=== PATIENT | male | born 1940 | race Caucasian/White ===

== ENCOUNTER 2016-12-18 14:25 | Inpatient (IN) | payer MEDICARE ==
[~2016-12-18] VITALS: Ht 170.2 cm; Wt 63.5 kg
[~2016-12-18 14:25] MED LIST: ALBU17IN INH; ALEV220C2 PO; ASPI81TA7 PO; DOCU250C PO; FINA5TAB2 PO; METO25TA74 PO; PRED10TA PO; PROA1AER INH; RANI75TA9 PO; SYNT75TA PO
[2016-12-18] MEDS ORDERED: NS 1,000 ML IV SCH (14:39)
[2016-12-18] MEDS ORDERED: OMEP20CA3 PO (14:40)
[2016-12-18] MEDS ORDERED: NS 500 ML IV ONE (14:45)
[2016-12-18 15:10] LABS: VENOUS O2 SATURATION 75.7 % (60.0-80.0); VENOUS PARTIAL PRESSURE CO2 51.1 mmHg (38.0-50.0); VENOUS PARTIAL PRESSURE O2 41.9 mmHg (30.0-50.0); VENOUS STANDARD HCO3 27.5 MEQ/L; VENOUS TOTAL CO2 31.6 MEQ/L (24.0-28.0)
[2016-12-18 15:11] LABS: BASO % 0.5 % (0.0-1.0); EOS % 0.6 % (0.0-3.0); LARGE UNSTAINED CELL # 0.1 K/mm3 (0.0-0.4); LARGE UNSTAINED CELL % 1.2 % (0.0-4.0); LYMPH # 0.7 K/mm3 (1.5-4.5); LYMPH % 12.7 % (24.0-44.0); MEAN CORPUSCULAR HEMOGLOBIN 34.6 pg (27.0-33.0); MEAN CORPUSCULAR HGB CONC 33.8 g/dl (32.0-36.5); MEAN CORPUSCULAR VOLUME 102.5 fl (80.0-96.0); MONO # 0.4 K/mm3 (0.0-0.8); MONO % 7.8 % (0.0-5.0); NEUTROPHILS # 4.3 K/mm3 (1.8-7.7); NEUTROPHILS % 77.3 % (36.0-66.0); PLATELET COUNT, AUTOMATED 269 k/mm3 (150-450); WHITE BLOOD COUNT 5.6 K/mm3 (4.0-10.0)
--- NOTE | 2016-12-18 15:25 | REP ---
CT of the brain without IV contrast: Comparison 05/17 2011. There is no hemorrhage. There is no focal edema, mass effect or midline shift. The sulci and ventricles are enlarged. This has progressed and is compatible with diffuse volume loss. There is a mild heterogeneity in the periventricular white matter compatible with chronic microvascular ischemia. This is unchanged. The visualized paranasal sinuses and mastoid air cells are clear. Impression: There is no hemorrhage, acute infarct or mass. There is diffuse volume loss and evidence for chronic microvascular ischemia. Signed by Gaurang Noguera MD 12/18/2016 03:17 P
[2016-12-18 15:43] LABS: ALBUMIN 3.1 GM/DL (3.2-5.2); ALBUMIN/GLOBULIN RATIO 0.84 (1.00-1.93); ALKALINE PHOSPHATASE 80 U/L (45-117); ALT/SGPT 23 U/L (12-78); ANION GAP 5 MEQ/L (8-16); AST/SGOT 33 U/L (15-37); BILIRUBIN,DIRECT < 0.1 MG/DL (0.0-0.2); BILIRUBIN,TOTAL 0.5 MG/DL (0.2-1.0); BLOOD UREA NITROGEN 17 MG/DL (7-18); CALCIUM LEVEL 8.2 MG/DL (8.8-10.2); CARBON DIOXIDE LEVEL 31 MEQ/L (21-32); CHLORIDE LEVEL 101 MEQ/L (98-107); CREATININE FOR GFR 0.57 MG/DL (0.70-1.30); GLOMERULAR FILTRATION RATE > 60.0 (>42); GLUCOSE, FASTING 91 MG/DL (83-110); POTASSIUM SERUM 4.8 MEQ/L (3.5-5.1); SODIUM LEVEL 137 MEQ/L (136-145); TOTAL PROTEIN 6.8 GM/DL (6.4-8.2)
--- NOTE | 2016-12-18 16:06 | REP ---
The portable chest, single frontal view, patient sitting upright: Comparisons 06/02/2016. The lung glez are clear. The cardiac size is normal. The lolita, mediastinum, and bony thorax are unremarkable. Impression: Negative portable chest. Signed by Gaurang Noguera MD 12/18/2016 03:59 P
[2016-12-18 16:28] LABS: METHADONE URINE NEGATIVE (NEGATIVE)
--- NOTE | 2016-12-18 16:44 | REP ---
Per one cans the right foot four views: There is diffuse demineralization. There is a nondisplaced spiral fracture of the distal shaft of the fifth digit metatarsal. There is no dislocation. No other fracture is identified. Joint spaces are unremarkable. No unusual calcifications. Impression: Nondisplaced spiral fracture of the distal shaft of the fifth digit metatarsal. Signed by Gaurang Noguera MD 12/18/2016 04:35 P
[2016-12-18] MEDS ORDERED: DOCU100C PO (18:56)
[2016-12-18] MEDS ORDERED: DOCUSATE SODIUM 100 MG CAP PO PRN (19:15)
[2016-12-18 19:50] VITALS: BP_SYST 123; BP_SYST 140; BP_DIAS 73; BP_DIAS 80
--- NOTE | 2016-12-18 20:41 | HPE ---
DATE OF ADMISSION: 12/18/2016 CHIEF COMPLAINT: Confusion. HISTORY OF PRESENT ILLNESS: The patient is a 76-year-old man who was brought to the emergency room by his son for reportedly having falls over the last few days as well as increased confusion. He tells me that at times in the day the patient does not know where he is or what is going on. At the present time, the patient is smoking imaginary cigarettes. He is disoriented to place, time and situation. He is only oriented to person. He recognizes his son but nobody else. Otherwise, the patient denies chest pain, shortness of breath, fevers, chills, nausea, vomiting, or diarrhea. No changes in bowel or bladder habits. The patient's son otherwise has not noticed any changes in his attitude. PAST MEDICAL HISTORY: 1. Dementia. 2. Benign prostatic hypertrophy (BPH) . 3. Hypothyroidism. 4. Hypertension. 5. Gastroesophageal reflux disease (GERD). 6. Chronic obstructive pulmonary disease (COPD). 7. Anxiety. 8. Alcohol abuse. 9. Tobacco abuse. ALLERGIES: The patient has no drug allergies. SURGICAL HISTORY: Cataract removal. REVIEW OF SYSTEMS: Negative other than in the history of present illness. FAMILY HISTORY: Noncontributory. SOCIAL HISTORY: The patient drinks approximately two alcoholic beverages per day. He reportedly drank significantly more in the past. He is an active smoker. He lives with his son since his last discharge. HOME MEDICATIONS: - Aleve 220 mg by mouth as needed for pain - Ventolin HFA every four hours as needed for shortness of breath - aspirin 81 mg daily - docusate 100 mg by mouth daily as needed for constipation - finasteride 5 mg daily - levothyroxine 75 mcg in the morning - metoprolol succinate extended release 25 mg daily - omeprazole 20 mg daily PHYSICAL EXAMINATION: VITAL SIGNS: Temperature 97.5, pulse 84, respiratory rate 24, blood pressure 115/74, oxygen saturation 91% on room air. GENERAL: He is a disheveled, elderly, man lying in bed pretending to smoke cigarettes and watching television. He does not appear to be in any acute distress. He is disheveled. He has poor dentition. He is malodorous. He has dry mucous membranes. He appears much more deconditioned and unkempt from the last time I saw him. CARDIOVASCULAR EXAM: S1, S2. Regular rate and rhythm. RESPIRATORY EXAM: Clear. ABDOMINAL EXAM: Bowel sounds present. The abdomen is soft and nontender. EXTREMITIES: No clubbing, cyanosis or edema. His right lower extremity is in a hard shoe. LABORATORY DATA: WBC 5.6, hemoglobin 12.7, hematocrit 37.6, platelet count 269. Chemistry panel: Sodium 137, potassium 4.8, chloride 101, bicarbonate 31, BUN 17, creatinine 0.5. CK 335, TSH 4.0. Toxicology is negative. Serum ethanol negative. UA is essentially unremarkable. Urine culture is pending. Blood culture is pending. IMAGING: The patient did have a CT of the head, which revealed no hemorrhage, acute infarct. The patient also had a chest x-ray, which revealed a negative portable chest. Foot x-ray revealed nondisplaced spiral fracture of the distal shaft of 5th digit metatarsal. ASSESSMENT AND PLAN: This is a 76-year-old man with changes in mentation. 1. Changes in mentation. I strongly suspect that this patient is having progressive dementia. I did see him back in May and at that time he had a B12 level checked, TSH level checked and it was a similar presentation where he had dementia. He was seen by psychiatry at that time as well, who determined that it was highly suspicious for dementia and he was eventually discharged home to the care of his son, who was told to followup with his primary care provider. Once again, the son presents and now tells me that the mental status change is not a chronic change but acute. My suspicion is that this is a continuation of his dementia that has already been evaluated here previously. To complete a dementia workup, I will check an ammonia level and MRI of the brain and admit him to observation status. Should he not be having an acute CVA or any other etiology to explain his changes in mentation, I do not see any acute abnormalities in his laboratories to explain his mental status, I suspect that he will require placement. It is also likely that the fracture of his right foot may be worsening his acute on chronic dementia. 2. Right foot fracture. I did discuss the case with Dr. Geller of orthopedic surgery, who suggested that the patient be weight bearing as tolerated and stiff soled shoe. He is to followup with orthopedics in one week. The patient should work with physical therapy (PT). He normally walks with a walker. A patient and family services (PFS) consultation has been placed. 3. Benign prostatic hypertrophy (BPH) . Continue with finasteride. 4. Alcohol abuse. The patient has not been drinking lately as he has been more confused. His serum alcohol level is negative. During his last stay he did become worsening confusion and lethargy with benzodiazepine. If he does become agitated, consider Serax, as previously recommended by psychiatry. I will place him on folic acid, multivitamin, thiamine. He will be monitored for any signs of symptoms of alcohol withdrawal. 5. Hypertension. The patient is on metoprolol. 6. Gastroesophageal reflux disease (GERD). The patient is on omeprazole. 7. Hypothyroidism. The patient is on levothyroxine. 8. Chronic obstructive pulmonary disease (COPD). The patient is on albuterol. 9. Deep vein thrombosis (DVT) prophylaxis. The patient is on Lovenox. 10. Tobacco use. Cessation counseling offered. DISPOSITION: The patient is admitted to the medical/surgical floor to Dr. Virgen's service. CARMENZA
[2016-12-18] MEDS: MULTIVITAMINS/MINERALS THERAP 1 TAB PO SCH (21:00)
[2016-12-18] MEDS: ASPIRIN 81 MG ENTERIC TAB PO SCH (21:00)
[2016-12-18] MEDS: OMEPRAZOLE 20 MG CAP PO SCH (21:00)
[2016-12-18] MEDS: FOLIC ACID 1 MG TAB PO SCH (21:00)
[2016-12-18] MEDS: FINASTERIDE 5 MG TAB PO SCH (21:00)
[2016-12-18] MEDS: METOPROLOL SUCC *XL* 25MG TAB (TopROL *XL*) PO SCH (21:01)
[2016-12-18] MEDS: THIAMINE 100 MG TAB PO SCH (21:01)
[2016-12-18] MEDS: SENOKOT S TAB PO SCH (21:04)
[2016-12-18] MEDS: PERCOCET 5MG/325MG TAB PO PRN (21:05)
[2016-12-18 22:00] VITALS: BP 140/80
[2016-12-19 05:40] LABS: MEAN CORPUSCULAR HEMOGLOBIN 33.3 pg (27.0-33.0); MEAN CORPUSCULAR HGB CONC 33.4 g/dl (32.0-36.5); MEAN CORPUSCULAR VOLUME 99.7 fl (80.0-96.0); WHITE BLOOD COUNT 6.6 K/mm3 (4.0-10.0)
[2016-12-19 05:50] LABS: ANION GAP 5 MEQ/L (8-16); BLOOD UREA NITROGEN 19 MG/DL (7-18); CALCIUM LEVEL 8.1 MG/DL (8.8-10.2); CARBON DIOXIDE LEVEL 28 MEQ/L (21-32); CHLORIDE LEVEL 104 MEQ/L (98-107); CREATININE FOR GFR 0.55 MG/DL (0.70-1.30); GLOMERULAR FILTRATION RATE > 60.0 (>42); GLUCOSE, FASTING 86 MG/DL (83-110); POTASSIUM SERUM 3.7 MEQ/L (3.5-5.1); SODIUM LEVEL 137 MEQ/L (136-145)
[2016-12-19] MEDS: LEVOTHYROXINE 0.075 MG TAB (75 MCG) PO SCH (05:52)
[2016-12-19 06:00] VITALS: BP 146/73
[2016-12-19 06:18] LABS: T UPTAKE 37 % (33-40)
[2016-12-19 06:19] LABS: THYROXINE (T4) 7.7 UG/DL (4.5-12.0)
--- NOTE | 2016-12-19 07:20 | ECGEPIP ---
Stationary ECG Study [facility] - ED Test Date: 2016-12-18 Pat Name: RYAN BAUTISTA Department: Room: - Gender: M Web Project Manager: DAKOTA : 1940 Requested By: HELEN MCDONALD Order Number: [id number] Reading MD: Mady Lema Measurements Intervals [place] Rate: 79 P: 52 LA: 178 QRS: 37 QRSD: 82 T: 51 QT: 368 QTc: 422 Interpretive Statements SINUS RHYTHM SEPTAL MYOCARDIAL INFARCTION, PROBABLY OLD NSTTW ABNORMALITY SIMILAR 06/02/16 Electronically Signed On 12-19-2016 7:20:13 EDT by Mady Lema
[2016-12-19] MEDS: LACTULOSE 20 GM/30 ML SYRUP UD PO SCH ×3 (09:01→14:19)
[2016-12-19] MEDS: FOLIC ACID 1 MG TAB PO SCH (09:04)
[2016-12-19] MEDS: ASPIRIN 81 MG ENTERIC TAB PO SCH (09:04)
[2016-12-19] MEDS: MULTIVITAMINS/MINERALS THERAP 1 TAB PO SCH (09:04)
[2016-12-19] MEDS: FINASTERIDE 5 MG TAB PO SCH (09:04)
[2016-12-19] MEDS: THIAMINE 100 MG TAB PO SCH (09:04)
[2016-12-19] MEDS: SENOKOT S TAB PO SCH ×2 (09:04→20:06)
[2016-12-19] MEDS: OMEPRAZOLE 20 MG CAP PO SCH (09:04)
[2016-12-19] MEDS: METOPROLOL SUCC *XL* 25MG TAB (TopROL *XL*) PO SCH (09:05)
[2016-12-19] MEDS: ENOXAPARIN 40 MG/0.4 ML SYRINGE (J1650) SC SCH (09:08)
--- NOTE | 2016-12-19 09:11 | IPN ---
DATE: 12/19/2016 The patient is seen and examined at the bedside. The chart has been reviewed. Sitter at the bedside. Has noted increasing confusion. The patient is oriented to person only, states that he is in [place]. He does not complain of any chest pain, pressure, tightness, nausea, vomiting, diarrhea, dysuria, urgency, frequency. The patient's right foot is immobilized. He has a low grade temperature this morning. No other issues overnight. Maximum temperature (T max) 100.2, current temperature 99.6, pulse 81, respiratory rate 16, blood pressure 146/73, 95% on room air. Generally, the patient is confused, awake, alert, oriented to person only, disoriented to time and place. No cyanosis, icterus. No jugular venous distention. No thyromegaly. Lungs are clear to auscultation. No wheezing, rales or rhonchi. Heart: S1, S2, sinus rhythm. Abdomen is soft, nontender, nondistended. Extremities: No edema. Neurologically, the patient is a little disoriented, awake, alert, oriented to person only. He has purposeful movements. Unable to follow commands, not cooperative. The patient is repositioning himself in bed. White count 6.6, hemoglobin 11, hematocrit 33, platelet count 273. Sodium 137, potassium 3.7, chloride 104, bicarbonate 28, BUN 19, creatinine 0.55, glucose of 86, calcium of 8.1. Methicillin-resistant Staphylococcus aureus (MRSA) and respiratory panel: Negative for respiratory panel. MRSA is pending. Urine culture and blood cultures are pending. Chest x-ray is negative. Lab data, imaging studies have been reviewed. ASSESSMENT AND PLAN: This is a 76-year-old male brought in by his son due to recurrent fall for the past few days and confusion and smoking imaginary cigarettes, recognizes his son but was inappropriate. He has a prior history of ongoing dementia, BPH, hypothyroidism, hypertension, reflux, chronic obstructive pulmonary disease (COPD), anxiety, alcohol and tobacco abuse. He was found to have a fracture of the distal shaft of the 5th digit on the right foot. IMPRESSION: 1. Right foot nondisplaced spiral fracture of the distal shaft of the 5th digit metatarsal. Orthopedic surgery has been consulted. Recommended weightbearing as tolerated and a stiff soled shoe. The patient should work with physical therapy. Usually he walks with a walker. Patient and family services (PFS) has been consulted. Followup with orthopedics in 1 weeks time. 2. Altered mental status with progressive dementia. B12 checked, TSH. Similar presentation. Obtain a full thyroid panel. He has been seen by psychiatry previously. Ammonia level is elevated; therefore, may contribute to worsening dementia. Will continue to give lactulose and check ammonia levels until normalized. 3. Low grade fever. At this time, workup has been negative. No empiric antibiotics. Continue to monitor cultures and symptoms. 4. BPH. On finasteride. 5. Alcohol abuse. Has not been drinking lately as he has been more confused. Serum alcohol is negative. During previous hospital stay, he had worsening confusion and lethargy with benzodiazepine. As needed Serax as previously recommended by psychiatry. Continue on folic acid, multivitamin and thiamine. Monitor for signs of withdrawal. 6. Hypertension. On metoprolol. 7. Reflux. On omeprazole. 8. Hypothyroidism. On levothyroxine. Await thyroid function test. 9. Chronic obstructive pulmonary disease. On albuterol. 10. Deep vein thrombosis (DVT) prophylaxis. On Lovenox.
[2016-12-19 14:00] VITALS: BP 131/87
[2016-12-19] MEDS: NICOTINE 7 MG/24 HR TRANSDERMAL TD SCH (14:19)
--- NOTE | 2016-12-19 14:29 | REP ---
Right hip two views: Comparison is 02/10/2012. There is diffuse demineralization. There is no fracture or dislocation. There is no femoral head deformity. There is minimal joint space narrowing. There are no calcifications or foreign bodies. Impression: Demineralization, otherwise negative right hip. Signed by Gaurang Noguera MD 12/19/2016 02:21 P
[2016-12-19] MEDS: PERCOCET 5MG/325MG TAB PO PRN (17:38)
[2016-12-19 22:00] VITALS: BP 140/80
[2016-12-20] MEDS: PERCOCET 5MG/325MG TAB PO PRN ×4 (01:23→17:24)
[2016-12-20 05:37] LABS: MEAN CORPUSCULAR HEMOGLOBIN 32.8 pg (27.0-33.0); MEAN CORPUSCULAR HGB CONC 32.1 g/dl (32.0-36.5); MEAN CORPUSCULAR VOLUME 102.3 fl (80.0-96.0); RED CELL DISTRIBUTION WIDTH 12.3 % (11.5-14.5); WHITE BLOOD COUNT 6.4 K/mm3 (4.0-10.0)
[2016-12-20 05:55] LABS: ANION GAP 7 MEQ/L (8-16); BLOOD UREA NITROGEN 18 MG/DL (7-18); CALCIUM LEVEL 7.9 MG/DL (8.8-10.2); CARBON DIOXIDE LEVEL 28 MEQ/L (21-32); CHLORIDE LEVEL 104 MEQ/L (98-107); CREATININE FOR GFR 0.52 MG/DL (0.70-1.30); GLOMERULAR FILTRATION RATE > 60.0 (>42); GLUCOSE, FASTING 85 MG/DL (83-110); POTASSIUM SERUM 3.6 MEQ/L (3.5-5.1); SODIUM LEVEL 139 MEQ/L (136-145)
[2016-12-20 06:00] VITALS: BP 156/88
[2016-12-20] MEDS: LEVOTHYROXINE 0.075 MG TAB (75 MCG) PO SCH (06:10)
[2016-12-20] MEDS: LIDOCAINE 5% OINT 30 GM TOP SCH ×2 (09:00→20:30)
[2016-12-20] MEDS ORDERED: PREVNAR 13 VACCINE SYRINGE (CPT CODE:90670) IM SCH (09:00)
--- NOTE | 2016-12-20 10:30 | IPNPDOC ---
Subjective Date Seen The patient was seen on 12/20/16. Subjective Chief Complaint/HPI The patient is a 76-year-old male admitted with a reason for visit of Change In Behavior. General: Reports: ROS Unobtainable (pt is laying in bed, arousable to verbal stimuli and sternal rub, but falls asleep during questions ) Objective Physical Examination General Exam: Positive: No Acute Distress, Negative: Alert (laying in bed, will arouse to verbal and sternal rub stimuli but will not stay awake to answer questions) Eye Exam: Negative: PERRLA (b/l pupils +2 mimimally reactive ), Ptosis, Sclera icteric ENT Exam: Positive: Atraumatic, Mucous membr. moist/pink Neck Exam: Positive: Supple Chest Exam: Positive: Clear to auscultation, Normal air movement, Negative: Rales, Rhonchi, Wheezing Heart Exam: Positive: Normal S1, Normal S2, Rate Normal, Negative: Murmurs Abdomen Exam: Positive: Normal bowel sounds, Soft, Negative: BS Hyperactive, BS Hypoactive, Tenderness Extremity Exam: Negative: Cyanosis, Edema Assessment /Plan Problems (1) Foot fracture, right Status: Acute Response to Treatment: Stable Problem Text: ortho consulted c/w weight bearing as tolerated and stiff soled shoe c/w PT PFS cx f/u w/ ortho outpt in 1 week after d/c (2) Altered mental status, unspecified Status: Chronic Response to Treatment: Stable Problem Text: most likely progressive dementia b12 and TSH okay presented similar to this in prior admission thyroid panel normal continue to monitor pt abusable this AM to verbal and sternal rub stimuli , will not stay awake for questions, most of history taken from pts med. records received Percocet at 0630 AM last ammonia 24 can consider d/c lactulose pupils +2 mm b/l minimally reactive neuro check q4h continue to monitor (3) Low grade fever Status: Acute Response to Treatment: Stable Problem Text: 98.2 F workup has been negative no empiric abx needed at this time continue to monitor cultures and pt symptoms (4) HTN (hypertension) Status: Chronic Response to Treatment: Stable Problem Text: 156/68 continue to monitor c/w metoprolol (5) Alcohol abuse Status: Chronic Problem Text: has not been drinking alcohol lately serum alcohol neg worsening confusion and lethargy on last admission w/ benzo. therapy, will avoid and give serax as previously recommended by psych. c/w folic acid, multivitamin and thiamine will monitor for signs of withdrawal (6) GERD (gastroesophageal reflux disease) Status: Chronic Response to Treatment: Stable Problem Text: c/w omeprazole (7) COPD (chronic obstructive pulmonary disease) Status: Chronic Response to Treatment: Stable Problem Text: c/w albuterol therapy (8) Hypothyroidism Status: Chronic Response to Treatment: Stable Problem Text: c/w levothyroxine (9) DVT prophylaxis Status: Acute Response to Treatment: Stable Problem Text: SCD TEDS Plan/VTE VTE Prophylaxis Ordered?: Yes VS, I&O, 24H, Fishbone Vital Signs/I&O Vital Signs Date Time Temp Pulse Resp B/P Pulse Ox O2 Delivery O2 Flow Rate FiO2 12/20/16 07:15 17 Room Air 12/20/16 06:00 98.2 63 156/88 92 I&O- Last 24 Hours up to 6 AM 12/20/16 06:00 Intake Total 150 ml Output Total 150 ml Balance 0 ml Laboratory Data 24H LABS Laboratory Tests 2 12/19/16 18:32: Ammonia 29 12/20/16 00:01: Ammonia 32 12/20/16 05:17: Ammonia 24, Anion Gap 7L, Blood Urea Nitrogen 18, Creatinine 0.52L, Sodium Level 139, Potassium Level 3.6, Chloride Level 104, Carbon Dioxide Level 28, Calcium Level 7.9L, Glomerular Filtration Rate > 60.0 CBC/BMP Laboratory Tests 12/20/16 05:17 Calcium Level 7.9 L, Red Blood Count 3.57 L, Mean Corpuscular Volume 102.3 H, Mean Corpuscular Hemoglobin 32.8, Mean Corpuscular Hemoglobin Concent 32.1, Red Cell Distribution Width 12.3 Microbiology Microbiology 12/18/16 Blood Culture - Preliminary, Resulted No growth after 24 hours . All specim... 12/19/16 MRSA Screen - Final, Complete 12/19/16 Respiratory Virus Panel (PCR) (ALISSA) - Final, Complete 12/18/16 Urine Culture - Final, Complete GME ATTESTATION GME ATTESTATION My preceptor for this patient encounter was physically present in the building during the encounter and was fully available. As needed, all aspects of the patient interview, examination, medical decision making process, and medical care plan development were reviewed and approved by the preceptor. Preceptor is aware and concurs with the plan as stated in the body of this note and will attest to such by his/her cosignature. BECKY MARTIN DO Dec 20, 2016 10:30
[2016-12-20] MEDS: NICOTINE 7 MG/24 HR TRANSDERMAL TD SCH (10:41)
[2016-12-20] MEDS: ENOXAPARIN 40 MG/0.4 ML SYRINGE (J1650) SC SCH (10:42)
[2016-12-20] MEDS: ASPIRIN 81 MG ENTERIC TAB PO SCH (10:43)
[2016-12-20] MEDS: FINASTERIDE 5 MG TAB PO SCH (10:43)
[2016-12-20] MEDS: MULTIVITAMINS/MINERALS THERAP 1 TAB PO SCH (10:43)
[2016-12-20] MEDS: THIAMINE 100 MG TAB PO SCH (10:43)
[2016-12-20] MEDS: SENOKOT S TAB PO SCH ×2 (10:44→20:30)
[2016-12-20] MEDS: OMEPRAZOLE 20 MG CAP PO SCH (10:44)
[2016-12-20] MEDS: FOLIC ACID 1 MG TAB PO SCH (10:44)
[2016-12-20] MEDS: METOPROLOL SUCC *XL* 25MG TAB (TopROL *XL*) PO SCH (10:46)
[2016-12-20] MEDS: ACETAMINOPHEN TAB 650MG DOSE (2X325MG) PO PRN (13:54)
[2016-12-20 14:00] VITALS: BP 116/73
[2016-12-20] MEDS: KETOROLAC 30 MG/ML VIAL (J1885) IV PRN (14:08)
--- NOTE | 2016-12-20 15:36 | REP ---
MRI BRAIN WITHOUT CONTRAST: HISTORY: Altered mental status. COMPARISON: CT 12/18/2016 The examination is incomplete. The examination is limited secondary to motion. Areas of increased signal intensity on T2-weighted images are present in the periventricular and subcortical white matter. This represents small vessel ischemic disease. There is no definite infarct, mass or midline shift. The ventricular system and cortical sulci are dilated consistent with mild volume loss. There is no extracerebral collection. Mucosal thickening is present in the left mastoid air cells. IMPRESSION: Limited examination demonstrating small vessel ischemic disease and mild volume loss. Signed by Malcolm Long MD 12/20/2016 03:52 P
[2016-12-20 22:00] VITALS: BP 128/64
[2016-12-21] MEDS: PERCOCET 5MG/325MG TAB PO PRN ×4 (00:16→23:47)
[2016-12-21 06:00] VITALS: BP 138/80
[2016-12-21] MEDS: LEVOTHYROXINE 0.075 MG TAB (75 MCG) PO SCH (06:12)
[2016-12-21] MEDS: KETOROLAC 30 MG/ML VIAL (J1885) IV PRN (06:47)
[2016-12-21 07:01] LABS: MEAN CORPUSCULAR HEMOGLOBIN 31.5 pg (27.0-33.0); MEAN CORPUSCULAR HGB CONC 31.1 g/dl (32.0-36.5); MEAN CORPUSCULAR VOLUME 101.5 fl (80.0-96.0); WHITE BLOOD COUNT 7.3 K/mm3 (4.0-10.0)
[2016-12-21 07:05] LABS: ANION GAP 5 MEQ/L (8-16); BLOOD UREA NITROGEN 24 MG/DL (7-18); CARBON DIOXIDE LEVEL 31 MEQ/L (21-32); CHLORIDE LEVEL 103 MEQ/L (98-107); CREATININE FOR GFR 0.58 MG/DL (0.70-1.30); GLOMERULAR FILTRATION RATE > 60.0 (>42); GLUCOSE, FASTING 86 MG/DL (83-110); POTASSIUM SERUM 3.8 MEQ/L (3.5-5.1); SODIUM LEVEL 139 MEQ/L (136-145)
--- NOTE | 2016-12-21 07:56 | IPNPDOC ---
Subjective Date Seen The patient was seen on 12/21/16. Subjective Chief Complaint/HPI The patient is a 76-year-old male admitted with a reason for visit of Change In Behavior. General: Denies: Chills Constitutional: Denies: Chills Eyes: Denies: Pain, Vision change, Conjunctivae inflammation, Eyelid inflammation Pulmonary: Denies: Dyspnea, Cough Cardiovascular: Denies: Chest Pain, Palpitations Gastrointestinal: Denies: Nausea, Vomiting Psych: Reports: Other Psych (pt has baseline dementia) Objective Physical Examination General Exam: Positive: No Acute Distress, Negative: Alert (laying comfortably in bed) Eye Exam: Positive: PERRLA (b/l pupils +2 mimimally reactive, unchanged from one day prior), Negative: Sclera icteric, Ptosis ENT Exam: Positive: Atraumatic, Mucous membr. moist/pink Neck Exam: Positive: Supple Chest Exam: Positive: Clear to auscultation, Normal air movement, Negative: Rales, Rhonchi, Wheezing Heart Exam: Positive: Rate Normal, Normal S1, Normal S2, Negative: Murmurs Abdomen Exam: Positive: Normal bowel sounds, Soft, Negative: BS Hyperactive, BS Hypoactive, Tenderness Extremity Exam: Negative: Cyanosis, Edema Assessment /Plan Problems (1) Foot fracture, right Status: Acute Response to Treatment: Stable Problem Text: ortho consulted-appreciate their recommendations c/w weight bearing as tolerated and stiff soled shoe c/w PT PFS cx f/u w/ ortho outpt in 1 week after d/c (2) Altered mental status, unspecified Status: Chronic Response to Treatment: Stable Problem Text: most likely progressive dementia b12 and TSH okay presented similar to this in prior admission thyroid panel normal continue to monitor pt abusable this AM to verbal and sternal rub stimuli , will not stay awake for questions, most of history taken from pts med. records received Percocet at 0630 AM last ammonia 24 can consider d/c lactulose pupils +2 mm b/l minimally reactive will consider PFS consult for potential placement neuro check q4h continue to monitor (3) Low grade fever Status: Acute Response to Treatment: Stable Problem Text: 98.2 F workup has been negative no empiric abx needed at this time continue to monitor cultures and pt symptoms (4) Right hip pain Status: Acute Response to Treatment: Stable Problem Text: hip x-ray neg for fracture will obtain right knee x-ray to further evaluate for fracture causing pain continue to monitor pain medication Percocet, toradol and lidocaine gel (5) HTN (hypertension) Status: Chronic Response to Treatment: Stable Problem Text: 138/80 continue to monitor c/w metoprolol (6) Alcohol abuse Status: Chronic Problem Text: has not been drinking alcohol lately serum alcohol neg worsening confusion and lethargy on last admission w/ benzo. therapy, will avoid and give serax as previously recommended by psych. c/w folic acid, multivitamin and thiamine will monitor for signs of withdrawal (7) GERD (gastroesophageal reflux disease) Status: Chronic Response to Treatment: Stable Problem Text: c/w omeprazole (8) COPD (chronic obstructive pulmonary disease) Status: Chronic Response to Treatment: Stable Problem Text: c/w albuterol therapy (9) Hypothyroidism Status: Chronic Response to Treatment: Stable Problem Text: c/w levothyroxine (10) DVT prophylaxis Status: Acute Response to Treatment: Stable Problem Text: SCD TEDS Plan/VTE VTE Prophylaxis Ordered?: Yes VS, I&O, 24H, Fishbone Vital Signs/I&O Vital Signs Date Time Temp Pulse Resp B/P Pulse Ox O2 Delivery O2 Flow Rate FiO2 12/21/16 06:00 98.1 62 19 138/80 92 Room Air I&O- Last 24 Hours up to 6 AM 12/21/16 06:00 Intake Total 720 ml Output Total 550 ml Balance 170 ml Laboratory Data 24H LABS Laboratory Tests 2 12/21/16 06:27: Anion Gap 5L, Blood Urea Nitrogen 24H, Creatinine 0.58L, Sodium Level 139, Potassium Level 3.8, Chloride Level 103, Carbon Dioxide Level 31, Calcium Level 8.0L, Glomerular Filtration Rate > 60.0 CBC/BMP Laboratory Tests 12/21/16 06:27 Calcium Level 8.0 L, Red Blood Count 3.68 L, Mean Corpuscular Volume 101.5 H, Mean Corpuscular Hemoglobin 31.5, Mean Corpuscular Hemoglobin Concent 31.1 L, Red Cell Distribution Width 12.0 Microbiology Microbiology 12/18/16 Blood Culture - Preliminary, Resulted No Growth after 48 hours. All Specime... 12/19/16 MRSA Screen - Final, Complete 12/19/16 Respiratory Virus Panel (PCR) (ALISSA) - Final, Complete 12/18/16 Urine Culture - Final, Complete GME ATTESTATION GME ATTESTATION My preceptor for this patient encounter was physically present in the building during the encounter and was fully available. As needed, all aspects of the patient interview, examination, medical decision making process, and medical care plan development were reviewed and approved by the preceptor. Preceptor is aware and concurs with the plan as stated in the body of this note and will attest to such by his/her cosignature. ATTENDING NOTE I have both independently examined this patient as well as reviewed the note. I have discussed in detail with the resident the findings and plan of treatment as documented in the residents note. I will continue to follow the patient and offer further guidance to the patients care as necessary during this hospital stay. BECKY Muhammad MD, DO Dec 21, 2016 07:56 AZEEM NOGUERA MD Dec 22, 2016 06:38
[2016-12-21] MEDS: ENOXAPARIN 40 MG/0.4 ML SYRINGE (J1650) SC SCH (10:15)
[2016-12-21] MEDS: THIAMINE 100 MG TAB PO SCH (10:15)
[2016-12-21] MEDS: FINASTERIDE 5 MG TAB PO SCH (10:15)
[2016-12-21] MEDS: NICOTINE 7 MG/24 HR TRANSDERMAL TD SCH (10:15)
[2016-12-21] MEDS: OMEPRAZOLE 20 MG CAP PO SCH (10:16)
[2016-12-21] MEDS: MULTIVITAMINS/MINERALS THERAP 1 TAB PO SCH (10:16)
[2016-12-21] MEDS: ASPIRIN 81 MG ENTERIC TAB PO SCH (10:16)
[2016-12-21] MEDS: FOLIC ACID 1 MG TAB PO SCH (10:16)
[2016-12-21] MEDS: SENOKOT S TAB PO SCH ×2 (10:16→19:48)
[2016-12-21] MEDS: LIDOCAINE 5% OINT 30 GM TOP SCH ×2 (10:17→21:10)
[2016-12-21] MEDS: METOPROLOL SUCC *XL* 25MG TAB (TopROL *XL*) PO SCH (10:18)
--- NOTE | 2016-12-21 12:04 | REP ---
RIGHT KNEE, FIVE VIEWS: HISTORY: Knee pain. There is no acute fracture or dislocation. The joint spaces are normal in appearance. The bony structures are osteopenic. IMPRESSION: Degenerative change as described above. Signed by Malcolm Long MD 12/21/2016 12:21 P
[2016-12-21] MEDS: ACETAMINOPHEN TAB 650MG DOSE (2X325MG) PO PRN (19:48)
[2016-12-22] MEDS: KETOROLAC 30 MG/ML VIAL (J1885) IV PRN (05:53)
[2016-12-22] MEDS: LEVOTHYROXINE 0.075 MG TAB (75 MCG) PO SCH (05:53)
[2016-12-22 06:00] VITALS: BP 141/83
[2016-12-22 07:01] LABS: MEAN CORPUSCULAR HEMOGLOBIN 32.8 pg (27.0-33.0); MEAN CORPUSCULAR HGB CONC 32.6 g/dl (32.0-36.5); MEAN CORPUSCULAR VOLUME 100.6 fl (80.0-96.0); RED CELL DISTRIBUTION WIDTH 12.1 % (11.5-14.5); WHITE BLOOD COUNT 7.5 K/mm3 (4.0-10.0)
[2016-12-22 07:13] LABS: ANION GAP 6 MEQ/L (8-16); BLOOD UREA NITROGEN 15 MG/DL (7-18); CALCIUM LEVEL 7.8 MG/DL (8.8-10.2); CARBON DIOXIDE LEVEL 30 MEQ/L (21-32); CHLORIDE LEVEL 100 MEQ/L (98-107); GLOMERULAR FILTRATION RATE > 60.0 (>42); GLUCOSE, FASTING 92 MG/DL (83-110); POTASSIUM SERUM 3.8 MEQ/L (3.5-5.1); SODIUM LEVEL 136 MEQ/L (136-145)
[2016-12-22] MEDS: MULTIVITAMINS/MINERALS THERAP 1 TAB PO SCH (09:11)
[2016-12-22] MEDS: THIAMINE 100 MG TAB PO SCH (09:11)
[2016-12-22] MEDS: FINASTERIDE 5 MG TAB PO SCH (09:11)
[2016-12-22] MEDS: ASPIRIN 81 MG ENTERIC TAB PO SCH (09:11)
[2016-12-22] MEDS: OMEPRAZOLE 20 MG CAP PO SCH (09:11)
[2016-12-22] MEDS: SENOKOT S TAB PO SCH ×2 (09:12→20:35)
[2016-12-22] MEDS: METOPROLOL SUCC *XL* 25MG TAB (TopROL *XL*) PO SCH (09:12)
[2016-12-22] MEDS: ENOXAPARIN 40 MG/0.4 ML SYRINGE (J1650) SC SCH (09:13)
[2016-12-22] MEDS: PERCOCET 5MG/325MG TAB PO PRN ×2 (09:14→20:36)
[2016-12-22] MEDS: NICOTINE 7 MG/24 HR TRANSDERMAL TD SCH (09:15)
[2016-12-22] MEDS: LIDOCAINE 5% OINT 30 GM TOP SCH ×2 (09:15→20:36)
[2016-12-22] MEDS: FOLIC ACID 1 MG TAB PO SCH (09:17)
[2016-12-22 20:15] VITALS: BP 115/58
--- NOTE | 2016-12-22 22:23 | CR ---
DATE OF CONSULTATION: 12/22/2016 CHIEF COMPLAINT: The patient is confused. SUBJECTIVE: He is 76 years old. I have been asked to see him to make an assessment regarding his capacity to make decisions regarding finances. The hospitalist has asked me to see the patient and make the assessment. The chart is reviewed and attempt is made to interview the patient as well, but that was limited given his cognitive difficulties. He has several difficulties, has dementia, benign prostatic hypertrophy (BPH), hypothyroidism, hypertension, gastroesophageal reflux disease (GERD), chronic obstructive pulmonary disease (COPD) and also has a history of alcohol abuse. He came in a few days ago, was brought to the emergency room by his son, who currently lives with the patient as the patient had falls over the last few days with increasing confusion. He was disoriented and was thought to be smoking imaginary cigarettes when he was first seen, per Dr. Ferrell, hospitalist's note. The patient is noted to be oriented only to himself, but he recognizes son and nobody else. He has had periods of confusion, and apparently has had it in the past, including when he was seen by psychiatry, Dr. Washington, on consultation in May of last year, whose note is reviewed and the patient was quite confused at the time, had cognitive deficits. There was some concern that she was misusing alcohol, and this was contributing to the confusion as well. According to the notes, the patient this time around had recent periods of confusion, particularly per the son. He is not sure where he is, appears distracted, picking at things and seems to be, in some ways, stretching his arms and then pulling them towards him, as if he is pulling something and asks me to get it. Also appears to be hallucinating visually. He is not sure where he is. Does not think that this is a hospital. Indicated he knew this was [facility], as well as the [facility], but did not know the time or the season. Thought it was winter, that it was June and later thought it was October. Says had a friend that had looked after him in the past, someone called Kiya. He also suggests that he would rather she looks after his affairs. When matters related to his finances are discussed, whether he would wish to have his son look after them, he answers, "Yes and no," but does not elaborate much after that. Is unable to comment, appears distracted. Then suggests that he is concerned that his son may get into trouble but not details. Later says that the son has been in alf in the past and that [place] but [place] details. He also indicated his son does not like Kiya. Says has another son in [place], and has a couple of sisters locally. Says they contact him only when they need him. It should be noted, he is able to indicate this information on direct questioning and for brief moments only, and the bulk is characterized by his being tangential, confused, and making statements not in context with what is being discussed. PAST PSYCHIATRIC HISTORY: I am not aware of any formally. He has been seen by psychiatry in consultation here. SUBSTANCE ABUSE HISTORY: Apparently, has had a history of misusing alcohol, unclear if that is current, but does not appear to be so. MEDICAL HISTORY: He has several difficulties, as indicated above, including dementia, chronic obstructive pulmonary disease (COPD), gastroesophageal reflux disease (GERD). Has had recent falls. MEDICATIONS: These include: - Lovenox - Synthroid - Senokot - Proventil - omeprazole - oxycodone - aspirin - thiamine - folic acid INVESTIGATIONS: Brain imaging has shown a MRI a couple of days ago that showed small vessel ischemic disease, mild volume loss. LABORATORY VALUES: Toxicology is essentially negative. Metabolic profile done today shows electrolytes within normal limits. Ammonia a couple of days ago was also within normal limits. Complete blood count shows hemoglobin 11.5, hematocrit 35.1, white cell count is 7.5. VITAL SIGNS: Done earlier today showed a blood pressure 158/64, pulse 80, temperature 98.3. MENTAL STATUS EXAMINATION: He is lying in bed. He is somewhat unkempt. He is cooperative but appears distracted, not able to maintain attention or to shift it adequately, picking at the air and seeming to be pulling in things, stretches his arms out and then toward him alternately and asking me to get things, then eluded to animals in the place. He is not coherent except for very brief sentences. Speech is disorganized, tangential, makes statements not in context of what is being asked or discussed. No active evidence of any active thoughts of hurting himself or anyone else. Appears to be internally preoccupied, possibly visually hallucinating. Cannot maintain attention adequately, but seems to be alert for the most part. He is oriented to self, not to place nor time. I am unable to test further for cognition, but it seems compromised given his being distracted and disoriented. Judgment is poor, as is insight. ASSESSMENT: 1. Neurocognitive disorder (dementia), possibly vascular type. 2. Rule out delirium superimposed on dementia. The patient is confused, disoriented, has a difficult time maintaining attention or shifting it for any great length of time. He also appears to be hallucinating visually. When management of finances is attempted to be discussed, he is ambivalent as to whether he wants anyone else controlling them, but does say would rather have Kiya, a friend, do it. He is not able to hold that thought for long, however. Given the above, and the difficulties with perceptual disturbances and cognition, at present, he does not appear to have the capacity to make decisions regarding who he wishes to deal with his finances. If the current perceptual disturbances are secondary to delirium superimposed on dementia, cognition may possibly improve, in which case a further assessment may be needed. I would suggest exploring all available possibilities, optimizing medical care, and also including Adult Protective Services if the patient goes home. Thank you for the consultation. If you have any questions, please call. The assessment took 30 minutes.
[2016-12-23] MEDS: LEVOTHYROXINE 0.075 MG TAB (75 MCG) PO SCH (05:46)
[2016-12-23 06:00] VITALS: BP 114/64
[2016-12-23] MEDS: METOPROLOL SUCC *XL* 25MG TAB (TopROL *XL*) PO SCH ×2 (09:00→09:52)
[2016-12-23] MEDS: OMEPRAZOLE 20 MG CAP PO SCH ×2 (09:00→09:48)
[2016-12-23] MEDS: THIAMINE 100 MG TAB PO SCH ×2 (09:00→09:48)
[2016-12-23] MEDS: FOLIC ACID 1 MG TAB PO SCH ×2 (09:00→09:48)
[2016-12-23] MEDS: MULTIVITAMINS/MINERALS THERAP 1 TAB PO SCH ×2 (09:00→09:48)
[2016-12-23] MEDS: SENOKOT S TAB PO SCH ×3 (09:00→21:32)
[2016-12-23] MEDS: FINASTERIDE 5 MG TAB PO SCH ×2 (09:00→09:48)
[2016-12-23] MEDS: ENOXAPARIN 40 MG/0.4 ML SYRINGE (J1650) SC SCH ×2 (09:00→09:52)
[2016-12-23] MEDS: ASPIRIN 81 MG ENTERIC TAB PO SCH ×2 (09:00→09:48)
[2016-12-23] MEDS: NICOTINE 7 MG/24 HR TRANSDERMAL TD SCH (09:47)
[2016-12-23] MEDS: LIDOCAINE 5% OINT 30 GM TOP SCH ×2 (09:53→21:33)
[2016-12-23 12:48] LABS: BASO % 0.1 % (0.0-1.0); EOS # 0.1 K/mm3 (0.0-0.50); EOS % 0.9 % (0.0-3.0); LARGE UNSTAINED CELL # 0.2 K/mm3 (0.0-0.4); LARGE UNSTAINED CELL % 2.1 % (0.0-4.0); LYMPH # 0.7 K/mm3 (1.5-4.5); LYMPH % 9.9 % (24.0-44.0); MEAN CORPUSCULAR HEMOGLOBIN 34.1 pg (27.0-33.0); MEAN CORPUSCULAR HGB CONC 33.8 g/dl (32.0-36.5); MEAN CORPUSCULAR VOLUME 100.9 fl (80.0-96.0); MONO # 0.5 K/mm3 (0.0-0.8); NEUTROPHILS # 5.7 K/mm3 (1.8-7.7); PLATELET COUNT, AUTOMATED 250 k/mm3 (150-450); RED CELL DISTRIBUTION WIDTH 12.1 % (11.5-14.5); WHITE BLOOD COUNT 7.1 K/mm3 (4.0-10.0)
[2016-12-23 13:30] LABS: ANION GAP 8 MEQ/L (8-16); BLOOD UREA NITROGEN 15 MG/DL (7-18); CALCIUM LEVEL 7.9 MG/DL (8.8-10.2); CARBON DIOXIDE LEVEL 27 MEQ/L (21-32); CHLORIDE LEVEL 101 MEQ/L (98-107); CREATININE FOR GFR 0.52 MG/DL (0.70-1.30); GLOMERULAR FILTRATION RATE > 60.0 (>42); GLUCOSE, FASTING 90 MG/DL (83-110); SODIUM LEVEL 136 MEQ/L (136-145)
[2016-12-23] MEDS: diphenhydrAMINE CREAM 30GM TOP PRN ×2 (14:02→21:33)
[2016-12-23] MEDS: PERCOCET 5MG/325MG TAB PO PRN (14:54)
[2016-12-23 16:33] LABS: ALBUMIN 2.7 GM/DL (3.2-5.2); ALBUMIN/GLOBULIN RATIO 0.75 (1.00-1.93); BILIRUBIN,DIRECT 0.1 MG/DL (0.0-0.2); BILIRUBIN,TOTAL 0.4 MG/DL (0.2-1.0); TOTAL PROTEIN 6.3 GM/DL (6.4-8.2)
[2016-12-23] MEDS: LACTULOSE 20 GM/30 ML SYRUP UD PO SCH ×2 (17:18→21:33)
--- NOTE | 2016-12-23 19:13 | IPN ---
DATE: 12/23/2016 The patient was seen and examined. Nursing staff reported increased lethargy and confusion. Patient was delirious but arousable. Denies any significant pain but was mumbling, was mumbling speech. Otherwise able to move all four extremities. Unable to obtain further history. Also nursing staff reported bilateral lower extremity, knee, and foot petechial rash. VITAL SIGNS: Temperature 98.8, pulse 76, respirations 18, blood pressure 114/64, pulse oximetry 91% on room air. LABORATORY DATA: WBC 7.1, hemoglobin and hematocrit 12.2/36, platelets 250. Chemistry: Sodium 136, potassium 4, chloride 101, bicarbonate 27, BUN 15, creatinine 0.52, ammonia level 3.2. PHYSICAL EXAMINATION: GENERAL: The patient is comfortable, sleeping, arousable to sternal rubs. Not really following much command. HEENT: Dry mucous membrane. Normocephalic. CARDIAC: Regular rate and rhythm. Normal S1, S2. PULMONARY: Coarse rhonchi bilateral. ABDOMEN: Soft, nontender. EXTREMITIES: No edema bilateral lower extremities. Withdrawn to pain. ASSESSMENT AND PLAN: This is a 76-year-old male patient with underlying medical history BPH, dementia, hypothyroidism, hypertension, reflux, chronic obstructive pulmonary disease (COPD), anxiety, alcohol use and tobacco abuse. Was initially brought in here with confusion, smoking imaginary cigarettes and also fracture of right 5th distal metatarsal. PROBLEMS: 1. Right foot nondisplaced spiral fracture of distal shaft of the 5th metatarsal. Orthopedics have been consulted. Recommended weightbearing as tolerated and stiff sole shoes. Physical therapy as tolerated, walker. Patient Family Services (PFS) consulted. Followup orthopedics as outpatient. 2. Encephalopathy secondary to progression of dementia versus delirium. Patient does not appear infectious. Ammonia level initially elevated, given lactulose. Current ammonia level is negative. B12 appreciated. TSH appreciated. Psychiatry has been consulted. Patient currently does not have capacity to determine his medical care or appoint who manages his finances.. Lactulose as tolerated. Followup liver function. The patient is febrile or infectious, will consider further workup. MRI appreciated. CT head appreciated. Low grade fever. Currently workup has been negative. Negative cultures and has been afebrile. Will followup EEG. 3. BPH. Continue finasteride. 4. History of alcohol abuse. Patient had not been drinking lately, has been more confused. Serum alcohol is negative. No signs of withdrawal at this time. Patient has lethargy at this time. Was initially offered Serax as needed but has been having waxing and waning mental status. Continue folic acid, multivitamin and thiamine. Monitor for signs of withdrawal. 5. History of hypertension. Continue metoprolol, monitor blood pressure. Address as needed. 6. Petechial rash of bilateral lower extremities and also some on the upper extremities, likely reactive. Will continue to monitor. Followup C-reactive protein, cell counts, and also Benadryl cream. Will monitor. Avoid IV Benadryl or oral Benadryl at this time given patient is lethargic. Will consider steroids if does not improve. 7. Gastroesophageal reflux disease (GERD). Continue proton pump inhibitor (PPI). 8. History of chronic obstructive pulmonary disease (COPD). Nebulizer treatment as needed. Currently patient is not having any wheeze. 9. Hypothyroidism. Continue levothyroxine. 10. Altered mental status. Speech and swallow has put the patient on pureed diet. 11. Deep venous thrombosis (DVT) prophylaxis. Lovenox subcu. Sequential compression device. DISPOSITION: Pending clinical improvement. PFS. Further workup in terms of EEG. Poor overall prognosis. Patient is currently DO NOT RESUSCITATE (DNR)/DO NOT INTUBATE (DNI).
--- NOTE | 2016-12-23 20:15 | REP ---
Chest two views HISTORY: Pneumonia Comparison: 12/18/2016 The lungs are clear. The heart is normal in size. The pulmonary vasculature is normal in appearance. The bony structure is intact. IMPRESSION: No acute disease. Signed by Malcolm Long MD 12/23/2016 02:22 P
[2016-12-24 06:00] VITALS: BP 130/76
[2016-12-24] MEDS: LACTULOSE 20 GM/30 ML SYRUP UD PO SCH ×3 (06:37→20:39)
[2016-12-24] MEDS: LEVOTHYROXINE 0.075 MG TAB (75 MCG) PO SCH (06:37)
[2016-12-24 06:52] LABS: MEAN CORPUSCULAR HEMOGLOBIN 33.7 pg (27.0-33.0); MEAN CORPUSCULAR HGB CONC 33.2 g/dl (32.0-36.5); MEAN CORPUSCULAR VOLUME 101.6 fl (80.0-96.0); RED CELL DISTRIBUTION WIDTH 12.2 % (11.5-14.5); WHITE BLOOD COUNT 7.4 K/mm3 (4.0-10.0)
[2016-12-24 07:03] LABS: INR 0.99
[2016-12-24 07:15] LABS: ALBUMIN 2.4 GM/DL (3.2-5.2); ALBUMIN/GLOBULIN RATIO 0.65 (1.00-1.93); ALKALINE PHOSPHATASE 71 U/L (45-117); ALT/SGPT 50 U/L (12-78); ANION GAP 6 MEQ/L (8-16); AST/SGOT 52 U/L (15-37); BILIRUBIN,DIRECT 0.1 MG/DL (0.0-0.2); BILIRUBIN,TOTAL 0.4 MG/DL (0.2-1.0); BLOOD UREA NITROGEN 17 MG/DL (7-18); CARBON DIOXIDE LEVEL 27 MEQ/L (21-32); CHLORIDE LEVEL 103 MEQ/L (98-107); GLOMERULAR FILTRATION RATE > 60.0 (>42); GLUCOSE, FASTING 88 MG/DL (83-110); MAGNESIUM LEVEL 2.1 MG/DL (1.8-2.4); POTASSIUM SERUM 3.6 MEQ/L (3.5-5.1); SODIUM LEVEL 136 MEQ/L (136-145); TOTAL PROTEIN 6.1 GM/DL (6.4-8.2)
[2016-12-24] MEDS: LIDOCAINE 5% OINT 30 GM TOP SCH ×2 (09:00→20:41)
[2016-12-24] MEDS: ENOXAPARIN 40 MG/0.4 ML SYRINGE (J1650) SC SCH (10:23)
[2016-12-24] MEDS: FOLIC ACID 1 MG TAB PO SCH (10:24)
[2016-12-24] MEDS: NICOTINE 7 MG/24 HR TRANSDERMAL TD SCH (10:24)
[2016-12-24] MEDS: OMEPRAZOLE 20 MG CAP PO SCH (10:24)
[2016-12-24] MEDS: SENOKOT S TAB PO SCH ×2 (10:24→20:39)
[2016-12-24] MEDS: FINASTERIDE 5 MG TAB PO SCH (10:24)
[2016-12-24] MEDS: THIAMINE 100 MG TAB PO SCH (10:24)
[2016-12-24] MEDS: MULTIVITAMINS/MINERALS THERAP 1 TAB PO SCH (10:24)
[2016-12-24] MEDS: ASPIRIN 81 MG ENTERIC TAB PO SCH (10:24)
[2016-12-24] MEDS: METOPROLOL SUCC *XL* 25MG TAB (TopROL *XL*) PO SCH (10:25)
[2016-12-24] MEDS ORDERED: POTASSIUM CHLORIDE 10 MEQ SR TABLET PO ONE (12:15)
[2016-12-24] MEDS: KCL 20MEQ IN D5/0.45NS 1000ML 1,000 ML IV SCH (13:55)
[2016-12-24 16:50] VITALS: BP 94/57
[2016-12-24 16:54] VITALS: BP 110/58
[2016-12-24 20:00] VITALS: BP 132/66
[2016-12-24 20:02] VITALS: BP 106/59
[2016-12-24] MEDS: ALBUTEROL 90 MCG/ACT 8GM HFA INHALER INH PRN (20:39)
[2016-12-24] MEDS: PERCOCET 5MG/325MG TAB PO PRN (20:40)
[2016-12-24] MEDS: diphenhydrAMINE CREAM 30GM TOP PRN (20:41)
[2016-12-24 22:00] VITALS: BP 106/59
[2016-12-25] MEDS: KCL 20MEQ IN D5/0.45NS 1000ML 1,000 ML IV SCH ×2 (02:07→13:52)
[2016-12-25 06:00] VITALS: BP 110/60
[2016-12-25 06:12] LABS: MEAN CORPUSCULAR HEMOGLOBIN 33.1 pg (27.0-33.0); MEAN CORPUSCULAR HGB CONC 32.4 g/dl (32.0-36.5); MEAN CORPUSCULAR VOLUME 102.1 fl (80.0-96.0); RED CELL DISTRIBUTION WIDTH 12.2 % (11.5-14.5); WHITE BLOOD COUNT 8.1 K/mm3 (4.0-10.0)
[2016-12-25] MEDS: PERCOCET 5MG/325MG TAB PO PRN ×3 (06:24→21:32)
[2016-12-25] MEDS: LEVOTHYROXINE 0.075 MG TAB (75 MCG) PO SCH (06:24)
[2016-12-25 06:30] LABS: ANION GAP 3 MEQ/L (8-16); BLOOD UREA NITROGEN 21 MG/DL (7-18); CALCIUM LEVEL 8.2 MG/DL (8.8-10.2); CARBON DIOXIDE LEVEL 29 MEQ/L (21-32); CHLORIDE LEVEL 104 MEQ/L (98-107); CREATININE FOR GFR 0.49 MG/DL (0.70-1.30); GLOMERULAR FILTRATION RATE > 60.0 (>42); GLUCOSE, FASTING 108 MG/DL (83-110); MAGNESIUM LEVEL 2.1 MG/DL (1.8-2.4); POTASSIUM SERUM 4.4 MEQ/L (3.5-5.1); SODIUM LEVEL 136 MEQ/L (136-145)
[2016-12-25] MEDS: LACTULOSE 20 GM/30 ML SYRUP UD PO SCH ×3 (06:31→21:31)
[2016-12-25] MEDS: NICOTINE 7 MG/24 HR TRANSDERMAL TD SCH (10:11)
[2016-12-25] MEDS: ENOXAPARIN 40 MG/0.4 ML SYRINGE (J1650) SC SCH (10:11)
[2016-12-25] MEDS: METOPROLOL SUCC *XL* 25MG TAB (TopROL *XL*) PO SCH (10:12)
[2016-12-25] MEDS: ASPIRIN 81 MG ENTERIC TAB PO SCH (10:12)
[2016-12-25] MEDS: SENOKOT S TAB PO SCH ×2 (10:12→21:31)
[2016-12-25] MEDS: MULTIVITAMINS/MINERALS THERAP 1 TAB PO SCH (10:12)
[2016-12-25] MEDS: THIAMINE 100 MG TAB PO SCH (10:12)
[2016-12-25] MEDS: OMEPRAZOLE 20 MG CAP PO SCH (10:12)
[2016-12-25] MEDS: FOLIC ACID 1 MG TAB PO SCH (10:12)
[2016-12-25] MEDS: FINASTERIDE 5 MG TAB PO SCH (10:12)
[2016-12-25] MEDS: LIDOCAINE 5% OINT 30 GM TOP SCH ×2 (10:13→21:30)
[2016-12-25 14:00] VITALS: BP 118/66
--- NOTE | 2016-12-25 15:05 | IPN ---
DATE: 12/24/2016 SUBJECTIVE: Patient seen and examined. No acute events overnight. Seems to be more awake but still has very poor oral intake as per nursing staff. Denies any chest pain, pressure, discomfort. Denies any fevers or chills. VITAL SIGNS: Temperature 99, pulse 65, respirations 20, blood pressure 110/58, pulse oximetry 93% on room air. LABORATORY DATA: WBC 7.4, hemoglobin and hematocrit 11.6 over 34.9, platelets 252. Chemistry: Sodium 136, potassium 3.6, chloride 103, bicarbonate 27, BUN 17, creatinine 0.5. Ammonia 23. PHYSICAL EXAMINATION: GENERAL: The patient comfortable, alert, follows simple commands but with waxing and waning comprehension. HEENT: Dry mucous membranes. Normocephalic, atraumatic. CARDIAC: Regular rate and rhythm. Normal S1, S2. PULMONARY: Coarse breath sounds bilaterally. ABDOMEN: Soft and nontender. EXTREMITIES: No edema bilateral lower extremities. Withdraws to pain. Patient has petechial rash bilateral lower extremities, seems to be fading away. ASSESSMENT AND PLAN: This is a 76-year-old male patient with underlying medical history of benign prostatic hypertrophy (BPH), dementia, hypothyroidism, hypertension, gastroesophageal reflux disease (GERD), chronic obstructive pulmonary disease (COPD), anxiety, alcohol use and smoking, who was initially brought here with confusion, smoking imaginative cigarette, also with fracture of the right fifth digit metatarsal. 1. Right foot nondisplaced spiral fracture of the metatarsal shaft fifth digit. Orthopedics has been consulted. Recommend weightbearing as tolerated with stiff-sole shoe, physical therapy as tolerated. Walker. Patient and family services (PFS) was consulted. Followup orthopedics as outpatient. Pain regimen as prescribed. 2. Encephalopathy secondary to progression of dementia versus delirium. The patient does not appear infectious. Ammonia level initially elevated. Given lactulose. Currently ammonia level is normal. B12 appreciated. Thyroid stimulating hormone (TSH) appreciated. Psychiatry has been consulted. Patient currently does not have capacity to make decisions regarding medical care or appoint agents to manage his finances. The patient with very waxing and waning mental status. Lactulose as tolerated. Followup liver function appreciated. The patient is afebrile. If patient is febrile, will consider infectious etiology. MRI is appreciated. CT of the head appreciated. We will get electroencephalogram (EEG) for the patient. If patient febrile, will order panculture. 3. Benign prostatic hypertrophy. Continue current medication finasteride. 4. History of alcohol abuse. The patient has not been drinking lately and has been more confused. Serum alcohol is negative. No signs of withdrawal at this time. Patient was not agitated. Comfortable. Serax as needed. Followup for withdrawal. Folic acid, multivitamin, thiamine. 5. History of hypertension. Continue metoprolol. Monitor blood pressure. Adjust medication as needed. 6. Petechial rash bilateral lower extremities. Also some on the upper extremity, likely reactive. Currently improved. Benadryl cream. C-reactive protein appreciated. 7. Gastroesophageal reflux disease. Continue proton pump inhibitor (PPI). 8. History of chronic obstructive pulmonary disease. Nebulizer treatment as needed. Currently the patient is not having any wheeze. 9. Hypothyroidism. Continue levothyroxine. 10. Altered mental status, encephalopathy. Aspiration risk. X-rays appreciated. Patient on puree diet. Speech and swallow evaluation. 11. Failure to thrive. Patient with poor oral intake. Will get calorie count. 12. Deep venous thrombosis (DVT) prophylaxis. Lovenox subcutaneous. Sequential compression devices. DISPOSITION: Pending clinical improvement. PFS consulted. EEG. Patient DO NOT RESUSCITATE/DO NOT INTUBATE (DNR/DNI). Poor overall prognosis given severe deconditioning.
[2016-12-25 21:02] VITALS: BP 114/57
[2016-12-25] MEDS: ALBUTEROL 90 MCG/ACT 8GM HFA INHALER INH PRN (21:30)
[2016-12-25] MEDS: diphenhydrAMINE CREAM 30GM TOP PRN (21:31)
[2016-12-25 22:00] VITALS: BP 114/57
[2016-12-26] MEDS: KCL 20MEQ IN D5/0.45NS 1000ML 1,000 ML IV SCH (03:18)
[2016-12-26] MEDS: PERCOCET 5MG/325MG TAB PO PRN ×2 (04:13→20:47)
[2016-12-26] MEDS: LACTULOSE 20 GM/30 ML SYRUP UD PO SCH ×3 (05:28→20:46)
[2016-12-26] MEDS: LEVOTHYROXINE 0.075 MG TAB (75 MCG) PO SCH (05:29)
[2016-12-26 06:00] VITALS: BP 111/62
[2016-12-26 06:05] LABS: MEAN CORPUSCULAR HEMOGLOBIN 32.9 pg (27.0-33.0); MEAN CORPUSCULAR HGB CONC 31.9 g/dl (32.0-36.5); MEAN CORPUSCULAR VOLUME 102.9 fl (80.0-96.0); RED CELL DISTRIBUTION WIDTH 12.4 % (11.5-14.5); WHITE BLOOD COUNT 6.4 K/mm3 (4.0-10.0)
[2016-12-26 06:23] LABS: ANION GAP 4 MEQ/L (8-16); BLOOD UREA NITROGEN 10 MG/DL (7-18); CALCIUM LEVEL 7.9 MG/DL (8.8-10.2); CARBON DIOXIDE LEVEL 30 MEQ/L (21-32); CHLORIDE LEVEL 101 MEQ/L (98-107); CREATININE FOR GFR 0.58 MG/DL (0.70-1.30); GLOMERULAR FILTRATION RATE > 60.0 (>42); GLUCOSE, FASTING 115 MG/DL (83-110); MAGNESIUM LEVEL 2.2 MG/DL (1.8-2.4); POTASSIUM SERUM 4.5 MEQ/L (3.5-5.1); SODIUM LEVEL 135 MEQ/L (136-145)
[2016-12-26] MEDS: MULTIVITAMINS/MINERALS THERAP 1 TAB PO SCH (08:54)
[2016-12-26] MEDS: ASPIRIN 81 MG ENTERIC TAB PO SCH (08:54)
[2016-12-26] MEDS: THIAMINE 100 MG TAB PO SCH (08:54)
[2016-12-26] MEDS: SENOKOT S TAB PO SCH ×2 (08:54→20:46)
[2016-12-26] MEDS: NICOTINE 7 MG/24 HR TRANSDERMAL TD SCH (08:54)
[2016-12-26] MEDS: ENOXAPARIN 40 MG/0.4 ML SYRINGE (J1650) SC SCH (08:54)
[2016-12-26] MEDS: METOPROLOL SUCC *XL* 25MG TAB (TopROL *XL*) PO SCH (08:54)
[2016-12-26] MEDS: OMEPRAZOLE 20 MG CAP PO SCH (08:54)
[2016-12-26] MEDS: FINASTERIDE 5 MG TAB PO SCH (08:54)
[2016-12-26] MEDS: FOLIC ACID 1 MG TAB PO SCH (08:55)
[2016-12-26] MEDS: LIDOCAINE 5% OINT 30 GM TOP SCH ×2 (08:55→20:46)
--- NOTE | 2016-12-26 12:37 | REP ---
Chest two views HISTORY: Pneumonia Comparison: 12/23/2016 Linear density is present in the left lower lobe consistent with atelectasis or infiltrate. The right lung is clear. The heart is normal in size. The pulmonary vasculature is normal in appearance. The bony structure is intact. IMPRESSION: Left lower lobe atelectasis or infiltrate. Signed by Malcolm Long MD 12/26/2016 12:28 P
[2016-12-26 14:00] VITALS: BP 106/67
[2016-12-26] MEDS: AZITHROMYCIN INJ 500 MG, VIAL MATE ADAPTER 1 EACH in D5W 250 ML IV SCH (14:06)
[2016-12-26] MEDS: CEFEPIME HCL 2 GM in D5W MINI-BAG PLUS 50 ML IV SCH (16:21)
[2016-12-26 20:00] VITALS: BP 119/66
[2016-12-26] MEDS: diphenhydrAMINE CREAM 30GM TOP PRN (20:45)
[2016-12-26] MEDS: ALBUTEROL 90 MCG/ACT 8GM HFA INHALER INH PRN (20:45)
--- NOTE | 2016-12-26 21:26 | IPN ---
DATE: 12/25/2016 Patient arousable. Follows simple commands. Still mildly confused with poor attention spans. Denies any significant pain. VITAL SIGNS: Temperature 99.3, pulse 65, respirations 20, blood pressure 118/66, pulse oximetry 96% on room air. LABORATORY DATA: WBC 8.1, hemoglobin and hematocrit 11.2/34.6, platelets 245. Chemistry: Sodium 136, potassium 4.4, chloride 104, bicarbonate 29, BUN 21, creatinine 0.49. PHYSICAL EXAMINATION: GENERAL: Patient comfortable, alert, follows simple commands with waxing and waning in comprehension. HEENT: Dry mucous membranes. Normocephalic, atraumatic. CARDIAC: Regular rate and rhythm, normal S1, S2. PULMONARY: Coarse breath sounds bilateral, but much improved. ABDOMEN: Soft, nontender. EXTREMITIES: No edema bilateral lower extremities. Withdraws to pain. Petechiae rash bilateral lower extremities has been fading away. ASSESSMENT AND PLAN: This is a 76-year-old male patient with underlying medical history of BPH, dementia, hypothyroidism, hypertension, gastroesophageal reflux disease (GERD), chronic obstructive pulmonary disease (COPD), anxiety, alcohol use and smoking, who was initially brought here with confusion, smoking imaginative cigarette, and also has a fracture of right 5th digit metatarsal. 1. Right foot nondisplaced spiral fracture of 5th metatarsal. Orthopedics has been consulted, recommend weightbearing as tolerated with stiff-soled shoe. Physical therapy as tolerated. Walker. Patient and family services (PFS) consulted. Followup with orthopedics as outpatient. Pain regimen as prescribed. 2. Encephalopathy secondary to progression of dementia versus delirium. The patient does not appear to be infectious. Ammonia level initially elevated, given lactulose, currently ammonia level has been normal. B12 appreciated. Thyroid stimulating hormone (TSH) appreciated. Psychiatry has been consulted. Patient currently does not have capacity to make decisions regarding medical care as well as management of his finances. Patient with very waxing and waning mental status. Lactulose as tolerated. Followup liver function tests appreciated. Patient is afebrile. CT head and MRI is appreciated. Followup EEG. If patient is febrile, will consider infectious workup. 3. BPH. Continue current medication, finasteride. 4. History of alcohol abuse. Patient has not been drinking lately and has been more confused. Serum alcohol negative. No sign of withdrawal. Patient was not agitated. Initially placed on Serax as needed. Currently comfortable. Folic acid, multivitamin, and thiamine. 5. History of hypertension. Continue metoprolol. Monitor blood pressure. Adjust medication as needed. 6. Petechiae rash bilateral lower extremities. Currently improving. Benadryl cream. C-reactive protein appreciated. 7. Altered mental status, encephalopathy. Aspiration risk. Pureed diet. Speech and swallow. 8. Gastroesophageal reflux disease (GERD). Continue proton pump inhibitor (PPI). 9. History of chronic obstructive pulmonary disease (COPD). Nebulizer treatment as needed. Currently patient not having much wheeze. 10. Hypothyroidism. Continue levothyroxine. 11. Failure to thrive per poor oral intake. Will get calorie count. 12. Deep venous thrombosis (DVT) prophylaxis. Lovenox subcutaneous, sequential compression device. DISPOSITION: Pending clinical improvement, patient and family services (PFS), EEG. DO NOT RESUSCITATE/DO NOT INTUBATE. Poor overall prognosis.
--- NOTE | 2016-12-26 21:43 | IPN ---
DATE: 12/26/2016 Patient was febrile overnight with maximum temperature (T-max) of 100.5. Currently this morning is afebrile. Patient's mental status has improved and is tolerating oral, completed 65% of the tray for breakfast. Denies any chest pain, pressure or discomfort. Denies any fever or chills. Reported feeling comfortable. As per nursing staff, the patient did report some shoulder discomfort. VITAL SIGNS: T-max 100.5, current temperature (T-current) 97.6, pulse 63, respirations 19, blood pressure 111/62, pulse oximetry 95% on room air. LABORATORY DATA: WBC 6.4, hemoglobin and hematocrit 10.8/33.7, platelets 242. Chemistry: Sodium 135, potassium 4.5, chloride 101, bicarbonate 30, BUN 10, creatinine 0.58. EEG pending. PHYSICAL EXAMINATION: GENERAL: Patient comfortable, alert, follows simple commands with waxing and waning mental status. HEENT: Dry mucous membranes. Normocephalic, atraumatic. CARDIAC: Regular rate and rhythm, normal S1, S2. PULMONARY: Bilaterally clear to auscultation. Diminished breath sounds bilateral base. ABDOMEN: Soft, nontender. EXTREMITIES: No edema bilateral lower extremities. Able to move all four extremities. ASSESSMENT AND PLAN: This is a 76-year-old male patient with underlying medical history of BPH, dementia, hypothyroidism, hypertension, gastroesophageal reflux disease (GERD), chronic obstructive pulmonary disease (COPD), anxiety, alcohol use and smoking, who was initially brought in here for confusion, smoking imaginative cigarette, also with fracture of right 5th digit metatarsal. 1. Right foot nondisplaced spiral fracture of the 5th metatarsal. Orthopedics have been consulted. Recommend weightbearing as tolerated with a stiff-soled shoe. Physical therapy as tolerated. Patient and family services (PFS) consulted for additional service and possible placement. Orthopedic followup as outpatient. Pain regimen as prescribed. 2. Encephalopathy secondary to progression of dementia versus delirium. The patient does not appear to be infectious, although the patient did spike an episode of fever last night. Followup blood culture, urinalysis, urine culture, chest xrays. Ammonia level initially elevated, given lactulose, currently with normal ammonia level. B12 appreciated. Thyroid stimulating hormone (TSH) is appreciated. Psychiatry consulted. Patient currently does not have capacity to make decisions regarding his finances and his medical care. Patient has very waxing and waning status. Lactulose as tolerated. Liver functions appreciated. CT scan of the head has been appreciated, as well as MRI. Will followup EEG. 3. Fevers, of unknown origin. Followup urinalysis, urine culture, blood culture, chest xray. Unknown source of infection. Patient is currently afebrile without any antibiotics or medical intervention and with no leukocytosis. Will continue to follow. 4. BPH. Continue current medication, finasteride. 5. History of alcohol abuse. Patient has been drinking lately and has been more confused. Serum alcohol is negative. No signs of withdrawal. Continue folic acid, multivitamin, and thiamine. Monitor for withdrawal. 6. History of hypertension. Continue metoprolol. Monitor blood pressure. 7. Petechiae rash bilateral lower extremities, improving. Benadryl cream. 8. Gastroesophageal reflux disease (GERD). Continue proton pump inhibitor (PPI). 9. History of chronic obstructive pulmonary disease (COPD). Nebulizer treatment as needed. Currently not having any wheeze. Xrays appreciated. 10. Hypothyroidism. Continue levothyroxine. 11. Altered mental status, encephalopathy. Aspiration precaution. Pureed diet. Speech and swallow appreciated. 12. Failure to thrive with poor oral intake. 24-hour calorie counts. Encourage completion of 75% of the tray for two meals. 13. Deep venous thrombosis (DVT) prophylaxis. Lovenox subcutaneous, sequential compression device. DISPOSITION: Pending clinical improvement, patient and family services (PFS), EEG, and cultures. Patient is DO NOT RESUSCITATE/DO NOT INTUBATE.
[2016-12-26 22:00] VITALS: BP 112/66
[2016-12-27] MEDS: CEFEPIME HCL 2 GM in D5W MINI-BAG PLUS 50 ML IV SCH ×2 (02:10→15:42)
[2016-12-27] MEDS: LACTULOSE 20 GM/30 ML SYRUP UD PO SCH ×3 (05:06→20:37)
[2016-12-27] MEDS: LEVOTHYROXINE 0.075 MG TAB (75 MCG) PO SCH (05:06)
[2016-12-27 06:00] VITALS: BP 128/68
[2016-12-27 08:19] LABS: ALBUMIN 2.4 GM/DL (3.2-5.2)
[2016-12-27] MEDS: METOPROLOL SUCC *XL* 25MG TAB (TopROL *XL*) PO SCH (08:35)
[2016-12-27] MEDS: SENOKOT S TAB PO SCH ×2 (08:36→20:37)
[2016-12-27] MEDS: FOLIC ACID 1 MG TAB PO SCH (08:36)
[2016-12-27] MEDS: MULTIVITAMINS/MINERALS THERAP 1 TAB PO SCH (08:36)
[2016-12-27] MEDS: FINASTERIDE 5 MG TAB PO SCH (08:36)
[2016-12-27] MEDS: THIAMINE 100 MG TAB PO SCH (08:36)
[2016-12-27] MEDS: OMEPRAZOLE 20 MG CAP PO SCH (08:36)
[2016-12-27] MEDS: ASPIRIN 81 MG ENTERIC TAB PO SCH (08:36)
[2016-12-27] MEDS: LIDOCAINE 5% OINT 30 GM TOP SCH ×2 (08:37→20:37)
[2016-12-27] MEDS: ENOXAPARIN 40 MG/0.4 ML SYRINGE (J1650) SC SCH (08:37)
[2016-12-27] MEDS: NICOTINE 7 MG/24 HR TRANSDERMAL TD SCH (09:12)
[2016-12-27 14:00] VITALS: BP 118/62
[2016-12-27] MEDS: AZITHROMYCIN INJ 500 MG, VIAL MATE ADAPTER 1 EACH in D5W 250 ML IV SCH (14:11)
--- NOTE | 2016-12-27 19:41 | IPN ---
DATE OF SERVICE: 12/27/2016 Patient seen and examined. No acute events overnight but has been still continuing to have visual hallucinations and delirious. Denies any chest pain, pressure, or discomfort; otherwise, history is not reliable. As per nursing staff, patient requires assistance with feeding but has been eating breakfast. VITAL SIGNS: Temperature 99.8, pulse 77, respirations 20, blood pressure 118/62, pulse oximetry 95% on room air. LABORATORY: WBC 6.4, hemoglobin and hematocrit 10.8/33.7, platelets 242. Chemistries: Sodium 135, potassium 4.5, chloride 101, bicarbonate 30, BUN 10, creatinine 0.58. PHYSICAL EXAM: GENERAL: Patient comfortable, alert. Follows simple commands with waxing and waning mental status. HEENT: Dry mucous membranes. Normocephalic, atraumatic. CARDIAC: Regular rate and rhythm. Normal S1, S2. PULMONARY: Bilaterally clear to auscultation. Diminished breath sounds in bilateral base. ABDOMEN: Soft, nontender. EXTREMITIES: No edema bilateral lower extremities. Able to move all four extremities. ASSESSMENT AND PLAN: This is a 76-year-old male patient with underlying medical history of benign prostate hypertrophy (BPH), dementia, hypothyroidism, hypertension, gastroesophageal reflux disease (GERD), chronic obstructive pulmonary disease (COPD), anxiety, alcohol use, and smoking. Patient was initially brought in to the hospital for confusion, smoking imaginative cigarette, and found also to have a right 5th digit metatarsal fracture. PROBLEMS: 1. Right foot nondisplaced spiral fracture of the 5th metatarsal. Orthopedics initially have been consulted. Recommended weightbearing as tolerated with stiff-soled shoes. Physical therapy as tolerated. Patient and family services (PFS) has been consulted. Orthopedic followup as outpatient. Pain regimen as prescribed. 2. Encephalopathy secondary to progression of dementia versus delirium. Patient does not appear to be infectious, although the patient had a spike of fever a couple of nights ago. Blood culture, urinalysis (UA), urine culture have been sent. Chest x-ray is negative. Ammonia level initially elevated given lactulose. Currently with no more ammonia level. B12 appreciated. Thyroid/ thyroid-stimulating hormone (TSH) appreciated. Psychiatry consulted. Patient does not have capacity to make decisions regarding his finances or his medical care at this time. Patient with waxing and waning mental status. Liver function tests appreciated. CT of the head appreciated. MRI appreciated. Followup EEG report. 3. Fever of unknown origin. Patient has not had any subsequent fevers. Followup cultures, x-rays. No known infectious source, but the patient does seem a bit crackly on physical exam during the night the patient is having fevers. Will complete a course of cefepime and azithromycin for possible health care associated pneumonia. 4. BPH. Continue current medication, finasteride. 5. History of alcohol abuse. Patient has not been drinking lately, as per family. Serum alcohol has been negative. No signs of withdrawal. Folic acid, multivitamin, and thiamine. Monitor for withdrawal. 6. History of hypertension. Continue metoprolol. Monitor blood pressure. 7. Petechial rash of bilateral lower extremities, improving. 8. GERD. Continue proton pump inhibitor (PPI). 9. History of COPD. Nebulizer treatment. Currently does not have any wheeze. 10. Hypothyroidism. Continue levothyroxine. 11. Altered mental status, encephalopathy. Aspiration precaution. Pureed diet. Speech and swallow appreciated. 12. Failure to thrive with protein-calorie malnutrition. 24-hour calorie count. Encourage patient to complete 75% of the tray on at least two meals of the day. 13. Deep venous thrombosis (DVT) prophylaxis. Lovenox subcutaneously. Sequential compression device. DISPOSITION PLANNING: Pending EEG final report. Patient possibly will need placement at snf facility. Followup cultures. ADDENDUM: Discussed with patient's son. As of right now, patient is not yet hospice appropriate, but patient's family believes that patient does not want anything aggressive, does not want tube feedings, and would like to be informed if providers believe that patient is appropriate for comfort measures or hospice. Discussed the prospect of further diagnostic procedure, such as lumbar puncture. Patient's family would like to avoid invasive procedure if at all possible. Patient is severely deconditioned with dementia and delirium. Poor overall prognosis. DO NOT RESUSCITATE/DO NOT INTUBATE. Addendum Dictated: ISAÍAS 12/27/2016 [id number] Addendum Transcribed: livan 12/27/2016 [id number]
[2016-12-27 22:00] VITALS: BP 130/89
[2016-12-28] MEDS: CEFEPIME HCL 2 GM in D5W MINI-BAG PLUS 50 ML IV SCH ×2 (03:17→15:32)
[2016-12-28] MEDS: LACTULOSE 20 GM/30 ML SYRUP UD PO SCH ×3 (05:37→21:20)
[2016-12-28] MEDS: LEVOTHYROXINE 0.075 MG TAB (75 MCG) PO SCH (05:37)
[2016-12-28 06:00] VITALS: BP 138/66
[2016-12-28 07:04] LABS: MEAN CORPUSCULAR HEMOGLOBIN 33.3 pg (27.0-33.0); MEAN CORPUSCULAR HGB CONC 32.4 g/dl (32.0-36.5); MEAN CORPUSCULAR VOLUME 102.9 fl (80.0-96.0); RED CELL DISTRIBUTION WIDTH 12.4 % (11.5-14.5); WHITE BLOOD COUNT 8.4 K/mm3 (4.0-10.0)
[2016-12-28 07:21] LABS: ANION GAP 6 MEQ/L (8-16); BLOOD UREA NITROGEN 17 MG/DL (7-18); CALCIUM LEVEL 8.6 MG/DL (8.8-10.2); CARBON DIOXIDE LEVEL 31 MEQ/L (21-32); CHLORIDE LEVEL 98 MEQ/L (98-107); CREATININE FOR GFR 0.63 MG/DL (0.70-1.30); GLOMERULAR FILTRATION RATE > 60.0 (>42); GLUCOSE, FASTING 102 MG/DL (83-110); MAGNESIUM LEVEL 2.3 MG/DL (1.8-2.4); POTASSIUM SERUM 4.3 MEQ/L (3.5-5.1); SODIUM LEVEL 135 MEQ/L (136-145)
--- NOTE | 2016-12-28 08:08 | EEG ---
DATE OF PROCEDURE: 12/28/2016 REFERRING PHYSICIAN: Dr. Herminia Virgen DIAGNOSES: Encephalopathy and altered mental status. EEG NUMBER: [id number] HISTORY: Patient is a 76-year-old man who was admitted at [facility] due to increased confusion and has a history of dementia. This EEG was done to assess degree of encephalopathy and rule out epileptic potential. He is currently on Prilosec, aspirin, thiamine, Percocet. TECHNICAL DESCRIPTION: This digital EEG was recorded by 21 scalp, ear and two EKG electrodes and was reviewed in bipolar and referential montages following reformatting in 10-20 [employer] Electrode Placement System. INTERPRETATION: The patient was noted to be in awake and drowsy states during this EEG. Resting awake background consisted of 6 - 7 Hz theta activity measuring 15 - 40 microvolts in amplitude. Stage II sleep was reviewed and was symmetric bilaterally. Hyperventilation could not be performed. Photic stimulation remained unremarkable. EKG revealed normal sinus rhythm. No focal, lateralizing or epileptiform abnormalities were seen. No clinical or electrographic seizures were recorded. CONCLUSION: This EEG in awake, drowsy states, stage II sleep is abnormal due to presence of mild generalized slowing consistent with nonspecific diffuse cerebral dysfunction such as seen in encephalopathy due to multiple potential causes, including toxic, metabolic, autoimmune, infectious or multifocal structural abnormalities. Clinical correlation is recommended.
[2016-12-28] MEDS: SENOKOT S TAB PO SCH ×2 (08:45→21:20)
[2016-12-28] MEDS: NICOTINE 7 MG/24 HR TRANSDERMAL TD SCH (08:45)
[2016-12-28] MEDS: OMEPRAZOLE 20 MG CAP PO SCH (08:46)
[2016-12-28] MEDS: FINASTERIDE 5 MG TAB PO SCH (08:46)
[2016-12-28] MEDS: MULTIVITAMINS/MINERALS THERAP 1 TAB PO SCH (08:46)
[2016-12-28] MEDS: ASPIRIN 81 MG ENTERIC TAB PO SCH (08:46)
[2016-12-28] MEDS: METOPROLOL SUCC *XL* 25MG TAB (TopROL *XL*) PO SCH (08:47)
[2016-12-28] MEDS: THIAMINE 100 MG TAB PO SCH (08:47)
[2016-12-28] MEDS: FOLIC ACID 1 MG TAB PO SCH (08:47)
[2016-12-28] MEDS: LIDOCAINE 5% OINT 30 GM TOP SCH ×2 (08:48→21:20)
[2016-12-28] MEDS: ENOXAPARIN 40 MG/0.4 ML SYRINGE (J1650) SC SCH (08:48)
--- NOTE | 2016-12-28 11:44 | IPNPDOC ---
Subjective Date Seen The patient was seen on 12/28/16. Subjective Chief Complaint/HPI The patient is a 76-year-old male admitted with a reason for visit of Change In Behavior. Events since last encounter none per nursing staff. EEG was unrevealing Objective Physical Examination General Exam: Positive: No Acute Distress, Negative: Alert (laying comfortably in bed) Eye Exam: Positive: PERRLA (b/l pupils +2 mimimally reactive, unchanged from one day prior), Negative: Sclera icteric, Ptosis ENT Exam: Positive: Atraumatic, Mucous membr. moist/pink Neck Exam: Positive: Supple Chest Exam: Positive: Clear to auscultation, Normal air movement, Negative: Rales, Rhonchi, Wheezing Heart Exam: Positive: Rate Normal, Normal S1, Normal S2, Negative: Murmurs Abdomen Exam: Positive: Normal bowel sounds, Soft, Negative: BS Hyperactive, BS Hypoactive, Tenderness Extremity Exam: Negative: Cyanosis, Edema Assessment /Plan Problems (1) Foot fracture, right Status: Acute Response to Treatment: Stable Problem Text: ortho consulted-appreciate their recommendations c/w weight bearing as tolerated and stiff soled shoe c/w PT PFS cx f/u w/ ortho outpt in 1 week after d/c (2) Altered mental status, unspecified Status: Chronic Response to Treatment: Stable Problem Text: most likely progressive dementia w/u as noted yesterday will need placement (3) Low grade fever Status: Acute Response to Treatment: Stable Problem Text: workup has been negative (4) Right hip pain Status: Acute Response to Treatment: Stable Problem Text: xrays neg for fx (5) HTN (hypertension) Status: Chronic Response to Treatment: Stable Problem Text: stable/controlled (6) Alcohol abuse Status: Chronic Problem Text: resolved as an active problem (7) GERD (gastroesophageal reflux disease) Status: Chronic Response to Treatment: Stable Problem Text: c/w omeprazole (8) COPD (chronic obstructive pulmonary disease) Status: Chronic Response to Treatment: Stable Problem Text: c/w albuterol therapy (9) Hypothyroidism Status: Chronic Response to Treatment: Stable Problem Text: c/w levothyroxine (10) DVT prophylaxis Status: Acute Response to Treatment: Stable Problem Text: SCD TEDS Plan/VTE VTE Prophylaxis Ordered?: Yes VS, I&O, 24H, Fishbone Vital Signs/I&O Vital Signs Date Time Temp Pulse Resp B/P (MAP) Pulse Ox O2 Delivery O2 Flow Rate FiO2 12/28/16 09:00 Room Air 12/28/16 08:47 73 110/76 12/28/16 06:00 99.7 20 93 12/27/16 14:00 0.0 I&O- Last 24 Hours up to 6 AM 12/28/16 06:00 Intake Total 1145 ml Output Total 0 ml Balance 1145 ml Laboratory Data 24H LABS Laboratory Tests 2 12/28/16 06:50: Anion Gap 6L, Glomerular Filtration Rate > 60.0, Blood Urea Nitrogen 17#, Creatinine 0.63L, Sodium Level 135L, Potassium Level 4.3, Chloride Level 98, Carbon Dioxide Level 31, Calcium Level 8.6L, Magnesium Level 2.3 CBC/BMP Laboratory Tests 12/28/16 06:50 Red Blood Count 3.49 L, Mean Corpuscular Volume 102.9 H, Mean Corpuscular Hemoglobin 33.3 H, Mean Corpuscular Hemoglobin Concent 32.4, Red Cell Distribution Width 12.4, Calcium Level 8.6 L Microbiology Microbiology 12/26/16 Blood Culture - Preliminary, Resulted No Growth after 48 hours. All Specime... 12/26/16 Blood Culture - Preliminary, Resulted 12/18/16 Blood Culture - Final, Complete NO GROWTH AFTER 5 DAYS 12/26/16 MRSA Screen - Final, Complete 12/19/16 MRSA Screen - Final, Complete 12/19/16 Respiratory Virus Panel (PCR) (ALISSA) - Final, Complete 12/26/16 Urine Culture - Final, Complete 12/18/16 Urine Culture - Final, Complete Roger Conte MD December 28, 2016 11:44
[2016-12-28] MEDS: AZITHROMYCIN INJ 500 MG, VIAL MATE ADAPTER 1 EACH in D5W 250 ML IV SCH (13:53)
[2016-12-28 14:00] VITALS: BP 127/65
[2016-12-28] MEDS ORDERED: FLEET ENEMA PR PRN (14:45)
[2016-12-28 22:00] VITALS: BP 123/76
[2016-12-29] MEDS: CEFEPIME HCL 2 GM in D5W MINI-BAG PLUS 50 ML IV SCH (03:30)
[2016-12-29 06:00] VITALS: BP 116/61
[2016-12-29] MEDS: LEVOTHYROXINE 0.075 MG TAB (75 MCG) PO SCH (06:14)
[2016-12-29] MEDS: LACTULOSE 20 GM/30 ML SYRUP UD PO SCH ×3 (06:14→21:02)
[2016-12-29] MEDS: FOLIC ACID 1 MG TAB PO SCH (09:29)
[2016-12-29] MEDS: NICOTINE 7 MG/24 HR TRANSDERMAL TD SCH (09:29)
[2016-12-29] MEDS: ASPIRIN 81 MG ENTERIC TAB PO SCH (09:29)
[2016-12-29] MEDS: MULTIVITAMINS/MINERALS THERAP 1 TAB PO SCH (09:29)
[2016-12-29] MEDS: METOPROLOL SUCC *XL* 25MG TAB (TopROL *XL*) PO SCH (09:30)
[2016-12-29] MEDS: OMEPRAZOLE 20 MG CAP PO SCH (09:30)
[2016-12-29] MEDS: ENOXAPARIN 40 MG/0.4 ML SYRINGE (J1650) SC SCH (09:30)
[2016-12-29] MEDS: THIAMINE 100 MG TAB PO SCH (09:30)
[2016-12-29] MEDS: FINASTERIDE 5 MG TAB PO SCH (09:30)
[2016-12-29] MEDS: SENOKOT S TAB PO SCH ×2 (09:30→21:03)
[2016-12-29] MEDS: LIDOCAINE 5% OINT 30 GM TOP SCH ×2 (09:31→21:03)
[2016-12-29 14:00] VITALS: BP 110/58
[2016-12-29] MEDS: AZITHROMYCIN INJ 500 MG, VIAL MATE ADAPTER 1 EACH in D5W 250 ML IV SCH (14:14)
[2016-12-29] MEDS: CEFUROXIME 500 MG TAB PO SCH (21:03)
[2016-12-29] MEDS: ANALGESIC BALM CRM 120 GM TOP PRN (21:04)
[2016-12-29 22:00] VITALS: BP 116/79
[2016-12-30] MEDS: LACTULOSE 20 GM/30 ML SYRUP UD PO SCH ×3 (05:40→22:00)
[2016-12-30] MEDS: LEVOTHYROXINE 0.075 MG TAB (75 MCG) PO SCH (05:40)
[2016-12-30 06:00] VITALS: BP 109/58
[2016-12-30 07:04] LABS: MEAN CORPUSCULAR HEMOGLOBIN 33.2 pg (27.0-33.0); MEAN CORPUSCULAR HGB CONC 33.1 g/dl (32.0-36.5); MEAN CORPUSCULAR VOLUME 100.3 fl (80.0-96.0); RED CELL DISTRIBUTION WIDTH 12.6 % (11.5-14.5)
[2016-12-30 07:25] LABS: ANION GAP 7 MEQ/L (8-16); BLOOD UREA NITROGEN 12 MG/DL (7-18); CALCIUM LEVEL 8.1 MG/DL (8.8-10.2); CARBON DIOXIDE LEVEL 30 MEQ/L (21-32); CHLORIDE LEVEL 98 MEQ/L (98-107); CREATININE FOR GFR 0.49 MG/DL (0.70-1.30); GLOMERULAR FILTRATION RATE > 60.0 (>42); GLUCOSE, FASTING 94 MG/DL (83-110); MAGNESIUM LEVEL 2.3 MG/DL (1.8-2.4); POTASSIUM SERUM 3.9 MEQ/L (3.5-5.1); SODIUM LEVEL 135 MEQ/L (136-145)
[2016-12-30 09:00] VITALS: BP 109/58
[2016-12-30] MEDS: METOPROLOL SUCC *XL* 25MG TAB (TopROL *XL*) PO SCH (09:00)
[2016-12-30] MEDS: SENOKOT S TAB PO SCH ×2 (09:00→20:39)
[2016-12-30] MEDS: MULTIVITAMINS/MINERALS THERAP 1 TAB PO SCH (10:15)
[2016-12-30] MEDS: OMEPRAZOLE 20 MG CAP PO SCH (10:15)
[2016-12-30] MEDS: ASPIRIN 81 MG ENTERIC TAB PO SCH (10:15)
[2016-12-30] MEDS: CEFUROXIME 500 MG TAB PO SCH ×2 (10:15→20:39)
[2016-12-30] MEDS: FINASTERIDE 5 MG TAB PO SCH (10:15)
[2016-12-30] MEDS: THIAMINE 100 MG TAB PO SCH (10:15)
[2016-12-30] MEDS: ENOXAPARIN 40 MG/0.4 ML SYRINGE (J1650) SC SCH (10:16)
[2016-12-30] MEDS: LIDOCAINE 5% OINT 30 GM TOP SCH ×2 (10:16→20:40)
[2016-12-30] MEDS: NICOTINE 7 MG/24 HR TRANSDERMAL TD SCH (10:16)
[2016-12-30] MEDS: FOLIC ACID 1 MG TAB PO SCH (10:17)
[2016-12-30 14:00] VITALS: BP 112/63
[2016-12-30 20:30] VITALS: BP 139/63
[2016-12-30] MEDS: ANALGESIC BALM CRM 120 GM TOP PRN (20:39)
[2016-12-31 05:40] VITALS: BP 140/83
[2016-12-31] MEDS: LEVOTHYROXINE 0.075 MG TAB (75 MCG) PO SCH (05:54)
[2016-12-31] MEDS: LACTULOSE 20 GM/30 ML SYRUP UD PO SCH (05:54)
[2016-12-31] MEDS: METOPROLOL SUCC *XL* 25MG TAB (TopROL *XL*) PO SCH (09:05)
[2016-12-31] MEDS: MULTIVITAMINS/MINERALS THERAP 1 TAB PO SCH (09:05)
[2016-12-31] MEDS: CEFUROXIME 500 MG TAB PO SCH (09:05)
[2016-12-31] MEDS: FINASTERIDE 5 MG TAB PO SCH (09:05)
[2016-12-31] MEDS: ASPIRIN 81 MG ENTERIC TAB PO SCH (09:05)
[2016-12-31] MEDS: OMEPRAZOLE 20 MG CAP PO SCH (09:05)
[2016-12-31] MEDS: THIAMINE 100 MG TAB PO SCH (09:05)
[2016-12-31] MEDS: SENOKOT S TAB PO SCH (09:06)
[2016-12-31] MEDS: ENOXAPARIN 40 MG/0.4 ML SYRINGE (J1650) SC SCH (09:06)
[2016-12-31] MEDS: FOLIC ACID 1 MG TAB PO SCH (09:06)
[2016-12-31] MEDS: LIDOCAINE 5% OINT 30 GM TOP SCH (09:07)
[2016-12-31] MEDS: NICOTINE 7 MG/24 HR TRANSDERMAL TD SCH (09:07)
[2016-12-31] MEDS ORDERED: ACET65TA PO (11:42)
[2016-12-31] MEDS ORDERED: DIPHCR TOP (11:42)
[2016-12-31] MEDS ORDERED: CEFT500T3 PO (11:42)
[2016-12-31] MEDS ORDERED: MUSCCRE9 TOP (11:43)
[2016-12-31] MEDS ORDERED: SENN1TAB2 PO (11:43)
[2016-12-31] MEDS ORDERED: VITMTA PO (11:43)
[2016-12-31] MEDS ORDERED: FOLI1TAB2 PO (11:43)
[2016-12-31] MEDS ORDERED: LACT20EL PO (11:43)
[2016-12-31] MEDS ORDERED: THIA100TA PO (11:43)
[2016-12-31] MEDS ORDERED: NICO7PA TD (11:43)
[2016-12-31] MEDS ORDERED: OMEP20CA3 PO (11:43)
[2016-12-31] MEDS ORDERED: LIDO5OI TOP (11:43)
--- NOTE | 2017-01-07 21:53 | DSES ---
DATE OF ADMISSION: 12/20/2016 DATE OF DISCHARGE: 12/31/2016 ATTENDING PHYSICIAN: Dr. Rain Espino. PRINCIPAL DIAGNOSIS: Altered mental status/metabolic encephalopathy probably due to progressive dementia. SECONDARY DIAGNOSES: 1. Right foot fracture. 2. Hypertension. 3. History of alcohol abuse. 4. Gastroesophageal reflux disease (GERD). 5. Chronic obstructive pulmonary disease (COPD). 6. Hypothyroidism. 7. Right hip pain-negative x-rays. HISTORY: Saleem Jones was admitted to the hospitalist service on 12/18. He had been falling and confused. For details, see history and physical from admission. HOSPITAL COURSE: I picked up the patient while covering for the hospitalist, and only saw the patient one time 12/28, was assessed on that level. After that, details of my encounter are in the 12/28 note. SIGNIFICANT LABORATORIES: Discharge, the most recent white count was 7.1, hemoglobin 10.8, platelets 318. Sodium 135, potassium 3.9, BUN 12, creatinine 0.5, glucose 94. Albumin was low at 2.4. Toxicology was all negative. Blood cultures were just growing contaminant. IMAGING: X-rays showed nondisplaced spiral fracture fifth metatarsal. Other imaging studies were unremarkable. An MRI of the brain done was limited, and shows small vessel disease. Had an EEG done that showed no sign of epilepsy, just background changes. Nonspecific finding. DISPOSITION: Looks like he was discharged on 12/31 to [place]. His medicines on discharge were: - acetaminophen - Ceftin 500 mg twice a day for five more days - folic acid 1 mg daily - lactulose 30 mL every eight hours - lidocaine 5% ointment twice daily - some type of muscle rub he was using four times a day - nicotine patch 7 mg per day daily - omeprazole 20 mg daily - Senna Plus twice a day - thiamine 100 mg daily - folic acid 1 mg daily - albuterol two puffs four times a day as needed - aspirin 81 mg daily - Proscar 5 mg daily - levothyroxine 75 mcg daily - Toprol XL 25 mg daily - Colace 100 mg daily He received his Pneumo-23 on 12/20/2016. His diet is [id number]. Activity as tolerated.
== END 2016-12-31 13:30 | disposition home health service (06) | DRG 72 ==
LOC: M ED 15:14 → M ED INP 19:15 → M MSPAV 19:44 → OBSVTOIN 12-20 11:21 → M MSPAV 12-22 10:30
PROVIDERS: ADMIT Internal Medicine; ATTEND Family Medicine
DX: G93.41 Metabolic encephalopathy (principal); F03.90 Unspecified dementia, unspecified severity, without behavioral disturbance, psychotic disturbance, mood disturbance, and anxiety; K21.9 Gastro-esophageal reflux disease without esophagitis; E03.9 Hypothyroidism, unspecified; J44.9 Chronic obstructive pulmonary disease, unspecified; S92.354A Nondisplaced fracture of fifth metatarsal bone, right foot, initial encounter for closed fracture; F10.20 Alcohol dependence, uncomplicated; F17.200 Nicotine dependence, unspecified, uncomplicated; Z66 Do not resuscitate; N40.0 Benign prostatic hyperplasia without lower urinary tract symptoms; I10 Essential (primary) hypertension; F41.9 Anxiety disorder, unspecified; Z79.899 Other long term (current) drug therapy; R23.3 Spontaneous ecchymoses; R62.7 Adult failure to thrive

== ENCOUNTER → 2017-01-04 | Outpatient (REF) ==
[~2017-01-04] MED LIST changes: +ACET65TA PO; +CEFT500T3 PO; +DIPHCR TOP; +DOCU100C PO; +FOLI1TAB2 PO; +LACT20EL PO; +LIDO5OI TOP; +MUSCCRE9 TOP; +NICO7PA TD; +OMEP20CA3 PO; +SENN1TAB2 PO; +THIA100TA PO; +VITMTA PO
[2017-01-04 12:35] LABS: MEAN CORPUSCULAR HEMOGLOBIN 32.8 pg (27.0-33.0); MEAN CORPUSCULAR HGB CONC 32.4 g/dl (32.0-36.5); MEAN CORPUSCULAR VOLUME 101.5 fl (80.0-96.0); RED CELL DISTRIBUTION WIDTH 12.5 % (11.5-14.5); WHITE BLOOD COUNT 7.9 K/mm3 (4.0-10.0)
[2017-01-04 12:45] LABS: ANION GAP 6 MEQ/L (8-16); BLOOD UREA NITROGEN 10 MG/DL (7-18); CALCIUM LEVEL 8.4 MG/DL (8.8-10.2); CARBON DIOXIDE LEVEL 32 MEQ/L (21-32); CHLORIDE LEVEL 97 MEQ/L (98-107); CREATININE FOR GFR 0.59 MG/DL (0.70-1.30); GLOMERULAR FILTRATION RATE > 60.0 (>42); GLUCOSE, FASTING 81 MG/DL (83-110); SODIUM LEVEL 135 MEQ/L (136-145)
[2017-01-04 12:51] LABS: FOLATE 23.7 NG/ML (>5.4); VITAMIN B12 LEVEL 528 PG/ML (247-911)
== END ==
PROVIDERS: ATTEND Internal Medicine
DX: I10 Essential (primary) hypertension (principal); Z79.899 Other long term (current) drug therapy

== ENCOUNTER → 2017-01-11 | Outpatient (REF) ==
[2017-01-11 11:10] LABS: MEAN CORPUSCULAR HEMOGLOBIN 32.9 pg (27.0-33.0); MEAN CORPUSCULAR HGB CONC 31.9 g/dl (32.0-36.5); MEAN CORPUSCULAR VOLUME 102.9 fl (80.0-96.0); RED CELL DISTRIBUTION WIDTH 12.6 % (11.5-14.5); WHITE BLOOD COUNT 7.3 K/mm3 (4.0-10.0)
[2017-01-11 11:15] LABS: ANION GAP 7 MEQ/L (8-16); BLOOD UREA NITROGEN 13 MG/DL (7-18); CALCIUM LEVEL 8.5 MG/DL (8.8-10.2); CARBON DIOXIDE LEVEL 29 MEQ/L (21-32); CHLORIDE LEVEL 101 MEQ/L (98-107); GLOMERULAR FILTRATION RATE > 60.0 (>42); GLUCOSE, FASTING 122 MG/DL (83-110); POTASSIUM SERUM 4.2 MEQ/L (3.5-5.1); SODIUM LEVEL 137 MEQ/L (136-145)
== END ==
PROVIDERS: ATTEND Internal Medicine
DX: E03.9 Hypothyroidism, unspecified (principal)

== ENCOUNTER → 2017-01-12 | Outpatient (REF) | payer MEDICARE ==
[2017-01-12 14:01] LABS: MEAN CORPUSCULAR HEMOGLOBIN 33.4 pg (27.0-33.0); MEAN CORPUSCULAR HGB CONC 32.7 g/dl (32.0-36.5); MEAN CORPUSCULAR VOLUME 102.3 fl (80.0-96.0); RED CELL DISTRIBUTION WIDTH 12.8 % (11.5-14.5); WHITE BLOOD COUNT 7.9 K/mm3 (4.0-10.0)
[2017-01-12 14:13] LABS: URIC ACID 3.5 MG/DL (3.5-7.2)
--- NOTE | 2017-01-12 16:38 | REP ---
Clinical: Pain and swelling. Technique: AP and oblique views of the right wrist. Findings: Age-related changes including increase sclerosis to the radial surface and associated joint space narrowing noted. No obvious acute fracture dislocation. Impression: Limited incomplete examination demonstrating age-related degenerative change. No obvious acute fracture dislocation. If the patient remains symptomatic consider repeat complete evaluation. Signed by Riccardo Mckeon MD 01/12/2017 04:29 P
== END ==
PROVIDERS: ATTEND Internal Medicine
DX: M25.50 Pain in unspecified joint (principal)

== ENCOUNTER → 2017-01-21 | Outpatient (REF) | PROVIDERS: ATTEND Internal Medicine | DX: E03.9 Hypothyroidism, unspecified (principal) ==

== ENCOUNTER → 2017-01-26 | Outpatient (REF) | PROVIDERS: ATTEND Internal Medicine | DX: J98.11 Atelectasis (principal) ==

== ENCOUNTER → 2017-01-28 | Outpatient (REF) | PROVIDERS: ATTEND Internal Medicine | DX: E03.9 Hypothyroidism, unspecified (principal) ==

== ENCOUNTER → 2017-02-02 | Outpatient (REF) | payer MEDICARE | PROVIDERS: ATTEND Internal Medicine | DX: D75.89 Other specified diseases of blood and blood-forming organs (principal) ==

== ENCOUNTER → 2017-02-02 | Outpatient (REF) | payer MEDICARE ==
[2017-02-02 11:04] LABS: FOLATE 23.1 NG/ML (>5.4)
== END ==
PROVIDERS: ATTEND Internal Medicine
DX: D75.89 Other specified diseases of blood and blood-forming organs (principal)

== ENCOUNTER → 2017-02-08 | Outpatient (REF) | payer MEDICARE ==
[2017-02-08 14:08] LABS: MEAN CORPUSCULAR HEMOGLOBIN 32.7 pg (27.0-33.0); MEAN CORPUSCULAR HGB CONC 32.3 g/dl (32.0-36.5); MEAN CORPUSCULAR VOLUME 101.1 fl (80.0-96.0); RED CELL DISTRIBUTION WIDTH 12.9 % (11.5-14.5); WHITE BLOOD COUNT 4.8 K/mm3 (4.0-10.0)
[2017-02-08 14:21] LABS: ANION GAP 7 MEQ/L (8-16); BLOOD UREA NITROGEN 13 MG/DL (7-18); CALCIUM LEVEL 8.2 MG/DL (8.8-10.2); CARBON DIOXIDE LEVEL 28 MEQ/L (21-32); CHLORIDE LEVEL 95 MEQ/L (98-107); CREATININE FOR GFR 0.53 MG/DL (0.70-1.30); GLOMERULAR FILTRATION RATE > 60.0 (>42); GLUCOSE, FASTING 124 MG/DL (83-110); POTASSIUM SERUM 3.9 MEQ/L (3.5-5.1); SODIUM LEVEL 130 MEQ/L (136-145)
--- NOTE | 2017-02-08 17:41 | REP ---
PORTABLE CHEST, ONE VIEW: HISTORY: Cough. COMPARISON: 01/14/2017. A linear density is present in the left lower lobe consistent with scar. The right lung is clear. The heart is normal in size. The pulmonary vasculature is normal in appearance. IMPRESSION: Left lower lobe scar. Signed by Malcolm Long MD 02/09/2017 08:14 A
== END ==
PROVIDERS: ATTEND Internal Medicine
DX: R05 Cough (principal); R06.2 Wheezing

== ENCOUNTER → 2017-02-09 | Outpatient (REF) | payer MEDICARE ==
[2017-02-09 15:23] LABS: MEAN CORPUSCULAR HGB CONC 31.5 g/dl (32.0-36.5); MEAN CORPUSCULAR VOLUME 101.4 fl (80.0-96.0); WHITE BLOOD COUNT 5.4 K/mm3 (4.0-10.0)
[2017-02-09 16:08] LABS: ANION GAP 7 MEQ/L (8-16); BLOOD UREA NITROGEN 14 MG/DL (7-18); CALCIUM LEVEL 8.3 MG/DL (8.8-10.2); CARBON DIOXIDE LEVEL 29 MEQ/L (21-32); CHLORIDE LEVEL 98 MEQ/L (98-107); CREATININE FOR GFR 0.57 MG/DL (0.70-1.30); GLOMERULAR FILTRATION RATE > 60.0 (>42); GLUCOSE, FASTING 130 MG/DL (83-110); POTASSIUM SERUM 3.9 MEQ/L (3.5-5.1); SODIUM LEVEL 134 MEQ/L (136-145)
== END ==
PROVIDERS: ATTEND Internal Medicine
DX: E87.1 Hypo-osmolality and hyponatremia (principal)

== ENCOUNTER → 2017-02-15 | Outpatient (REF) | payer MEDICARE ==
[2017-02-15 11:07] LABS: MEAN CORPUSCULAR HEMOGLOBIN 32.1 pg (27.0-33.0); MEAN CORPUSCULAR HGB CONC 31.6 g/dl (32.0-36.5); MEAN CORPUSCULAR VOLUME 101.3 fl (80.0-96.0); RED CELL DISTRIBUTION WIDTH 13.3 % (11.5-14.5); WHITE BLOOD COUNT 5.6 K/mm3 (4.0-10.0)
[2017-02-15 11:36] LABS: ANION GAP 7 MEQ/L (8-16); BLOOD UREA NITROGEN 14 MG/DL (7-18); CALCIUM LEVEL 8.2 MG/DL (8.8-10.2); CARBON DIOXIDE LEVEL 27 MEQ/L (21-32); CHLORIDE LEVEL 103 MEQ/L (98-107); CREATININE FOR GFR 0.57 MG/DL (0.70-1.30); GLOMERULAR FILTRATION RATE > 60.0 (>42); GLUCOSE, FASTING 160 MG/DL (83-110); POTASSIUM SERUM 4.2 MEQ/L (3.5-5.1); SODIUM LEVEL 137 MEQ/L (136-145)
== END ==
PROVIDERS: ATTEND Internal Medicine
DX: E03.9 Hypothyroidism, unspecified (principal); D64.9 Anemia, unspecified

== ENCOUNTER 2017-07-28 09:58 | Day surgery (SDC) | payer MEDICARE ==
[~2017-07-28] VITALS: Ht 172.7 cm; Wt 68.4 kg
[~2017-07-28 09:58] MED LIST changes: -ACET65TA PO; +ASPI1TAB15 PO; -ASPI81TA7 PO; -DOCU100C PO; +DOCU100C16 PO; -DOCU250C PO; +DOCU250C7 PO; +DULC10SU2 PR; -FOLI1TAB2 PO; +FOLI1TAB4 PO; +LACT10SO3 PO; -LACT20EL PO; +LEVO88TA3 PO; -LIDO5OI TOP; +LIDO5OIN28 TOP; +MAPA325T3 PO; +METO1TAB32 PO; -METO25TA74 PO; +MILKSUS PO; +MUSC1CRE TOP; -MUSCCRE9 TOP; +OFLOXACIN 0.3 % (OCUFLOX) OPTH SOL 5ML OS ONE; +PHENYLEPHRINE 2.5% OPHTH SOL 2ML OS ONE; -PROA1AER INH; +PROAAER10 INH; +PROPARACAINE 0.5% OPHTH SOL 15ML OS ONE; +TROPICAMIDE 1% OPHTH SOLN 2ML OS ONE
[2017-07-28] MEDS ORDERED: MIDAZOLAM INJ 2 MG/2 ML VIAL (J2250) As Ordered ONE (12:49)
[2017-07-28] MEDS ORDERED: fentaNYL 100 MCG/2 ML INJECTION (J3010) As Ordered ONE (12:50)
[2017-07-28] MEDS ORDERED: LIDOCAINE 0.75%/EPINEPHRINE 0.025% IN BSS 1ML SYR INTRACAMERAL (OR ONLY) As Ordered ONE (13:20)
[2017-07-28] MEDS ORDERED: ACETYLCHOLINE OPHTH SOLN 1% 2ML (MIOCHOL-E) As Ordered ONE (13:20)
[2017-07-28] MEDS ORDERED: DUOVISC (0.50ML VISCOAT/0.55ML PROVISC) OPHTH KIT As Ordered ONE ×2 (13:20→13:27)
[2017-07-28] MEDS ORDERED: POVIDONE-IODINE 5% OPHTH PREP SOL 30ML As Ordered ONE (13:20)
[2017-07-28] MEDS ORDERED: BALANCED SALT IRRIGATION SOLUTION 500ML BAG (FOR OR EYE MACHINE) As Ordered ONE (13:20)
[2017-07-28] MEDS ORDERED: CEFUROXIME 1MG/0.1ML INTRACAMERAL INJ As Ordered ONE (13:20)
[2017-07-28 14:30] VITALS: BP 135/66
--- NOTE | 2017-07-29 13:10 | RO ---
DATE OF PROCEDURE: 07/28/2017 PREOPERATIVE DIAGNOSIS: Visually significant nuclear sclerotic cataract left eye. POSTOPERATIVE DIAGNOSIS: Visually significant nuclear sclerotic cataract left eye. PROCEDURE: Cataract extraction with use of phacoemulsification and placement of intraocular lens, AU00T0, 20.5, left eye. SURGEON: Peterson Cuevas DO STEAMER OPERATOR: ANESTHESIA: Local with monitored anesthesia care (MAC). COMPLICATIONS: None. POSTOPERATIVE CONDITION: Stable. INDICATION FOR SURGERY: Blurred vision left eye affecting patient's activities of daily living. DESCRIPTION OF PROCEDURE: The patient was seen in the preoperative area and properly identified. The correct operative eye was identified and marked. Attention was turned to that eye. The patient received topical antibiotics in the preoperative area. The patient then received topical dilating drops consisting of tropicamide and phenylephrine. The patient was then transferred to the operating room. The correct side was re-identified. The patient received topical anesthetics and antibiotics on the surface of the eye. The eye was prepped and draped in a sterile fashion. The upper and lower eyelids were isolated with Tegaderm tape, and the lids were held open with an adjustable speculum. Using a sideport blade, a paracentesis incision was made. Intraocular preservative-free lidocaine was then injected into the anterior chamber. Viscoelastic was then injected into the anterior chamber through the paracentesis. Using a 2.65 mm sharp-tipped keratome, the anterior chamber was entered via a temporal clear corneal incision. A continuous curvilinear capsulorrhexis was created with the aid of a 26-gauge cystotome and Utrata forceps. Hydrodissection was performed with balanced salt solution (BSS) on a blunt cannula until the nucleus was freely mobile. The crystalline lens was phacoemulsified and aspirated. Additional cohesive viscoelastic was placed into the capsular bag to deepen it. A AU00T0, 20.5 lens was placed into the capsular bag and confirmed by visualizing the continuous curvilinear capsulorrhexis. Additional irrigation and aspiration was used to remove cortical material and remaining viscoelastic. The clear corneal incision was hydrated with BSS on a blunt cannula. The lens was well positioned. The incisions were then tested for leaks and found to be negative. The eye was then palpated for appropriate pressure and adjusted accordingly with BSS. The eyelid speculum was carefully removed. TobraDex ointment was placed in the eye. An eye patch and shield were then secured over the eye. The patient tolerated the procedure well and was discharged to the recovery unit in a stable condition.
== END 2017-07-28 14:39 | disposition home or self-care (01) ==
LOC: M SDC 09:58
PROVIDERS: ATTEND Ophthalmology
DX: H25.12 Age-related nuclear cataract, left eye (principal); I10 Essential (primary) hypertension; E03.9 Hypothyroidism, unspecified; K21.9 Gastro-esophageal reflux disease without esophagitis; F41.9 Anxiety disorder, unspecified; F03.90 Unspecified dementia, unspecified severity, without behavioral disturbance, psychotic disturbance, mood disturbance, and anxiety; J44.9 Chronic obstructive pulmonary disease, unspecified; Z79.82 Long term (current) use of aspirin; Z79.899 Other long term (current) drug therapy; Z79.51 Long term (current) use of inhaled steroids
CPT/HCPCS: 66984; J2250; J3010; V2632

== ENCOUNTER → 2017-08-01 | Outpatient (REF) | payer MEDICARE ==
[~2017-08-01] MED LIST changes: -OFLOXACIN 0.3 % (OCUFLOX) OPTH SOL 5ML OS ONE; -PHENYLEPHRINE 2.5% OPHTH SOL 2ML OS ONE; -PROPARACAINE 0.5% OPHTH SOL 15ML OS ONE; -TROPICAMIDE 1% OPHTH SOLN 2ML OS ONE
[2017-08-01 18:08] LABS: MEAN CORPUSCULAR HEMOGLOBIN 32.7 pg (27.0-33.0); MEAN CORPUSCULAR HGB CONC 32.1 g/dl (32.0-36.5); PLATELET COUNT, AUTOMATED 231 10^3/uL (150-450); RED CELL DISTRIBUTION WIDTH 15.4 % (11.5-14.5); WHITE BLOOD COUNT 5.6 10^3/uL (4.0-10.0)
[2017-08-01 18:48] LABS: ANION GAP 5 MEQ/L (8-16); BLOOD UREA NITROGEN 18 MG/DL (7-18); CALCIUM LEVEL 8.7 MG/DL (8.8-10.2); CARBON DIOXIDE LEVEL 34 MEQ/L (21-32); CHLORIDE LEVEL 102 MEQ/L (98-107); CREATININE FOR GFR 0.67 MG/DL (0.70-1.30); GLOMERULAR FILTRATION RATE > 60.0 (>42); GLUCOSE, FASTING 112 MG/DL (83-110); POTASSIUM SERUM 4.1 MEQ/L (3.5-5.1); SODIUM LEVEL 141 MEQ/L (136-145); URIC ACID 4.8 MG/DL (3.5-7.2)
== END ==
PROVIDERS: ATTEND Internal Medicine
DX: E87.5 Hyperkalemia (principal); D64.9 Anemia, unspecified

== ENCOUNTER → 2017-08-12 | Outpatient (REF) ==
[2017-08-12 14:11] LABS: MEAN CORPUSCULAR HEMOGLOBIN 32.9 pg (27.0-33.0); MEAN CORPUSCULAR HGB CONC 32.3 g/dl (32.0-36.5); MEAN CORPUSCULAR VOLUME 101.7 fl (80.0-96.0); PLATELET COUNT, AUTOMATED 215 10^3/uL (150-450); RED CELL DISTRIBUTION WIDTH 15.2 % (11.5-14.5)
[2017-08-12 14:26] LABS: ANION GAP 9 MEQ/L (8-16); BLOOD UREA NITROGEN 15 MG/DL (7-18); CALCIUM LEVEL 8.4 MG/DL (8.8-10.2); CARBON DIOXIDE LEVEL 27 MEQ/L (21-32); CHLORIDE LEVEL 102 MEQ/L (98-107); CREATININE FOR GFR 0.63 MG/DL (0.70-1.30); GLOMERULAR FILTRATION RATE > 60.0 (>42); GLUCOSE, FASTING 113 MG/DL (83-110); POTASSIUM SERUM 3.8 MEQ/L (3.5-5.1); SODIUM LEVEL 138 MEQ/L (136-145)
--- NOTE | 2017-08-12 15:26 | REP ---
CHEST: AP view of the chest is performed. COMPARISON: 02/08/2017 Bibasilar fibrotic change appears stable. No new infiltrates are seen. Heart is normal in size. There is calcification and tortuosity of the thoracic aorta. Mediastinal silhouette is unchanged. IMPRESSION: Stable chronic findings without evidence of acute infiltrate. Signed by Gaurang Dudley MD 08/12/2017 05:01 P
== END ==
PROVIDERS: ATTEND Internal Medicine
DX: R05 Cough (principal); R06.2 Wheezing

== ENCOUNTER → 2017-08-16 | Outpatient (REF) ==
[2017-08-16 10:31] LABS: MEAN CORPUSCULAR HEMOGLOBIN 33.1 pg (27.0-33.0); MEAN CORPUSCULAR HGB CONC 32.9 g/dl (32.0-36.5); MEAN CORPUSCULAR VOLUME 100.8 fl (80.0-96.0); PLATELET COUNT, AUTOMATED 248 10^3/uL (150-450); RED CELL DISTRIBUTION WIDTH 15.2 % (11.5-14.5); WHITE BLOOD COUNT 7.9 10^3/uL (4.0-10.0)
[2017-08-16 11:03] LABS: ANION GAP 8 MEQ/L (8-16); BLOOD UREA NITROGEN 16 MG/DL (7-18); CALCIUM LEVEL 8.4 MG/DL (8.8-10.2); CARBON DIOXIDE LEVEL 30 MEQ/L (21-32); CHLORIDE LEVEL 103 MEQ/L (98-107); CREATININE FOR GFR 0.61 MG/DL (0.70-1.30); GLOMERULAR FILTRATION RATE > 60.0 (>42); GLUCOSE, FASTING 78 MG/DL (83-110); POTASSIUM SERUM 3.9 MEQ/L (3.5-5.1); SODIUM LEVEL 141 MEQ/L (136-145)
== END ==
PROVIDERS: ATTEND Internal Medicine
DX: E87.0 Hyperosmolality and hypernatremia (principal)

== ENCOUNTER → 2017-09-13 | Outpatient (REF) | DX: E03.9 Hypothyroidism, unspecified (principal) ==

== ENCOUNTER → 2018-02-14 | Outpatient (REF) ==
[2018-02-14 11:32] LABS: HEMOGLOBIN 13.4 g/dl (13.5-17.5); MEAN CORPUSCULAR HEMOGLOBIN 34.3 pg (27.0-33.0); MEAN CORPUSCULAR HGB CONC 32.7 g/dl (32.0-36.5); MEAN CORPUSCULAR VOLUME 104.9 fl (80.0-96.0); PLATELET COUNT, AUTOMATED 235 10^3/uL (150-450); RED BLOOD COUNT 3.91 10^6/uL (4.30-6.10); RED CELL DISTRIBUTION WIDTH 13.8 % (11.5-14.5); WHITE BLOOD COUNT 6.4 10^3/uL (4.0-10.0)
[2018-02-14 17:22] LABS: ANION GAP 8 MEQ/L (8-16); BLOOD UREA NITROGEN 17 MG/DL (7-18); CALCIUM LEVEL 8.3 MG/DL (8.8-10.2); CARBON DIOXIDE LEVEL 31 MEQ/L (21-32); CHLORIDE LEVEL 103 MEQ/L (98-107); CREATININE FOR GFR 0.65 MG/DL (0.70-1.30); GLOMERULAR FILTRATION RATE > 60.0 (>42); GLUCOSE, FASTING 89 MG/DL (70-100); SODIUM LEVEL 142 MEQ/L (136-145)
== END ==
DX: E03.9 Hypothyroidism, unspecified (principal)

== ENCOUNTER → 2018-03-14 | Outpatient (REF) | DX: R06.02 Shortness of breath (principal); R05 Cough ==

== ENCOUNTER → 2018-03-15 | Outpatient (REF) ==
[2018-03-15 10:36] LABS: HEMATOCRIT 37.5 % (42.0-52.0); HEMOGLOBIN 12.4 g/dl (13.5-17.5); MEAN CORPUSCULAR HEMOGLOBIN 35.1 pg (27.0-33.0); MEAN CORPUSCULAR HGB CONC 33.1 g/dl (32.0-36.5); MEAN CORPUSCULAR VOLUME 106.2 fl (80.0-96.0); PLATELET COUNT, AUTOMATED 180 10^3/uL (150-450); RED BLOOD COUNT 3.53 10^6/uL (4.30-6.10); RED CELL DISTRIBUTION WIDTH 14.1 % (11.5-14.5); WHITE BLOOD COUNT 9.5 10^3/uL (4.0-10.0)
[2018-03-15 10:54] LABS: ANION GAP 4 MEQ/L (8-16); BLOOD UREA NITROGEN 18 MG/DL (7-18); CALCIUM LEVEL 8.4 MG/DL (8.8-10.2); CARBON DIOXIDE LEVEL 31 MEQ/L (21-32); CHLORIDE LEVEL 105 MEQ/L (98-107); CREATININE FOR GFR 0.62 MG/DL (0.70-1.30); GLOMERULAR FILTRATION RATE > 60.0 (>42); GLUCOSE, FASTING 135 MG/DL (70-100); POTASSIUM SERUM 3.7 MEQ/L (3.5-5.1); SODIUM LEVEL 140 MEQ/L (136-145)
== END ==
DX: R05 Cough (principal)

== ENCOUNTER → 2018-03-17 | Outpatient (REF) ==
[2018-03-17 10:05] LABS: ANION GAP 11 MEQ/L (8-16); BLOOD UREA NITROGEN 22 MG/DL (7-18); CALCIUM LEVEL 8.6 MG/DL (8.8-10.2); CARBON DIOXIDE LEVEL 28 MEQ/L (21-32); CHLORIDE LEVEL 106 MEQ/L (98-107); CREATININE FOR GFR 0.76 MG/DL (0.70-1.30); GLOMERULAR FILTRATION RATE > 60.0 (>42); GLUCOSE, FASTING 137 MG/DL (70-100); POTASSIUM SERUM 3.6 MEQ/L (3.5-5.1); SODIUM LEVEL 145 MEQ/L (136-145)
== END ==
DX: J18.9 Pneumonia, unspecified organism (principal)

== ENCOUNTER → 2018-04-25 | Outpatient (REF) ==
[2018-04-25 20:12] LABS: HEMATOCRIT 38.1 % (42.0-52.0); HEMOGLOBIN 12.3 g/dl (13.5-17.5); MEAN CORPUSCULAR HEMOGLOBIN 34.5 pg (27.0-33.0); MEAN CORPUSCULAR HGB CONC 32.3 g/dl (32.0-36.5); MEAN CORPUSCULAR VOLUME 106.7 fl (80.0-96.0); PLATELET COUNT, AUTOMATED 196 10^3/uL (150-450); RED BLOOD COUNT 3.57 10^6/uL (4.30-6.10); RED CELL DISTRIBUTION WIDTH 14.8 % (11.5-14.5)
[2018-04-25 20:32] LABS: ANION GAP 11 MEQ/L (8-16); BLOOD UREA NITROGEN 19 MG/DL (7-18); CALCIUM LEVEL 8.4 MG/DL (8.8-10.2); CARBON DIOXIDE LEVEL 28 MEQ/L (21-32); CHLORIDE LEVEL 102 MEQ/L (98-107); CREATININE FOR GFR 0.75 MG/DL (0.70-1.30); GLOMERULAR FILTRATION RATE > 60.0 (>42); GLUCOSE, FASTING 118 MG/DL (70-100); POTASSIUM SERUM 4.3 MEQ/L (3.5-5.1); SODIUM LEVEL 141 MEQ/L (136-145)
== END ==
DX: J18.9 Pneumonia, unspecified organism (principal); R05 Cough

== ENCOUNTER → 2018-05-02 | Outpatient (REF) ==
[2018-05-02 11:09] LABS: HEMATOCRIT 38.7 % (42.0-52.0); HEMOGLOBIN 12.6 g/dl (13.5-17.5); MEAN CORPUSCULAR HEMOGLOBIN 34.6 pg (27.0-33.0); MEAN CORPUSCULAR HGB CONC 32.6 g/dl (32.0-36.5); MEAN CORPUSCULAR VOLUME 106.3 fl (80.0-96.0); PLATELET COUNT, AUTOMATED 263 10^3/uL (150-450); RED BLOOD COUNT 3.64 10^6/uL (4.30-6.10); RED CELL DISTRIBUTION WIDTH 14.3 % (11.5-14.5); WHITE BLOOD COUNT 5.7 10^3/uL (4.0-10.0)
[2018-05-02 12:12] LABS: ANION GAP 7 MEQ/L (8-16); BLOOD UREA NITROGEN 11 MG/DL (7-18); CALCIUM LEVEL 8.7 MG/DL (8.8-10.2); CARBON DIOXIDE LEVEL 30 MEQ/L (21-32); CHLORIDE LEVEL 104 MEQ/L (98-107); CREATININE FOR GFR 0.73 MG/DL (0.70-1.30); GLOMERULAR FILTRATION RATE > 60.0 (>42); GLUCOSE, FASTING 150 MG/DL (70-100); POTASSIUM SERUM 4.1 MEQ/L (3.5-5.1); SODIUM LEVEL 141 MEQ/L (136-145)
== END ==
DX: R53.1 Weakness (principal)

== ENCOUNTER → 2018-07-24 | Outpatient (REF) | DX: R05 Cough (principal) ==

== ENCOUNTER 2018-07-25 11:56 | Inpatient (IN) | payer MEDICARE ==
[2018-07-25 13:08] LABS: BASO % 0.3 % (0.0-1.0); EOS # 0.2 10^3/uL (0.0-0.50); EOS % 2.7 % (0.0-3.0); HEMATOCRIT 42.7 % (42.0-52.0); HEMOGLOBIN 13.9 g/dl (13.5-17.5); IMMATURE GRANULOCYTE % 0.2 % (0-3.0); LYMPH # 0.9 10^3/uL (1.5-4.5); LYMPH % 14.2 % (24.0-44.0); MEAN CORPUSCULAR HEMOGLOBIN 34.1 pg (27.0-33.0); MEAN CORPUSCULAR HGB CONC 32.6 g/dl (32.0-36.5); MEAN CORPUSCULAR VOLUME 104.7 fl (80.0-96.0); MONO # 0.5 10^3/uL (0.0-0.8); MONO % 7.8 % (0.0-5.0); NEUTROPHILS # 4.7 10^3/uL (1.8-7.7); NEUTROPHILS % 74.8 % (36.0-66.0); PLATELET COUNT, AUTOMATED 193 10^3/uL (150-450); RED BLOOD COUNT 4.08 10^6/uL (4.30-6.10); RED CELL DISTRIBUTION WIDTH 13.1 % (11.5-14.5); WHITE BLOOD COUNT 6.3 10^3/uL (4.0-10.0)
[2018-07-25 13:19] LABS: INR 0.96; PROTHROMBIN TIME 12.9 SECONDS (12.1-14.4)
[2018-07-25 13:20] LABS: PARTIAL THROMBOPLASTIN TIME 31.9 SECONDS (25.4-37.6)
[2018-07-25 13:48] LABS: ALBUMIN 3.4 GM/DL (3.2-5.2); ALBUMIN/GLOBULIN RATIO 0.89 (1.00-1.93); ALKALINE PHOSPHATASE 70 U/L (45-117); ALT/SGPT 33 U/L (12-78); ANION GAP 4 MEQ/L (8-16); AST/SGOT 17 U/L (7-37); BILIRUBIN,DIRECT 0.2 MG/DL (0.0-0.2); BILIRUBIN,TOTAL 0.5 MG/DL (0.2-1.0); BLOOD UREA NITROGEN 23 MG/DL (7-18); CALCIUM LEVEL 8.5 MG/DL (8.8-10.2); CARBON DIOXIDE LEVEL 32 MEQ/L (21-32); CHLORIDE LEVEL 108 MEQ/L (98-107); CPK CREATINE PHOSPHOKINASE 85 U/L (39-308); CREATININE FOR GFR 0.66 MG/DL (0.70-1.30); GLOMERULAR FILTRATION RATE > 60.0 (>42); GLUCOSE, FASTING 90 MG/DL (70-100); LIPASE 73 U/L (73-393); MB/CK RELATIVE INDEX 2.82 (< OR =4); POTASSIUM SERUM 3.8 MEQ/L (3.5-5.1); SODIUM LEVEL 144 MEQ/L (136-145); THYROID STIMULATING HORMONE 0.535 uIU/ML (0.358-3.740); TOTAL PROTEIN 7.2 GM/DL (6.4-8.2); TROPONIN I < 0.02 NG/ML (< 0.10)
[2018-07-25] MEDS: OLANZapine ORAL DISINTEGRATING TAB 5MG PO (15:18)
[2018-07-25] MEDS: NS 1,000 ML IV (16:44)
[2018-07-25] MEDS ORDERED: E-Z-HD 98% w/w 340GM SUSP BTL As Ordered (17:09)
[2018-07-25] MEDS ORDERED: E-Z-PAQUE 96% w/w SUSP 176GM BTL As Ordered (17:09)
[2018-07-25] MEDS: ALBUTEROL SULFATE 2.5 MG/0.5 ML INH NEB SOLN INH ×2 (21:00→21:19)
[2018-07-25] MEDS: HEPARIN SOD (PORCINE) 5000 UNITS/ML VIAL SC (22:00)
[2018-07-26] MEDS: NS 1,000 ML IV ×3 (02:29→20:46)
[2018-07-26] MEDS: HEPARIN SOD (PORCINE) 5000 UNITS/ML VIAL SC ×3 (05:30→20:46)
[2018-07-26] MEDS: ALBUTEROL SULFATE 2.5 MG/0.5 ML INH NEB SOLN INH ×5 (06:54→21:02)
[2018-07-26] MEDS ORDERED: E-Z-PAQUE 96% w/w SUSP 176GM BTL As Ordered (09:26)
[2018-07-26 10:39] LABS: HEMATOCRIT 41.3 % (42.0-52.0); HEMOGLOBIN 13.4 g/dl (13.5-17.5); MEAN CORPUSCULAR HEMOGLOBIN 34.1 pg (27.0-33.0); MEAN CORPUSCULAR HGB CONC 32.4 g/dl (32.0-36.5); MEAN CORPUSCULAR VOLUME 105.1 fl (80.0-96.0); PLATELET COUNT, AUTOMATED 180 10^3/uL (150-450); RED BLOOD COUNT 3.93 10^6/uL (4.30-6.10)
[2018-07-26] MEDS: LEVOTHYROXINE 100 MCG (0.1MG) VIAL IV (11:02)
[2018-07-26 11:08] LABS: ANION GAP 7 MEQ/L (8-16); BLOOD UREA NITROGEN 28 MG/DL (7-18); CALCIUM LEVEL 8.8 MG/DL (8.8-10.2); CARBON DIOXIDE LEVEL 29 MEQ/L (21-32); CHLORIDE LEVEL 108 MEQ/L (98-107); CREATININE FOR GFR 0.64 MG/DL (0.70-1.30); GLOMERULAR FILTRATION RATE > 60.0 (>42); GLUCOSE, FASTING 82 MG/DL (70-100); POTASSIUM SERUM 3.8 MEQ/L (3.5-5.1); SODIUM LEVEL 144 MEQ/L (136-145)
[2018-07-26] MEDS: LORazepam 2 MG/ML VIAL (J2060) IV (13:12)
[2018-07-26] MEDS ORDERED: HALOPERIDOL 1 MG TAB PO (13:15)
[2018-07-26] MEDS: HALOPERIDOL 5 MG/ML VIAL (J1630) IV (13:15)
[2018-07-26] MEDS: diphenhydrAMINE INJ 50MG/ML VIAL (J1200) IV (13:28)
[2018-07-26 18:24] LABS: ANION GAP 8 MEQ/L (8-16); BLOOD UREA NITROGEN 28 MG/DL (7-18); CALCIUM LEVEL 8.5 MG/DL (8.8-10.2); CARBON DIOXIDE LEVEL 22 MEQ/L (21-32); CHLORIDE LEVEL 111 MEQ/L (98-107); CREATININE FOR GFR 0.57 MG/DL (0.70-1.30); GLOMERULAR FILTRATION RATE > 60.0 (>42); GLUCOSE, FASTING 79 MG/DL (70-100); POTASSIUM SERUM 3.7 MEQ/L (3.5-5.1); SODIUM LEVEL 141 MEQ/L (136-145)
[2018-07-27] MEDS: HEPARIN SOD (PORCINE) 5000 UNITS/ML VIAL SC ×3 (05:24→20:29)
[2018-07-27] MEDS: NS 1,000 ML IV ×3 (06:41→23:54)
[2018-07-27 06:52] LABS: HEMATOCRIT 37.7 % (42.0-52.0); HEMOGLOBIN 12.3 g/dl (13.5-17.5); MEAN CORPUSCULAR HEMOGLOBIN 33.6 pg (27.0-33.0); MEAN CORPUSCULAR HGB CONC 32.6 g/dl (32.0-36.5); PLATELET COUNT, AUTOMATED 171 10^3/uL (150-450); RED BLOOD COUNT 3.66 10^6/uL (4.30-6.10); RED CELL DISTRIBUTION WIDTH 12.9 % (11.5-14.5); WHITE BLOOD COUNT 4.7 10^3/uL (4.0-10.0)
[2018-07-27] MEDS: ALBUTEROL SULFATE 2.5 MG/0.5 ML INH NEB SOLN INH ×4 (07:33→21:00)
[2018-07-27 07:36] LABS: ANION GAP 8 MEQ/L (8-16); BLOOD UREA NITROGEN 24 MG/DL (7-18); CALCIUM LEVEL 8.2 MG/DL (8.8-10.2); CARBON DIOXIDE LEVEL 25 MEQ/L (21-32); CHLORIDE LEVEL 111 MEQ/L (98-107); CREATININE FOR GFR 0.54 MG/DL (0.70-1.30); GLOMERULAR FILTRATION RATE > 60.0 (>42); GLUCOSE, FASTING 76 MG/DL (70-100); POTASSIUM SERUM 3.6 MEQ/L (3.5-5.1); SODIUM LEVEL 144 MEQ/L (136-145)
[2018-07-27] MEDS: LEVOTHYROXINE 100 MCG (0.1MG) VIAL IV (09:45)
[2018-07-27] MEDS: LORazepam 2 MG/ML VIAL (J2060) IV (20:30)
[2018-07-28] MEDS: LORazepam 2 MG/ML VIAL (J2060) IV ×2 (02:46→07:42)
[2018-07-28] MEDS: HEPARIN SOD (PORCINE) 5000 UNITS/ML VIAL SC ×3 (05:09→21:12)
[2018-07-28 06:29] LABS: HEMATOCRIT 37.9 % (42.0-52.0); MEAN CORPUSCULAR HEMOGLOBIN 33.4 pg (27.0-33.0); MEAN CORPUSCULAR HGB CONC 31.7 g/dl (32.0-36.5); MEAN CORPUSCULAR VOLUME 105.6 fl (80.0-96.0); PLATELET COUNT, AUTOMATED 156 10^3/uL (150-450); RED BLOOD COUNT 3.59 10^6/uL (4.30-6.10); RED CELL DISTRIBUTION WIDTH 12.9 % (11.5-14.5); WHITE BLOOD COUNT 4.6 10^3/uL (4.0-10.0)
[2018-07-28] MEDS: ALBUTEROL SULFATE 2.5 MG/0.5 ML INH NEB SOLN INH ×4 (07:43→21:00)
[2018-07-28] MEDS: LEVALBUTEROL 1.25 MG/0.5 ML CONCENTRATE NEB NEB ×2 (08:00→08:05)
[2018-07-28] MEDS ORDERED: FUROSEMIDE 100 MG/10 ML VIAL (J1940) As Ordered (08:09)
[2018-07-28] MEDS ORDERED: methylPREDNISolone INJ 125 MG/2 ML VIAL (J2930) As Ordered (08:11)
[2018-07-28] MEDS: FUROSEMIDE 100 MG/10 ML VIAL (J1940) IV (08:15)
[2018-07-28] MEDS: methylPREDNISolone INJ 125 MG/2 ML VIAL (J2930) IV ×3 (08:15→17:38)
[2018-07-28 08:40] LABS: ABG BASE EXCESS -6.3 (-2.0-2.0); ABG HCO3 18.6 MEQ/L (22.0-26.0); ABG O2 SATURATION 99.7 % (95.0-99.0); ABG PARTIAL PRESSURE CO2 34.9 mmHg (35.0-45.0); ABG PARTIAL PRESSURE O2 250.4 mmHg (75.0-100.0); ABG STANDARD HCO3 19.4 MEQ/L (22.0-26.0); ABG TOTAL CO2 19.6 MEQ/L (23.0-31.0); ABG pH (ARTERIAL) 7.344 UNITS (7.350-7.450)
[2018-07-28 09:25] LABS: CPK CREATINE PHOSPHOKINASE 259 U/L (39-308); MB/CK RELATIVE INDEX 3.09 (< OR =4); TROPONIN I 0.02 NG/ML (< 0.10)
[2018-07-28] MEDS: LEVOTHYROXINE 100 MCG (0.1MG) VIAL IV (10:12)
[2018-07-28] MEDS ORDERED: SLF 3 ML SYR IV (12:45)
[2018-07-28] MEDS: SLF 3 ML SYR IV ×2 (14:30→21:12)
[2018-07-28] MEDS: HALOPERIDOL 5 MG/ML VIAL (J1630) IV ×2 (14:50→21:11)
[2018-07-28 17:34] LABS: BEDSIDE GLUCOSE 143 MG/DL (83-110)
[2018-07-28] MEDS: HumaLOG INSULIN (NovoLOG) PER UNIT SC (17:37)
[2018-07-28] MEDS: FAT EMULSION IV 20% 500 ML IV (17:38)
[2018-07-28] MEDS: AMINO AC/ELECTROLYTE/DEX/CALC 1,000 ML IV (17:38)
[2018-07-29 00:32] LABS: BEDSIDE GLUCOSE 151 MG/DL (83-110)
[2018-07-29] MEDS: HumaLOG INSULIN (NovoLOG) PER UNIT SC ×4 (00:43→18:58)
[2018-07-29] MEDS: methylPREDNISolone INJ 125 MG/2 ML VIAL (J2930) IV ×5 (00:43→23:17)
[2018-07-29 04:39] LABS: HEMATOCRIT 36.7 % (42.0-52.0); HEMOGLOBIN 12.2 g/dl (13.5-17.5); MEAN CORPUSCULAR HEMOGLOBIN 34.5 pg (27.0-33.0); MEAN CORPUSCULAR HGB CONC 33.2 g/dl (32.0-36.5); MEAN CORPUSCULAR VOLUME 103.7 fl (80.0-96.0); PLATELET COUNT, AUTOMATED 153 10^3/uL (150-450); RED BLOOD COUNT 3.54 10^6/uL (4.30-6.10); WHITE BLOOD COUNT 12.1 10^3/uL (4.0-10.0)
[2018-07-29] MEDS: SLF 3 ML SYR IV ×3 (05:06→23:18)
[2018-07-29] MEDS: HALOPERIDOL 5 MG/ML VIAL (J1630) IV ×3 (05:06→14:58)
[2018-07-29] MEDS: HEPARIN SOD (PORCINE) 5000 UNITS/ML VIAL SC ×3 (05:07→23:17)
[2018-07-29 05:08] LABS: BEDSIDE GLUCOSE 135 MG/DL (83-110)
[2018-07-29] MEDS: ALBUTEROL SULFATE 2.5 MG/0.5 ML INH NEB SOLN INH ×3 (08:17→15:50)
[2018-07-29] MEDS: LEVOTHYROXINE 100 MCG (0.1MG) VIAL IV (09:12)
[2018-07-29 12:06] LABS: BEDSIDE GLUCOSE 161 MG/DL (83-110)
[2018-07-29] MEDS: FAT EMULSION IV 20% 500 ML IV (18:21)
[2018-07-29] MEDS: AMINO AC/ELECTROLYTE/DEX/CALC 1,000 ML IV (18:22)
[2018-07-29 18:37] LABS: BEDSIDE GLUCOSE 144 MG/DL (83-110)
[2018-07-30 00:22] LABS: BEDSIDE GLUCOSE 157 MG/DL (83-110)
[2018-07-30] MEDS: HumaLOG INSULIN (NovoLOG) PER UNIT SC ×4 (00:36→18:52)
[2018-07-30] MEDS: ALBUTEROL SULFATE 2.5 MG/0.5 ML INH NEB SOLN INH ×5 (00:48→21:46)
[2018-07-30 05:41] LABS: HEMATOCRIT 39.4 % (42.0-52.0); HEMOGLOBIN 12.8 g/dl (13.5-17.5); MEAN CORPUSCULAR HEMOGLOBIN 33.6 pg (27.0-33.0); MEAN CORPUSCULAR HGB CONC 32.5 g/dl (32.0-36.5); MEAN CORPUSCULAR VOLUME 103.4 fl (80.0-96.0); PLATELET COUNT, AUTOMATED 171 10^3/uL (150-450); RED BLOOD COUNT 3.81 10^6/uL (4.30-6.10); RED CELL DISTRIBUTION WIDTH 13.3 % (11.5-14.5); WHITE BLOOD COUNT 17.2 10^3/uL (4.0-10.0)
[2018-07-30 05:56] LABS: ANION GAP 7 MEQ/L (8-16); BLOOD UREA NITROGEN 36 MG/DL (7-18); CALCIUM LEVEL 8.8 MG/DL (8.8-10.2); CARBON DIOXIDE LEVEL 28 MEQ/L (21-32); CHLORIDE LEVEL 110 MEQ/L (98-107); CREATININE FOR GFR 0.72 MG/DL (0.70-1.30); GLOMERULAR FILTRATION RATE > 60.0 (>42); GLUCOSE, FASTING 161 MG/DL (70-100); POTASSIUM SERUM 3.2 MEQ/L (3.5-5.1); SODIUM LEVEL 145 MEQ/L (136-145)
[2018-07-30] MEDS: HEPARIN SOD (PORCINE) 5000 UNITS/ML VIAL SC ×3 (06:08→21:40)
[2018-07-30] MEDS: methylPREDNISolone INJ 125 MG/2 ML VIAL (J2930) IV ×3 (06:08→18:52)
[2018-07-30] MEDS: SLF 3 ML SYR IV ×3 (06:09→21:40)
[2018-07-30] MEDS: LEVOTHYROXINE 100 MCG (0.1MG) VIAL IV (09:17)
[2018-07-30] MEDS: HALOPERIDOL 5 MG/ML VIAL (J1630) IV ×2 (09:18→22:41)
[2018-07-30 11:32] LABS: BEDSIDE GLUCOSE 134 MG/DL (83-110)
[2018-07-30 16:32] LABS: BEDSIDE GLUCOSE 140 MG/DL (83-110)
[2018-07-30] MEDS: CALC IV (18:52)
[2018-07-30] MEDS: ELECTROLYTE IV (18:52)
[2018-07-30] MEDS: FAT EMULSION IV 20% 500 ML IV (18:52)
[2018-07-30] MEDS: POTASSIUM CHLORIDE IV (18:52)
[2018-07-30] MEDS: AMINO AC IV (18:52)
[2018-07-30] MEDS: DEX IV (18:52)
[2018-07-31] MEDS: methylPREDNISolone INJ 125 MG/2 ML VIAL (J2930) IV ×2 (00:01→06:25)
[2018-07-31] MEDS: HumaLOG INSULIN (NovoLOG) PER UNIT SC ×3 (00:01→11:45)
[2018-07-31] MEDS: NYSTATIN 100,000 UNITS/GM TOPICAL PWD 15 GM TOP (00:01)
[2018-07-31 00:10] LABS: BEDSIDE GLUCOSE 139 MG/DL (83-110)
[2018-07-31 06:00] LABS: HEMATOCRIT 36.1 % (42.0-52.0); MEAN CORPUSCULAR HEMOGLOBIN 33.7 pg (27.0-33.0); MEAN CORPUSCULAR HGB CONC 33.2 g/dl (32.0-36.5); MEAN CORPUSCULAR VOLUME 101.4 fl (80.0-96.0); PLATELET COUNT, AUTOMATED 162 10^3/uL (150-450); RED BLOOD COUNT 3.56 10^6/uL (4.30-6.10); RED CELL DISTRIBUTION WIDTH 13.8 % (11.5-14.5); WHITE BLOOD COUNT 12.2 10^3/uL (4.0-10.0)
[2018-07-31 06:17] LABS: ANION GAP 6 MEQ/L (8-16); BLOOD UREA NITROGEN 39 MG/DL (7-18); CALCIUM LEVEL 8.2 MG/DL (8.8-10.2); CARBON DIOXIDE LEVEL 29 MEQ/L (21-32); CHLORIDE LEVEL 112 MEQ/L (98-107); CREATININE FOR GFR 0.64 MG/DL (0.70-1.30); GLOMERULAR FILTRATION RATE > 60.0 (>42); GLUCOSE, FASTING 151 MG/DL (70-100); POTASSIUM SERUM 3.8 MEQ/L (3.5-5.1); SODIUM LEVEL 147 MEQ/L (136-145)
[2018-07-31 06:20] LABS: BEDSIDE GLUCOSE 140 MG/DL (83-110)
[2018-07-31] MEDS: HEPARIN SOD (PORCINE) 5000 UNITS/ML VIAL SC ×3 (06:25→22:02)
[2018-07-31] MEDS: SLF 3 ML SYR IV ×3 (06:26→22:02)
[2018-07-31] MEDS: ALBUTEROL SULFATE 2.5 MG/0.5 ML INH NEB SOLN INH ×4 (08:53→20:44)
[2018-07-31] MEDS: LEVOTHYROXINE 100 MCG (0.1MG) VIAL IV (09:14)
[2018-07-31] MEDS: D5W/0.2% SODIUM CHLORIDE 1,000 ML IV (09:19)
[2018-07-31 11:23] LABS: BEDSIDE GLUCOSE 132 MG/DL (83-110)
[2018-07-31] MEDS: methylPREDNISolone INJ 40 MG/1 ML VIAL (J2920) IV (17:38)
[2018-07-31 18:33] LABS: ANION GAP 4 MEQ/L (8-16); BLOOD UREA NITROGEN 41 MG/DL (7-18); CALCIUM LEVEL 8.4 MG/DL (8.8-10.2); CARBON DIOXIDE LEVEL 30 MEQ/L (21-32); CHLORIDE LEVEL 112 MEQ/L (98-107); CREATININE FOR GFR 0.68 MG/DL (0.70-1.30); GLOMERULAR FILTRATION RATE > 60.0 (>42); GLUCOSE, FASTING 138 MG/DL (70-100); POTASSIUM SERUM 3.9 MEQ/L (3.5-5.1); SODIUM LEVEL 146 MEQ/L (136-145)
[2018-07-31] MEDS: HALOPERIDOL 5 MG/ML VIAL (J1630) IV (19:50)
[2018-07-31 23:58] LABS: BEDSIDE GLUCOSE 136 MG/DL (83-110)
[2018-08-01 00:38] LABS: ANION GAP 4 MEQ/L (8-16); BLOOD UREA NITROGEN 37 MG/DL (7-18); CALCIUM LEVEL 8.4 MG/DL (8.8-10.2); CARBON DIOXIDE LEVEL 31 MEQ/L (21-32); CHLORIDE LEVEL 111 MEQ/L (98-107); GLOMERULAR FILTRATION RATE > 60.0 (>42); GLUCOSE, FASTING 142 MG/DL (70-100); POTASSIUM SERUM 3.9 MEQ/L (3.5-5.1); SODIUM LEVEL 146 MEQ/L (136-145)
[2018-08-01] MEDS: HALOPERIDOL 5 MG/ML VIAL (J1630) IV (02:40)
[2018-08-01] MEDS: D5W/0.2% SODIUM CHLORIDE 1,000 ML IV (03:34)
[2018-08-01] MEDS: methylPREDNISolone INJ 40 MG/1 ML VIAL (J2920) IV ×2 (05:23→18:34)
[2018-08-01] MEDS: HEPARIN SOD (PORCINE) 5000 UNITS/ML VIAL SC ×3 (05:24→20:53)
[2018-08-01] MEDS: SLF 3 ML SYR IV ×3 (05:24→20:54)
[2018-08-01 06:32] LABS: HEMATOCRIT 38.9 % (42.0-52.0); HEMOGLOBIN 12.6 g/dl (13.5-17.5); MEAN CORPUSCULAR HEMOGLOBIN 33.2 pg (27.0-33.0); MEAN CORPUSCULAR HGB CONC 32.4 g/dl (32.0-36.5); MEAN CORPUSCULAR VOLUME 102.4 fl (80.0-96.0); PLATELET COUNT, AUTOMATED 152 10^3/uL (150-450); RED CELL DISTRIBUTION WIDTH 13.9 % (11.5-14.5); WHITE BLOOD COUNT 11.2 10^3/uL (4.0-10.0)
[2018-08-01 06:58] LABS: ANION GAP 5 MEQ/L (8-16); BLOOD UREA NITROGEN 36 MG/DL (7-18); CALCIUM LEVEL 8.4 MG/DL (8.8-10.2); CARBON DIOXIDE LEVEL 30 MEQ/L (21-32); CHLORIDE LEVEL 111 MEQ/L (98-107); GLOMERULAR FILTRATION RATE > 60.0 (>42); GLUCOSE, FASTING 109 MG/DL (70-100); POTASSIUM SERUM 3.7 MEQ/L (3.5-5.1); SODIUM LEVEL 146 MEQ/L (136-145)
[2018-08-01] MEDS: ALBUTEROL SULFATE 2.5 MG/0.5 ML INH NEB SOLN INH ×4 (08:10→22:46)
[2018-08-01] MEDS: LEVOTHYROXINE 100 MCG (0.1MG) VIAL IV (08:46)
[2018-08-01] MEDS ORDERED: LIDOCAINE 2% INJ 100 MG/5 ML SDV (FOR ANES.) As Ordered (09:38)
[2018-08-01] MEDS ORDERED: PROPOFOL 200 MG/20 ML VIAL As Ordered (09:38)
[2018-08-01 11:33] LABS: BEDSIDE GLUCOSE 129 MG/DL (83-110)
[2018-08-01 18:00] LABS: BEDSIDE GLUCOSE 111 MG/DL (83-110)
[2018-08-01 23:51] LABS: BEDSIDE GLUCOSE 130 MG/DL (83-110)
[2018-08-02] MEDS: HEPARIN SOD (PORCINE) 5000 UNITS/ML VIAL SC ×3 (05:46→22:48)
[2018-08-02] MEDS: methylPREDNISolone INJ 40 MG/1 ML VIAL (J2920) IV ×2 (05:47→17:22)
[2018-08-02] MEDS: SLF 3 ML SYR IV ×3 (05:47→22:48)
[2018-08-02 06:30] LABS: BEDSIDE GLUCOSE 108 MG/DL (83-110)
[2018-08-02] MEDS: ALBUTEROL SULFATE 2.5 MG/0.5 ML INH NEB SOLN INH ×4 (08:32→21:37)
[2018-08-02] MEDS: LEVOTHYROXINE 100 MCG (0.1MG) VIAL IV (09:00)
[2018-08-02 11:51] LABS: BEDSIDE GLUCOSE 108 MG/DL (83-110)
[2018-08-03] MEDS: HALOPERIDOL 5 MG/ML VIAL (J1630) IV (02:34)
[2018-08-03] MEDS: SLF 3 ML SYR IV ×3 (06:28→21:07)
[2018-08-03] MEDS: HEPARIN SOD (PORCINE) 5000 UNITS/ML VIAL SC ×3 (06:29→21:07)
[2018-08-03] MEDS: methylPREDNISolone INJ 40 MG/1 ML VIAL (J2920) IV ×2 (06:29→17:11)
[2018-08-03] MEDS: ALBUTEROL SULFATE 2.5 MG/0.5 ML INH NEB SOLN INH ×4 (07:20→21:00)
[2018-08-03 07:25] LABS: BASO % 0.2 % (0.0-1.0); EOS % 0.1 % (0.0-3.0); HEMATOCRIT 43.7 % (42.0-52.0); HEMOGLOBIN 14.2 g/dl (13.5-17.5); IMMATURE GRANULOCYTE % 1.7 % (0-3.0); LYMPH % 7.5 % (24.0-44.0); MEAN CORPUSCULAR HEMOGLOBIN 33.8 pg (27.0-33.0); MEAN CORPUSCULAR HGB CONC 32.5 g/dl (32.0-36.5); MONO # 0.9 10^3/uL (0.0-0.8); MONO % 6.5 % (0.0-5.0); NEUTROPHILS # 11.5 10^3/uL (1.8-7.7); PLATELET COUNT, AUTOMATED 155 10^3/uL (150-450); RED CELL DISTRIBUTION WIDTH 13.9 % (11.5-14.5); WHITE BLOOD COUNT 13.7 10^3/uL (4.0-10.0)
[2018-08-03 07:44] LABS: ANION GAP 6 MEQ/L (8-16); BLOOD UREA NITROGEN 32 MG/DL (7-18); CALCIUM LEVEL 8.5 MG/DL (8.8-10.2); CARBON DIOXIDE LEVEL 29 MEQ/L (21-32); CHLORIDE LEVEL 110 MEQ/L (98-107); CREATININE FOR GFR 0.58 MG/DL (0.70-1.30); GLOMERULAR FILTRATION RATE > 60.0 (>42); GLUCOSE, FASTING 94 MG/DL (70-100); POTASSIUM SERUM 3.7 MEQ/L (3.5-5.1); SODIUM LEVEL 145 MEQ/L (136-145)
[2018-08-03] MEDS: LEVOTHYROXINE 100 MCG (0.1MG) VIAL IV (08:40)
[2018-08-03] MEDS: diphenhydrAMINE INJ 50MG/ML VIAL (J1200) IV (19:07)
[2018-08-03] MEDS: ALBUTEROL SULFATE 2.5 MG/0.5 ML INH NEB SOLN NEB (21:28)
[2018-08-03] MEDS: MOXIFLOXACIN HCL 400 MG in APPROPRIATE DILUENT 1 EA IV (21:56)
[2018-08-04] MEDS: methylPREDNISolone INJ 40 MG/1 ML VIAL (J2920) IV ×2 (05:11→17:12)
[2018-08-04] MEDS: HEPARIN SOD (PORCINE) 5000 UNITS/ML VIAL SC ×3 (05:11→21:23)
[2018-08-04] MEDS: SLF 3 ML SYR IV ×3 (05:11→21:23)
[2018-08-04 06:26] LABS: BASO % 0.3 % (0.0-1.0); HEMATOCRIT 39.7 % (42.0-52.0); IMMATURE GRANULOCYTE % 1.6 % (0-3.0); LYMPH % 6.3 % (24.0-44.0); MEAN CORPUSCULAR HGB CONC 32.7 g/dl (32.0-36.5); MEAN CORPUSCULAR VOLUME 103.9 fl (80.0-96.0); MONO # 1.3 10^3/uL (0.0-0.8); MONO % 8.4 % (0.0-5.0); NEUTROPHILS # 12.7 10^3/uL (1.8-7.7); NEUTROPHILS % 83.4 % (36.0-66.0); PLATELET COUNT, AUTOMATED 156 10^3/uL (150-450); RED BLOOD COUNT 3.82 10^6/uL (4.30-6.10); RED CELL DISTRIBUTION WIDTH 14.3 % (11.5-14.5); WHITE BLOOD COUNT 15.2 10^3/uL (4.0-10.0)
[2018-08-04 06:49] LABS: ANION GAP 6 MEQ/L (8-16); BLOOD UREA NITROGEN 28 MG/DL (7-18); CALCIUM LEVEL 8.1 MG/DL (8.8-10.2); CARBON DIOXIDE LEVEL 30 MEQ/L (21-32); CHLORIDE LEVEL 108 MEQ/L (98-107); CREATININE FOR GFR 0.67 MG/DL (0.70-1.30); GLOMERULAR FILTRATION RATE > 60.0 (>42); GLUCOSE, FASTING 105 MG/DL (70-100); POTASSIUM SERUM 3.7 MEQ/L (3.5-5.1); SODIUM LEVEL 144 MEQ/L (136-145)
[2018-08-04] MEDS: ALBUTEROL SULFATE 2.5 MG/0.5 ML INH NEB SOLN INH ×4 (07:22→21:26)
[2018-08-04] MEDS: LEVOTHYROXINE 100 MCG (0.1MG) VIAL IV (08:10)
[2018-08-04] MEDS: HALOPERIDOL 5 MG/ML VIAL (J1630) IV (18:49)
[2018-08-04] MEDS: MOXIFLOXACIN HCL 400 MG in APPROPRIATE DILUENT 1 EA IV (21:23)
[2018-08-05 05:45] LABS: BASO % 0.2 % (0.0-1.0); HEMATOCRIT 34.3 % (42.0-52.0); HEMOGLOBIN 11.2 g/dl (13.5-17.5); IMMATURE GRANULOCYTE % 2.5 % (0-3.0); LYMPH # 0.7 10^3/uL (1.5-4.5); MEAN CORPUSCULAR HEMOGLOBIN 33.3 pg (27.0-33.0); MEAN CORPUSCULAR HGB CONC 32.7 g/dl (32.0-36.5); MEAN CORPUSCULAR VOLUME 102.1 fl (80.0-96.0); MONO # 0.8 10^3/uL (0.0-0.8); MONO % 7.8 % (0.0-5.0); NEUTROPHILS # 8.7 10^3/uL (1.8-7.7); NEUTROPHILS % 82.5 % (36.0-66.0); PLATELET COUNT, AUTOMATED 156 10^3/uL (150-450); RED BLOOD COUNT 3.36 10^6/uL (4.30-6.10); RED CELL DISTRIBUTION WIDTH 14.3 % (11.5-14.5); WHITE BLOOD COUNT 10.5 10^3/uL (4.0-10.0)
[2018-08-05] MEDS: methylPREDNISolone INJ 40 MG/1 ML VIAL (J2920) IV (05:51)
[2018-08-05] MEDS: SLF 3 ML SYR IV ×3 (05:51→22:06)
[2018-08-05] MEDS: HEPARIN SOD (PORCINE) 5000 UNITS/ML VIAL SC ×3 (05:51→22:06)
[2018-08-05 06:04] LABS: ANION GAP 6 MEQ/L (8-16); BLOOD UREA NITROGEN 34 MG/DL (7-18); C REACTIVE PROTEIN QUANTITATIV 9.77 MG/DL (0.00-0.30); CALCIUM LEVEL 8.4 MG/DL (8.8-10.2); CARBON DIOXIDE LEVEL 30 MEQ/L (21-32); CHLORIDE LEVEL 111 MEQ/L (98-107); CREATININE FOR GFR 0.58 MG/DL (0.70-1.30); GLOMERULAR FILTRATION RATE > 60.0 (>42); GLUCOSE, FASTING 109 MG/DL (70-100); POTASSIUM SERUM 3.8 MEQ/L (3.5-5.1); SODIUM LEVEL 147 MEQ/L (136-145)
[2018-08-05] MEDS: ALBUTEROL SULFATE 2.5 MG/0.5 ML INH NEB SOLN INH ×5 (09:15→20:28)
[2018-08-05] MEDS: LEVOTHYROXINE 100MCG TABLET (0.1MG) PO (10:34)
[2018-08-05] MEDS: MOXIFLOXACIN HCL 400 MG in APPROPRIATE DILUENT 1 EA IV (22:05)
[2018-08-05] MEDS: HALOPERIDOL 5 MG/ML VIAL (J1630) IV (22:05)
[2018-08-06 05:34] LABS: BASO % 0.5 % (0.0-1.0); EOS % 0.2 % (0.0-3.0); HEMATOCRIT 35.7 % (42.0-52.0); HEMOGLOBIN 11.6 g/dl (13.5-17.5); IMMATURE GRANULOCYTE % 2.4 % (0-3.0); LYMPH # 1.1 10^3/uL (1.5-4.5); LYMPH % 12.7 % (24.0-44.0); MEAN CORPUSCULAR HEMOGLOBIN 33.8 pg (27.0-33.0); MEAN CORPUSCULAR HGB CONC 32.5 g/dl (32.0-36.5); MEAN CORPUSCULAR VOLUME 104.1 fl (80.0-96.0); MONO # 0.7 10^3/uL (0.0-0.8); MONO % 7.8 % (0.0-5.0); NEUTROPHILS # 6.8 10^3/uL (1.8-7.7); NEUTROPHILS % 76.4 % (36.0-66.0); PLATELET COUNT, AUTOMATED 163 10^3/uL (150-450); RED BLOOD COUNT 3.43 10^6/uL (4.30-6.10); RED CELL DISTRIBUTION WIDTH 14.2 % (11.5-14.5); WHITE BLOOD COUNT 8.9 10^3/uL (4.0-10.0)
[2018-08-06] MEDS: HEPARIN SOD (PORCINE) 5000 UNITS/ML VIAL SC ×3 (05:43→21:38)
[2018-08-06] MEDS: LEVOTHYROXINE 100MCG TABLET (0.1MG) PO (05:43)
[2018-08-06] MEDS: SLF 3 ML SYR IV ×3 (05:43→21:39)
[2018-08-06 05:51] LABS: ANION GAP 5 MEQ/L (8-16); BLOOD UREA NITROGEN 29 MG/DL (7-18); C REACTIVE PROTEIN QUANTITATIV 4.81 MG/DL (0.00-0.30); CARBON DIOXIDE LEVEL 29 MEQ/L (21-32); CHLORIDE LEVEL 109 MEQ/L (98-107); CREATININE FOR GFR 0.53 MG/DL (0.70-1.30); GLOMERULAR FILTRATION RATE > 60.0 (>42); GLUCOSE, FASTING 94 MG/DL (70-100); POTASSIUM SERUM 3.4 MEQ/L (3.5-5.1); SODIUM LEVEL 143 MEQ/L (136-145)
[2018-08-06] MEDS: ALBUTEROL SULFATE 2.5 MG/0.5 ML INH NEB SOLN INH ×3 (07:40→19:33)
[2018-08-06] MEDS: methylPREDNISolone INJ 40 MG/1 ML VIAL (J2920) IV (10:34)
[2018-08-06] MEDS: MOXIFLOXACIN HCL 400 MG in APPROPRIATE DILUENT 1 EA IV (21:39)
[2018-08-06] MEDS: HALOPERIDOL 5 MG/ML VIAL (J1630) IV (21:45)
[2018-08-07] MEDS: HEPARIN SOD (PORCINE) 5000 UNITS/ML VIAL SC (05:45)
[2018-08-07] MEDS: LEVOTHYROXINE 100MCG TABLET (0.1MG) PO (05:45)
[2018-08-07] MEDS: SLF 3 ML SYR IV (05:46)
[2018-08-07 05:56] LABS: BASO % 0.1 % (0.0-1.0); EOS % 0.3 % (0.0-3.0); HEMOGLOBIN 11.5 g/dl (13.5-17.5); LYMPH # 1.3 10^3/uL (1.5-4.5); LYMPH % 14.2 % (24.0-44.0); MEAN CORPUSCULAR HEMOGLOBIN 33.7 pg (27.0-33.0); MEAN CORPUSCULAR HGB CONC 33.8 g/dl (32.0-36.5); MEAN CORPUSCULAR VOLUME 99.7 fl (80.0-96.0); MONO # 0.7 10^3/uL (0.0-0.8); MONO % 7.6 % (0.0-5.0); NEUTROPHILS # 6.7 10^3/uL (1.8-7.7); NEUTROPHILS % 74.8 % (36.0-66.0); PLATELET COUNT, AUTOMATED 166 10^3/uL (150-450); RED BLOOD COUNT 3.41 10^6/uL (4.30-6.10); RED CELL DISTRIBUTION WIDTH 14.2 % (11.5-14.5)
[2018-08-07 06:28] LABS: ANION GAP 7 MEQ/L (8-16); BLOOD UREA NITROGEN 19 MG/DL (7-18); C REACTIVE PROTEIN QUANTITATIV 2.71 MG/DL (0.00-0.30); CALCIUM LEVEL 7.5 MG/DL (8.8-10.2); CARBON DIOXIDE LEVEL 27 MEQ/L (21-32); CHLORIDE LEVEL 108 MEQ/L (98-107); CREATININE FOR GFR 0.53 MG/DL (0.70-1.30); GLOMERULAR FILTRATION RATE > 60.0 (>42); GLUCOSE, FASTING 88 MG/DL (70-100); POTASSIUM SERUM 3.2 MEQ/L (3.5-5.1); SODIUM LEVEL 142 MEQ/L (136-145)
[2018-08-07] MEDS: predniSONE 20 MG TAB PO (08:49)
[2018-08-07] MEDS: POTASSIUM CHLORIDE 10 MEQ SR TABLET PO (08:49)
[2018-08-07] MEDS: FLUCONAZOLE 50MG TABLET PO (08:49)
[2018-08-07] MEDS: ALBUTEROL SULFATE 2.5 MG/0.5 ML INH NEB SOLN INH ×2 (09:00→11:27)
[2018-08-07] MEDS ORDERED: MOXIFLOXACIN 400 MG TAB PO (21:00)
== END 2018-08-07 13:13 | DRG 391 ==
LOC: M MSPAV 07-29 10:38 → M ICU 07-28 08:39 → M MSPAV 07-30 15:05 → M ED 11:56 → M ED INP 16:44
PROC: 0D738DZ Dilation of Lower Esophagus with Intraluminal Device, Via Natural or Artificial Opening Endoscopic (ICD-10-PCS; principal; 2018-08-01 13:22)
PROC: 0DB78ZX Excision of Stomach, Pylorus, Via Natural or Artificial Opening Endoscopic, Diagnostic (ICD-10-PCS; 2018-08-01 13:22)
PROC: 0DB48ZX Excision of Esophagogastric Junction, Via Natural or Artificial Opening Endoscopic, Diagnostic (ICD-10-PCS; 2018-08-01 13:22)
DX: K22.2 Esophageal obstruction (principal); J96.01 Acute respiratory failure with hypoxia; J69.0 Pneumonitis due to inhalation of food and vomit; E87.0 Hyperosmolality and hypernatremia; F03.91 Unspecified dementia, unspecified severity, with behavioral disturbance; J44.1 Chronic obstructive pulmonary disease with (acute) exacerbation; N40.0 Benign prostatic hyperplasia without lower urinary tract symptoms; E03.9 Hypothyroidism, unspecified; I10 Essential (primary) hypertension; J84.10 Pulmonary fibrosis, unspecified; K21.9 Gastro-esophageal reflux disease without esophagitis; K59.00 Constipation, unspecified; K29.50 Unspecified chronic gastritis without bleeding; R13.10 Dysphagia, unspecified; K44.9 Diaphragmatic hernia without obstruction or gangrene; R41.0 Disorientation, unspecified; Z79.82 Long term (current) use of aspirin; Z79.899 Other long term (current) drug therapy; Z66 Do not resuscitate; R21 Rash and other nonspecific skin eruption; T42.4X5A Adverse effect of benzodiazepines, initial encounter; Z87.891 Personal history of nicotine dependence; E87.70 Fluid overload, unspecified

== ENCOUNTER → 2018-08-09 | Outpatient (REF) ==
[2018-08-09 09:54] LABS: HEMATOCRIT 42.5 % (42.0-52.0); MEAN CORPUSCULAR HEMOGLOBIN 34.1 pg (27.0-33.0); MEAN CORPUSCULAR HGB CONC 32.9 g/dl (32.0-36.5); MEAN CORPUSCULAR VOLUME 103.7 fl (80.0-96.0); PLATELET COUNT, AUTOMATED 218 10^3/uL (150-450); WHITE BLOOD COUNT 11.4 10^3/uL (4.0-10.0)
[2018-08-09 09:58] LABS: ANION GAP 6 MEQ/L (8-16); BLOOD UREA NITROGEN 24 MG/DL (7-18); CALCIUM LEVEL 8.5 MG/DL (8.8-10.2); CARBON DIOXIDE LEVEL 31 MEQ/L (21-32); CHLORIDE LEVEL 104 MEQ/L (98-107); CREATININE FOR GFR 0.83 MG/DL (0.70-1.30); GLOMERULAR FILTRATION RATE > 60.0 (>42); GLUCOSE, FASTING 137 MG/DL (70-100); POTASSIUM SERUM 3.6 MEQ/L (3.5-5.1); SODIUM LEVEL 141 MEQ/L (136-145)
== END ==
DX: E03.9 Hypothyroidism, unspecified (principal)

== ENCOUNTER → 2018-08-15 | Outpatient (REF) ==
[~2018-08-15] MED LIST changes: +ACET1TAB55 PO; +ALB2.5NEB INH; +ALBU17IN2 INH; +ASPI81CH8 PO; +AVEL1TAB3 PO; +BENA2CRE2 TOP; +ENEMENE16 PR; +FLUC150T PO; -FOLI1TAB4 PO; +FOLI1TAB5 PO; +MILK12002 PO; -MILKSUS PO; +NYAM10003 TOP; +PRED10TA2 PO; +RANI75TA10 PO; -RANI75TA9 PO; +ROBISYP7 PO; +UNIT1TAB5 PO
[2018-08-15 10:23] LABS: HEMATOCRIT 39.8 % (42.0-52.0); HEMOGLOBIN 12.6 g/dl (13.5-17.5); MEAN CORPUSCULAR HEMOGLOBIN 33.1 pg (27.0-33.0); MEAN CORPUSCULAR HGB CONC 31.7 g/dl (32.0-36.5); MEAN CORPUSCULAR VOLUME 104.5 fl (80.0-96.0); PLATELET COUNT, AUTOMATED 216 10^3/uL (150-450); RED BLOOD COUNT 3.81 10^6/uL (4.30-6.10); WHITE BLOOD COUNT 6.7 10^3/uL (4.0-10.0)
[2018-08-15 10:46] LABS: BLOOD UREA NITROGEN 23 MG/DL (7-18); CALCIUM LEVEL 7.8 MG/DL (8.8-10.2); CARBON DIOXIDE LEVEL 33 MEQ/L (21-32); CHLORIDE LEVEL 105 MEQ/L (98-107); CREATININE FOR GFR 0.62 MG/DL (0.70-1.30); GLOMERULAR FILTRATION RATE > 60.0 (>42); GLUCOSE, FASTING 140 MG/DL (70-100); POTASSIUM SERUM 4.3 MEQ/L (3.5-5.1); SODIUM LEVEL 143 MEQ/L (136-145)
== END ==
PROVIDERS: ATTEND Internal Medicine
DX: E03.9 Hypothyroidism, unspecified (principal)

== ENCOUNTER → 2018-09-12 | Outpatient (REF) | payer MEDICARE ==
[~2018-09-12] MED LIST changes: -ENEMENE16 PR; +ENEMENE4 PR; +FOLI1TAB11 PO; -FOLI1TAB5 PO; +MILK120011 PO; -MILK12002 PO; -RANI75TA10 PO; +RANI75TA15 PO
[2018-09-12 10:06] LABS: HEMATOCRIT 41.8 % (42.0-52.0); HEMOGLOBIN 13.1 g/dl (13.5-17.5); MEAN CORPUSCULAR HEMOGLOBIN 33.6 pg (27.0-33.0); MEAN CORPUSCULAR HGB CONC 31.3 g/dl (32.0-36.5); MEAN CORPUSCULAR VOLUME 107.2 fl (80.0-96.0); PLATELET COUNT, AUTOMATED 226 10^3/uL (150-450); WHITE BLOOD COUNT 6.6 10^3/uL (4.0-10.0)
[2018-09-12 10:26] LABS: BLOOD UREA NITROGEN 20 MG/DL (7-18); CALCIUM LEVEL 8.8 MG/DL (8.8-10.2); CARBON DIOXIDE LEVEL 31 MEQ/L (21-32); CHLORIDE LEVEL 103 MEQ/L (98-107); CREATININE FOR GFR 0.71 MG/DL (0.70-1.30); GLOMERULAR FILTRATION RATE > 60.0 (>42); GLUCOSE, FASTING 102 MG/DL (70-100); POTASSIUM SERUM 4.1 MEQ/L (3.5-5.1); SODIUM LEVEL 143 MEQ/L (136-145)
== END ==
PROVIDERS: ATTEND Internal Medicine
DX: E03.9 Hypothyroidism, unspecified (principal)

== ENCOUNTER → 2018-09-19 | Outpatient (REF) | payer MEDICARE ==
[2018-09-19 09:09] LABS: HEMATOCRIT 38.7 % (42.0-52.0); HEMOGLOBIN 12.4 g/dl (13.5-17.5); PLATELET COUNT, AUTOMATED 206 10^3/uL (150-450); RED BLOOD COUNT 3.65 10^6/uL (4.30-6.10); WHITE BLOOD COUNT 5.2 10^3/uL (4.0-10.0)
[2018-09-19 09:31] LABS: BLOOD UREA NITROGEN 22 MG/DL (7-18); CALCIUM LEVEL 8.7 MG/DL (8.8-10.2); CARBON DIOXIDE LEVEL 32 MEQ/L (21-32); CHLORIDE LEVEL 105 MEQ/L (98-107); GLOMERULAR FILTRATION RATE > 60.0 (>42); GLUCOSE, FASTING 81 MG/DL (70-100); POTASSIUM SERUM 3.9 MEQ/L (3.5-5.1); SODIUM LEVEL 142 MEQ/L (136-145)
== END ==
PROVIDERS: ATTEND Internal Medicine
DX: G93.40 Encephalopathy, unspecified (principal)

== ENCOUNTER → 2018-10-18 | Outpatient (REF) | payer MEDICARE ==
[2018-10-18 09:21] LABS: HEMATOCRIT 41.4 % (42.0-52.0); HEMOGLOBIN 12.9 g/dl (13.5-17.5); MEAN CORPUSCULAR HEMOGLOBIN 33.2 pg (27.0-33.0); MEAN CORPUSCULAR HGB CONC 31.2 g/dl (32.0-36.5); MEAN CORPUSCULAR VOLUME 106.7 fl (80.0-96.0); PLATELET COUNT, AUTOMATED 229 10^3/uL (150-450); RED BLOOD COUNT 3.88 10^6/uL (4.30-6.10); WHITE BLOOD COUNT 5.2 10^3/uL (4.0-10.0)
[2018-10-18 10:49] LABS: BLOOD UREA NITROGEN 19 MG/DL (7-18); CALCIUM LEVEL 8.8 MG/DL (8.8-10.2); CARBON DIOXIDE LEVEL 29 MEQ/L (21-32); CHLORIDE LEVEL 104 MEQ/L (98-107); CREATININE FOR GFR 0.68 MG/DL (0.70-1.30); GLOMERULAR FILTRATION RATE > 60.0 (>42); GLUCOSE, FASTING 80 MG/DL (70-100); POTASSIUM SERUM 3.9 MEQ/L (3.5-5.1); SODIUM LEVEL 142 MEQ/L (136-145)
== END ==
PROVIDERS: ATTEND Internal Medicine
DX: G93.40 Encephalopathy, unspecified (principal)

== ENCOUNTER → 2018-11-14 | Outpatient (REF) | payer MEDICARE ==
[2018-11-14 10:04] LABS: HEMATOCRIT 41.6 % (42.0-52.0); HEMOGLOBIN 13.3 g/dl (13.5-17.5); MEAN CORPUSCULAR HEMOGLOBIN 33.8 pg (27.0-33.0); MEAN CORPUSCULAR VOLUME 105.9 fl (80.0-96.0); PLATELET COUNT, AUTOMATED 209 10^3/uL (150-450); RED BLOOD COUNT 3.93 10^6/uL (4.30-6.10)
[2018-11-14 10:34] LABS: BLOOD UREA NITROGEN 21 MG/DL (7-18); CALCIUM LEVEL 8.6 MG/DL (8.8-10.2); CARBON DIOXIDE LEVEL 32 MEQ/L (21-32); CHLORIDE LEVEL 105 MEQ/L (98-107); CREATININE FOR GFR 0.57 MG/DL (0.70-1.30); GLOMERULAR FILTRATION RATE > 60.0 (>42); GLUCOSE, FASTING 78 MG/DL (70-100); POTASSIUM SERUM 4.1 MEQ/L (3.5-5.1); SODIUM LEVEL 141 MEQ/L (136-145)
== END ==
PROVIDERS: ATTEND Physician Assistant
DX: G93.40 Encephalopathy, unspecified (principal); Z79.899 Other long term (current) drug therapy

== ENCOUNTER → 2018-11-24 | Outpatient (REF) | payer MEDICARE ==
[~2018-11-24] MED LIST changes: +ACET-683 PO; +ACET650S3 PR; +ENSULIQ64 PO; +IPRA0.00 INH; +NEXI40CA PO; +OSEL75CA PO; +SENN8.6T7 PO; +SYMB16INH INH; +XARE10TA PO
--- NOTE | 2018-11-24 13:46 | REP ---
Clinical: Trauma/fall. Technique: Single portable view of the pelvis. Findings: There is a comminuted left femoral neck fracture. Diffuse osteopenia and degenerative changes limit further evaluation for subtle injury. Impression: Acute left femoral neck fracture with angulation. Osteopenia and degenerative changes. Further subtle injury cannot definitively be excluded. Electronically Signed by Riccardo Mckeon MD 11/24/2018 01:39 P
--- NOTE | 2018-11-24 13:54 | REP ---
Clinical: Trauma/fall. Technique: Portable AP and frog lateral views of the left femur. Findings: Acute femoral neck fracture with angulation is appreciated. Underlying age-related osteopenia and degenerative changes noted at the hip and knee joint. Impression: Left femoral neck fracture. Electronically Signed by Riccardo Mckeon MD 11/24/2018 01:46 P
== END ==
PROVIDERS: ATTEND Internal Medicine
DX: S72.002A Fracture of unspecified part of neck of left femur, initial encounter for closed fracture (principal); M85.80 Other specified disorders of bone density and structure, unspecified site; Y92.89 Other specified places as the place of occurrence of the external cause; Y93.89 Activity, other specified; Y99.8 Other external cause status; X58.XXXA Exposure to other specified factors, initial encounter

== ENCOUNTER 2018-11-28 00:27 | Inpatient (IN) | payer MEDICARE ==
[~2018-11-28] VITALS: Ht 167.6 cm; Wt 71.9 kg
[~2018-11-28 00:27] MED LIST changes: -ACET-683 PO; -ACET650S3 PR; -ENSULIQ64 PO; -IPRA0.00 INH; -NEXI40CA PO; -OSEL75CA PO; +PRED-351 PO; -PRED10TA PO; -SENN1TAB2 PO; +SENN1TAB40 PO; -SENN8.6T7 PO; -SYMB16INH INH; -XARE10TA PO
[2018-11-28] MEDS ORDERED: NS 1,000 ML IV SCH (00:55)
[2018-11-28] MEDS ORDERED: PANTOPRAZOLE SODIUM 40 MG in D5W 50 ML IV SCH (01:00)
[2018-11-28] MEDS ORDERED: ONDANSETRON 4MG/2ML VIAL (J2405) IV ONE (01:00)
[2018-11-28] MEDS ORDERED: PANTOPRAZOLE 40MG INJ (PROTONIX) (C9113) IV ONE (01:00)
[2018-11-28 01:04] LABS: BASO % 0.1 % (0.0-1.0); EOS % 0.3 % (0.0-3.0); HEMATOCRIT 29.7 % (42.0-52.0); HEMOGLOBIN 9.4 g/dl (13.5-17.5); LYMPH # 0.6 10^3/uL (1.5-4.5); LYMPH % 6.5 % (24.0-44.0); MEAN CORPUSCULAR HEMOGLOBIN 32.9 pg (27.0-33.0); MEAN CORPUSCULAR HGB CONC 31.6 g/dl (32.0-36.5); MEAN CORPUSCULAR VOLUME 103.8 fl (80.0-96.0); MONO # 1.2 10^3/uL (0.0-0.8); MONO % 12.1 % (0.0-5.0); NEUTROPHILS % 80.7 % (36.0-66.0); PLATELET COUNT, AUTOMATED 171 10^3/uL (150-450); RED BLOOD COUNT 2.86 10^6/uL (4.30-6.10); WHITE BLOOD COUNT 9.9 10^3/uL (4.0-10.0)
[2018-11-28] MEDS ORDERED: HALOPERIDOL 5 MG/ML VIAL (J1630) IV ONE ×2 (01:15→03:00)
[2018-11-28 01:30] LABS: ALBUMIN 2.8 GM/DL (3.2-5.2); ALT/SGPT 30 U/L (12-78); BILIRUBIN,DIRECT 0.2 MG/DL (0.0-0.2); BILIRUBIN,TOTAL 0.5 MG/DL (0.2-1.0); BLOOD UREA NITROGEN 20 MG/DL (7-18); CALCIUM LEVEL 7.9 MG/DL (8.8-10.2); CARBON DIOXIDE LEVEL 32 MEQ/L (21-32); CHLORIDE LEVEL 111 MEQ/L (98-107); GLOMERULAR FILTRATION RATE > 60.0 (>42); GLUCOSE, FASTING 114 MG/DL (70-100); LIPASE 57 U/L (73-393); POTASSIUM SERUM 3.7 MEQ/L (3.5-5.1); SODIUM LEVEL 148 MEQ/L (136-145); TOTAL PROTEIN 5.9 GM/DL (6.4-8.2)
[2018-11-28 01:41] LABS: INR 1.12; PROTHROMBIN TIME 14.6 SECONDS (12.1-14.4)
[2018-11-28 01:42] LABS: PARTIAL THROMBOPLASTIN TIME 35.1 SECONDS (25.4-37.6)
[2018-11-28] MEDS ORDERED: SENN1TAB41 PO ×2 (02:20)
[2018-11-28] MEDS ORDERED: IPRA0.00 INH (02:20)
[2018-11-28] MEDS ORDERED: ACET-683 PO (02:20)
[2018-11-28] MEDS ORDERED: ENSULIQ64 PO (02:20)
[2018-11-28] MEDS ORDERED: ACET650S3 PR (02:20)
[2018-11-28] MEDS ORDERED: OSEL75CA PO (02:20)
[2018-11-28] MEDS ORDERED: XARE10TA PO (02:20)
[2018-11-28] MEDS ORDERED: SYMB16INH INH (02:20)
[2018-11-28] MEDS ORDERED: VITMTA PO (02:20)
[2018-11-28] MEDS ORDERED: NEXI40CA PO (02:20)
[2018-11-28 02:49] VITALS: BP 121/57
[2018-11-28] MEDS: D5W/0.45% SODIUM CHLORIDE 1,000 ML IV ONE ×2 (03:30→06:30)
[2018-11-28] MEDS ORDERED: ONDANSETRON 4MG/2ML VIAL (J2405) IV PRN (03:45)
[2018-11-28 04:55] VITALS: BP 97/54
[2018-11-28] MEDS: LEVOTHYROXINE 100MCG TABLET (0.1MG) PO SCH (06:00)
[2018-11-28] MEDS: SUCRALFATE SUSP 1GM/10ML UD PO SCH ×3 (06:00→20:57)
[2018-11-28 08:00] VITALS: BP 150/88
--- NOTE | 2018-11-28 08:29 | REP ---
Abdomen series: Four views. History: Abdomen pain. Comparison radiographs are from November 24, 2018. The patient is status post recent left femoral head replacement. Findings: Supine AP chest x-ray shows no evidence of infiltrate. Cardiomediastinal silhouette is unremarkable. The aorta is calcific and somewhat tortuous. Supine view of the abdomen shows a normal bowel gas pattern. Extensive vascular calcifications noted. Left hip replacement. Prostate calcification is noted. There are degenerative spondylosis changes in the lumbar spine. Cross-table lateral view shows no evidence of free air or significant air fluid level. Impression: No acute abnormality noted. Electronically Signed by Jonas Thorne MD 11/28/2018 08:19 A
[2018-11-28] MEDS: OSELTAMIVIR PHOSPHATE 75 MG CAP (TAMIFLU) PO SCH (10:09)
[2018-11-28] MEDS: PANTOPRAZOLE 40MG INJ (PROTONIX) (C9113) IV SCH ×2 (10:09→20:58)
[2018-11-28] MEDS: HALOPERIDOL 5 MG/ML VIAL (J1630) IM PRN (10:14)
[2018-11-28] MEDS: SYMBICORT 160/4.5MCG INHALER 6GM INH SCH ×2 (10:22→20:11)
[2018-11-28] MEDS: IPRATROPIUM 0.5MG/ALBUTEROL 2.5MG INH SOL UD 3ML (DUONEB)(J7620) NEB PRN (10:22)
[2018-11-28] MEDS ORDERED: ACETAMINOPHEN 325 MG/10.15 ML UDC NG PRN (10:45)
[2018-11-28 12:00] VITALS: BP 134/82
[2018-11-28 16:00] VITALS: BP 160/76
[2018-11-28] MEDS: ACETAMINOPHEN 325 MG/10.15 ML UDC PO PRN (18:18)
[2018-11-28 20:00] VITALS: BP 120/58
--- NOTE | 2018-11-28 21:01 | IPNPDOC ---
Subjective Date Seen The patient was seen on 11/28/18. Subjective Chief Complaint/HPI Coffee ground emesis Events since last encounter Aside examined the patient earlier today. He the patient has baseline dementia limiting collaborated by history. It seems the patient recently had left hip fracture repaired following which patient was on Xarelto. The patient was sent over from skilled facility for concerns regarding coffee-ground emesis. At the time of my examination, the patient had nasogastric tube in place to low intermittent suction. Denies feeling nauseated at this time. Denies any chest pain or shortness of breath. Denies abdominal pain. Objective Physical Examination General Exam: Positive: Other (awake/alert. Lying in bed. A little confused.) Eye Exam: Positive: PERRLA ENT Exam: Positive: Other ENT (NG tube in place) Chest Exam: Positive: Other (diminished air entry at lung bases. No wheeze.) Heart Exam: Positive: Other (S1, S2 heard, no rubs or gallops) Abdomen Exam: Positive: Normal bowel sounds, Soft, Other (no guarding or rig idity) Neuro Exam: Positive: Other (awake, alert. Answers some yes/no to questions. Cannot tell me the month/name of Pres/or where he was) Assessment /Plan Assessment Acute blood loss anemia secondary to suspected upper GI bleed with coffee-ground emesis: -Nothing by mouth -Discussed with Dr. Cuevas from gastroenterology -Discontinue NG tube -IV fluids -IV Protonix -Monitor H&H and transfuse if hemoglobin less than 7 -Avoid blood thinners -Plan for EGD tomorrow -Discussed with son Otto COPD, not in exacerbation: -Continue Symbicort BPH: -Resume finasteride once taking by mouth Hypothyroidism: -Levothyroxine Dementia DVT prophylaxis: SCDs Plan/VTE VTE Prophylaxis Ordered?: Yes VS, I&O, 24H, Fishbone Vital Signs/I&O Vital Signs Date Time Temp Pulse Resp B/P (MAP) Pulse Ox O2 Delivery O2 Flow Rate FiO2 11/28/18 16:00 98.4 87 19 160/76 (104) 91 11/28/18 04:01 Room Air 11/28/18 01:36 2.0 Laboratory Data 24H LABS Laboratory Tests 2 11/28/18 00:57: Immature Granulocyte % (Auto) 0.3, White Blood Count 9.9, Red Blood Count 2.86L, Hemoglobin 9.4L, Hematocrit 29.7L, Mean Corpuscular Volume 103.8H, Mean Corpuscular Hemoglobin 32.9, Mean Corpuscular Hemoglobin Concent 31.6L, Red Cell Distribution Width 13.2, Platelet Count 171, Neutrophils (%) (Auto) 80.7H, Lymphocytes (%) (Auto) 6.5L, Monocytes (%) (Auto) 12.1H, Eosinophils (%) (Auto) 0.3, Basophils (%) (Auto) 0.1, Neutrophils # (Auto) 8.0H, Lymphocytes # (Auto) 0.6L, Monocytes # (Auto) 1.2H, Eosinophils # (Auto) 0.0, Basophils # (Auto) 0.0, Nucleated Red Blood Cells % (auto) 0.0, Prothrombin Time 14.6H, Prothromb Time International Ratio 1.12, Activated Partial Thromboplast Time 35.1, Anion Gap 5 L, Glomerular Filtration Rate > 60.0, Calcium Level 7.9L, Aspartate Amino Transf (AST/SGOT) 63H, Alanine Aminotransferase (ALT/SGPT) 30, Alkaline Phosphatase 52, Total Bilirubin 0.5, Direct Bilirubin 0.2, Total Protein 5.9L, Albumin 2.8L, Albumin/Globulin Ratio 0.90L, Lipase 57L 11/28/18 06:58: Bedside Glucose (Misc Panel) 120H 11/28/18 11:15: Bedside Glucose (Misc Panel) 118H 11/28/18 19:43: Bedside Glucose (Misc Panel) 124H CBC/BMP Laboratory Tests 11/28/18 00:57 Red Blood Count 2.86 L, Mean Corpuscular Volume 103.8 H, Mean Corpuscular Hemoglobin 32.9, Mean Corpuscular Hemoglobin Concent 31.6 L, Red Cell Distribu tion Width 13.2, Neutrophils (%) (Auto) 80.7 H, Lymphocytes (%) (Auto) 6.5 L, Monocytes (%) (Auto) 12.1 H, Eosinophils (%) (Auto) 0.3, Basophils (%) (Auto) 0.1, Neutrophils # (Auto) 8.0 H, Lymphocytes # (Auto) 0.6 L, Monocytes # (Auto) 1.2 H, Eosinophils # (Auto) 0.0, Basophils # (Auto) 0.0 11/28/18 13:51 ENRIQUE TITUS MD Nov 28, 2018 21:01
--- NOTE | 2018-11-28 22:02 | ECGEPIP ---
Stationary ECG Study [facility] - ED Test Date: 2018-11-28 Pat Name: RYAN BAUTISTA Department: Room: [place] [address] Gender: M Garbage Truck Helper: wally : 1940 Requested By: Bradly Cheng Order Number: [id number] Reading MD: Bradly Mendoza Measurements Intervals [place] Rate: 104 P: 82 GA: 191 QRS: 42 QRSD: 76 T: 25 QT: 270 QTc: 355 Interpretive Statements SINUS TACHYCARDIA SEPTAL MYOCARDIAL INFARCTION, PROBABLY OLD SIMILAR TO 07/28/18 Electronically Signed On 11-28-2018 22:02:42 EDT by Bradly Mendoza
[2018-11-29] VITALS (7 sets, daily range): BP systolic 115–186; BP diastolic 57–93
[2018-11-29] MEDS: IPRATROPIUM 0.5MG/ALBUTEROL 2.5MG INH SOL UD 3ML (DUONEB)(J7620) NEB PRN ×4 (00:47→23:23)
[2018-11-29] MEDS: ACETAMINOPHEN 325 MG/10.15 ML UDC PO PRN (02:34)
[2018-11-29] MEDS: LEVOTHYROXINE 100MCG TABLET (0.1MG) PO SCH (05:24)
[2018-11-29] MEDS: SUCRALFATE SUSP 1GM/10ML UD PO SCH ×3 (05:24→21:15)
[2018-11-29 06:11] LABS: HEMATOCRIT 26.5 % (42.0-52.0); HEMOGLOBIN 8.5 g/dl (13.5-17.5); MEAN CORPUSCULAR HEMOGLOBIN 33.1 pg (27.0-33.0); MEAN CORPUSCULAR HGB CONC 32.1 g/dl (32.0-36.5); MEAN CORPUSCULAR VOLUME 103.1 fl (80.0-96.0); PLATELET COUNT, AUTOMATED 156 10^3/uL (150-450); RED BLOOD COUNT 2.57 10^6/uL (4.30-6.10); WHITE BLOOD COUNT 7.5 10^3/uL (4.0-10.0)
[2018-11-29 06:40] LABS: BLOOD UREA NITROGEN 22 MG/DL (7-18); CALCIUM LEVEL 7.7 MG/DL (8.8-10.2); CARBON DIOXIDE LEVEL 30 MEQ/L (21-32); CHLORIDE LEVEL 113 MEQ/L (98-107); CREATININE FOR GFR 0.55 MG/DL (0.70-1.30); GLOMERULAR FILTRATION RATE > 60.0 (>42); GLUCOSE, FASTING 106 MG/DL (70-100); POTASSIUM SERUM 3.4 MEQ/L (3.5-5.1); SODIUM LEVEL 149 MEQ/L (136-145)
[2018-11-29] MEDS ORDERED: LIDOCAINE 2% INJ 100 MG/5 ML SDV (FOR ANES.) As Ordered ONE (08:16)
[2018-11-29] MEDS ORDERED: PROPOFOL 200 MG/20 ML VIAL As Ordered ONE (08:16)
[2018-11-29] MEDS: SYMBICORT 160/4.5MCG INHALER 6GM INH SCH ×2 (08:28→21:00)
--- NOTE | 2018-11-29 08:36 | ROOR ---
Patient Name: Saleem Jones Procedure Date: 11/29/2018 8:16 AM Date of : 1940 Age: 78 Room: [facility] Gender: Male Note Status: Finalized Procedure: Upper GI endoscopy Indications: Hematemesis Providers: Al Cuevas MD Referring MD: HARJEET DUFFY JR, MD Requesting Provider: Medicines: Monitored Anesthesia Care Complications: No immediate complications. Procedure: Pre-Anesthesia Assessment: - The heart rate, respiratory rate, oxygen saturations, blood pressure, adequacy of pulmonary ventilation, and response to care were monitored throughout the procedure. The Endoscope was introduced through the mouth, and advanced to the second part of duodenum. The upper GI endoscopy was accomplished without difficulty. The patient tolerated the procedure well. Findings: The Z-line was regular and was found 35 cm from the incisors. One cratered esophageal ulcer with no bleeding and no stigmata of recent bleeding was found 35 cm from the incisors. Localized mild inflammation characterized by congestion (edema) and erythema was found in the gastric antrum. The exam of the duodenum was otherwise normal. Impression: - Z-line regular, 35 cm from the incisors. - Non-bleeding esophageal ulcer. - Gastritis. - No specimens collected. - The examination was otherwise normal. Recommendation: - Patient has a contact number available for emergencies. The signs and symptoms of potential delayed complications were discussed with the patient. Return to normal activities tomorrow. Written discharge instructions were provided to the patient. - High fiber diet. - Follow an antireflux regimen. - [facility]. - Continue present medications. - Return to referring physician. - The findings and recommendations were discussed with the patient's family. Al Cuevas MD Al Cuevas MD 11/29/2018 8:35:56 AM Electronically signed by Al Cuevas MD Number of Addenda: 0 Note Initiated On: 11/29/2018 8:16 AM Estimated Blood Loss: Estimated blood loss: none.
[2018-11-29] MEDS: OSELTAMIVIR PHOSPHATE 75 MG CAP (TAMIFLU) PO SCH (09:55)
[2018-11-29] MEDS: PANTOPRAZOLE 40MG INJ (PROTONIX) (C9113) IV SCH ×2 (09:55→21:14)
[2018-11-29] MEDS: KCL 20MEQ IN D5/0.45NS 1000ML 1,000 ML IV SCH ×2 (09:55→21:15)
[2018-11-29] MEDS ORDERED: fentaNYL 100 MCG/2 ML INJECTION (J3010) As Ordered ONE (09:58)
[2018-11-29] MEDS: HALOPERIDOL 5 MG/ML VIAL (J1630) IM PRN (09:59)
--- NOTE | 2018-11-29 18:18 | CR ---
DATE OF CONSULTATION: 11/28/2018 SUMMARY: This is a 78-year white male admitted to [facility] ([facility]) for status post a left hip fracture repaired in [place]. The patient has been placed on Xarelto for 30 days for deep vein thrombosis (DVT) prophylaxis. The patient apparently had a single episode of coffee-ground emesis approximately 24 hours prior to this admission. No melena, hematochezia or bright blood per rectum. The patient had an nasogastric (NG) tube which was discontinued after a greenish bile was seen. The patient has dementia and is unable to give any history as for as abdominal pain. General: He is well-developed white male in no obvious acute distress. The patient is not able to give any history. Chest: Clear to auscultation. Cardiovascular exam showed a regular rhythm. No murmurs or gallops. Normal physiological split. S1, S2. Abdomen: Soft, nontender. No masses, guarding, rebound, hepatosplenomegaly. Bowel sounds positive. The patient is being seen by gastroenterology for the possible coffee-ground emesis since he has been on Xarelto. The patient's hemoglobin on admission was 9.7. Count on 11/28 was 8.5. The patient has had no major imaging studies. The patient's INR was 1.12. The patient's chemistry showed an albumin of 2.8. The patient's liver functions were normal. BUN is 20. Creatinine was 0.6. ANALYSIS: Hematemesis of unknown etiology at the present time. PLAN: Plan is to set the patient up for an upper endoscopy. The patient's Xarelto is to be discontinued and the purpose is to rule out any possible etiologies that might cause the patient to develop a GI bleed, since he must be on Xarelto. The patient is on proton pump inhibitor (PPI) medication. PLAN: Esophagogastroduodenoscopy (EGD). We will have to obtain consent from the patient's sons since the patient has dementia.
--- NOTE | 2018-11-29 20:11 | IPNPDOC ---
Subjective Date Seen The patient was seen on 11/29/18. Subjective Chief Complaint/HPI Coffee-ground emesis Events since last encounter I personally saw and examined the patient following his EGD. The patient was a little confused/agitated. Did not answer my questions. Objective Physical Examination General Exam: Positive: Other (lying in bed. He was awake and alert. Confused. Not directable) Eye Exam: Positive: PERRLA ENT Exam: Positive: Mucous membr. moist/pink Chest Exam: Positive: Other (diminished air entry at lung bases. No wheeze.) Heart Exam: Positive: Other (S1, S2 heard, no rubs or gallops) Abdomen Exam: Positive: Normal bowel sounds, Soft, Other (no guarding or rigidity) Neuro Exam: Positive: Other (confused, a little restless.) Assessment /Plan Assessment Acute blood loss anemia secondary to suspected upper GI bleed with coffee-ground emesis: -Status post EGD 11/29/[address] Cuevas -Discussed with Dr. Cuevas from gastroenterology - patient had a nonbleeding esophageal ulcer as well as some gastritis. -Per discussion with Dr. Cuevas, it will be preferable to leave the patient off anticoagulation for at least 3-5 days at a minimum to ensure that hemoglobin is stable, prior to restarting the anticoagulation -Started on clear liquidsdiet to be advanced as tolerated -Continue PPI -Monitor H&H and transfuse if hemoglobin less than 7 -Avoid blood thinners COPD, not in exacerbation: -Continue Symbicort BPH: -Resume finasteride Hypothyroidism: -Levothyroxine Dementia, with likely some worsening related to sedation meds following EGD: -Ordered sitter DVT prophylaxis: SCDs Disposition: Anticipate discharge to senior care facility tomorrow if hemogl obin remains stable. As noted, patient will need to remain off" medication for 3-5 dayswould recommend recheck hemoglobin on Tuesday, and if stable, may retry rivaroxaban Plan/VTE VTE Prophylaxis Ordered?: Yes VS, I&O, 24H, Fishbone Vital Signs/I&O Vital Signs Date Time Temp Pulse Resp B/P (MAP) Pulse Ox O2 Delivery O2 Flow Rate FiO2 11/29/18 14:00 99.0 88 16 145/69 (94) 93 11/29/18 09:16 2.0 11/28/18 04:01 Room Air I&O- Last 24 Hours up to 6 AM 11/29/18 06:00 Intake Total 840 ml Output Total 0 ml Balance 840 ml Laboratory Data 24H LABS Laboratory Tests 2 11/29/18 01:53: Bedside Glucose (Misc Panel) 89 11/29/18 06:01: Nucleated Red Blood Cells % (auto) 0.0, Anion Gap 6L, Glomerular Filtration Rate > 60.0, Blood Urea Nitrogen 22H, Creatinine 0.55L, Sodium Level 149H, Potassium Level 3.4L, Chloride Level 113H, Carbon Dioxide Level 30, Calcium Level 7.7L 11/29/18 11:51: Bedside Glucose (Misc Panel) 116H CBC/BMP Laboratory Tests 11/28/18 22:02 11/29/18 06:01 Red Blood Count 2.57 L, Mean Corpuscular Volume 103.1 H, Mean Corpuscular Hemoglobin 33.1 H, Mean Corpuscular Hemoglobin Concent 32.1, Red Cell Distribution Width 13.8, Calcium Level 7.7 L 11/29/18 13:46 ENRIQUE TITUS MD Nov 29, 2018 20:11
[2018-11-29] MEDS: FINASTERIDE 5 MG TAB PO SCH (21:14)
[2018-11-30] MEDS: LEVOTHYROXINE 100MCG TABLET (0.1MG) PO SCH (05:39)
[2018-11-30] MEDS: SUCRALFATE SUSP 1GM/10ML UD PO SCH ×3 (05:39→22:16)
[2018-11-30 06:00] VITALS: BP 135/65
[2018-11-30 06:18] LABS: HEMATOCRIT 25.8 % (42.0-52.0); HEMOGLOBIN 8.2 g/dl (13.5-17.5); MEAN CORPUSCULAR HEMOGLOBIN 32.9 pg (27.0-33.0); MEAN CORPUSCULAR HGB CONC 31.8 g/dl (32.0-36.5); MEAN CORPUSCULAR VOLUME 103.6 fl (80.0-96.0); PLATELET COUNT, AUTOMATED 168 10^3/uL (150-450); RED BLOOD COUNT 2.49 10^6/uL (4.30-6.10); WHITE BLOOD COUNT 5.1 10^3/uL (4.0-10.0)
[2018-11-30 06:32] LABS: BLOOD UREA NITROGEN 18 MG/DL (7-18); CALCIUM LEVEL 7.6 MG/DL (8.8-10.2); CARBON DIOXIDE LEVEL 27 MEQ/L (21-32); CHLORIDE LEVEL 116 MEQ/L (98-107); CREATININE FOR GFR 0.44 MG/DL (0.70-1.30); GLOMERULAR FILTRATION RATE > 60.0 (>42); GLUCOSE, FASTING 124 MG/DL (70-100); POTASSIUM SERUM 3.4 MEQ/L (3.5-5.1); SODIUM LEVEL 147 MEQ/L (136-145)
[2018-11-30] MEDS: SYMBICORT 160/4.5MCG INHALER 6GM INH SCH ×2 (07:59→18:24)
[2018-11-30] MEDS: OSELTAMIVIR PHOSPHATE 75 MG CAP (TAMIFLU) PO SCH (09:04)
[2018-11-30] MEDS: PANTOPRAZOLE 40MG INJ (PROTONIX) (C9113) IV SCH ×2 (09:05→22:17)
[2018-11-30] MEDS: ACETAMINOPHEN 325 MG/10.15 ML UDC PO PRN (09:12)
[2018-11-30 11:26] LABS: HEMATOCRIT 25.9 % (42.0-52.0); HEMOGLOBIN 8.3 g/dl (13.5-17.5)
[2018-11-30] MEDS ORDERED: SUCR10SS PO (12:09)
[2018-11-30] MEDS ORDERED: PANT40TA3 PO (12:09)
[2018-11-30 14:00] VITALS: BP 160/74
--- NOTE | 2018-11-30 17:18 | DS.PDOC ---
Discharge Summary General Date of Admission Nov 28, 2018 at 03:33 Date of Discharge 11/30/18 Specialist/Consultants Involve: Al Cuevas Discharge Summary PROCEDURES PERFORMED DURING STAY: EGD: - Z-line regular, 35 cm from the incisors. - Non-bleeding esophageal ulcer. - Gastritis. - No specimens collected. - The examination was otherwise normal. ADMITTING DIAGNOSES: 1. Upper GI bleed /coffee-ground emesis DISCHARGE DIAGNOSES: Acute blood loss anemia secondary to upper gastrointestinal bleed secondary to gastritis in setting of rivaroxaban (xarelto) therapy, CPE not in exacerbation, BPH, hypothyroidism, dementia COMPLICATIONS/CHIEF COMPLAINT: Acute Upper Gi Bleed. HISTORY OF PRESENT ILLNESS: The patient is a 78-year-old gentleman with recently undergone surgery for hip fracture following which she was [facility] to [facility] on [facility] for DVT prophylaxis. The patient presented to the hospital with coffee-ground emesis. He was admitted to our facility for further evaluation and management. HOSPITAL COURSE: Acute blood loss anemia secondary to suspected upper GI bleed with coffee-ground emesis: -Patient was kept nothing by mouth, was on IV fluids and IV Protonix -Xarelto was held -Patient was seen in consultation from gastroenterology by Dr. Cuevas -Status post EGD 11/29/[address] Cuevas - findings as noted above. Has a small nonbleeding esophageal ulcer as well as gastritis. -Per discussion with Dr. Cuevas, it will be preferable to leave the patient off anticoagulation for at least 3-5 days at a minimum to ensure that hemoglobin is stable, prior to restarting the anticoagulation -Patient was started on clear liquids and diet advancedcurrently on a mechanical soft diet -Continue PPI -Plan is to recheck hemoglobin/hematocrit (CBC) as well as BMP on Tuesday. If hemoglobin more than 8, may resume Xarelto with periodic monitoring of H&H/CBC thereafter COPD, not in exacerbation: -Continued Symbicort BPH: -Resumed finasteride Hypothyroidism: -Ct Levothyroxine Dementia, with likely some worsening related to sedation meds following EGD: -Now seems to be back to baseline Today, the patient is tolerating oral intake. No problems with nausea and vomiting. DISCHARGE MEDICATIONS: Please see below. ALLERGIES: Please see below. PHYSICAL EXAMINATION ON DISCHARGE: VITAL SIGNS: Please see below. GENERAL: Lying in bed. No distress HEENT: PERRL CARDIOVASCULAR EXAMINATION: S1, S2 heard, no rubs or gallops RESPIRATORY EXAMINATION: Clear to auscultation bilaterally anteriorly with diminished air entry at lung bases. No overt wheezing or distress ABDOMINAL EXAMINATION: Soft, nontender NEUROLOGICAL EXAMINATION: Sleeping, arousable, Oriented x0 LABORATORY DATA: Please see below. IMAGING: XR Abdomen 11/28/18: Impression: No acute abnormality noted. ACTIVITY: As tolerated. DIET: Mechanical soft, nectar thick level III liquids DISCHARGE PLAN: Plan is for the patient was discharged to [facility]. Unfortunately, arrangements could not be made for transportation today. Plan is for the patient to be discharged to [facility] facility tomorrow. We will recheck his CBC in the a.m. to ensure his hemoglobin is stable prior to discharge. DISPOSITION: [facility] facility ITEMS TO FOLLOWUP ON ON OUTPATIENT: 1. CBC and BMP on Tuesday12/04/18. If hemoglobin greater than 8, resume Xarelto with periodic monitoring of CBC thereafter. 2. Outpatient follow-up with orthopedic surgery in 1-2 weeks or as advised DISCHARGE CONDITION: Stable. TIME SPENT ON DISCHARGE: 40 minutes. Vital Signs/I&Os Vital Signs Date Time Temp Pulse Resp B/P (MAP) Pulse Ox O2 Delivery O2 Flow Rate FiO2 11/30/18 06:00 98.8 66 18 135/65 (88) 95 11/29/18 09:16 2.0 11/28/18 04:01 Room Air I&O- Last 24 Hours up to 6 AM 11/30/18 06:00 Intake Total 1158 ml Output Total 0 ml Balance 1158 ml Laboratory Data Labs 24H Laboratory Tests 2 11/29/18 16:46: Bedside Glucose (Misc Panel) 115H 11/29/18 20:26: Bedside Glucose (Misc Panel) 129H 11/30/18 05:47: Nucleated Red Blood Cells % (auto) 0.0, Anion Gap 4L, Glomerular Filtration Rate > 60.0, Blood Urea Nitrogen 18, Creatinine 0.44L, Sodium Level 147H, Potassium Level 3.4L, Chloride Level 116H, Carbon Dioxide Level 27, Calcium Level 7.6L CBC/BMP Laboratory Tests 11/29/18 13:46 11/30/18 05:47 Red Blood Count 2.49 L, Mean Corpuscular Volume 103.6 H, Mean Corpuscular Hemoglobin 32.9, Mean Corpuscular Hemoglobin Concent 31.8 L, Red Cell Distribution Width 13.9, Calcium Level 7.6 L 11/30/18 10:52 FSBS Laboratory Tests Test 11/29/18 16:46 11/29/18 20:26 Range/Units Bedside Glucose (Misc Panel) 115 129 83-110 MG/DL Discharge Medications Scheduled (Ensure Enlive) 1 Liq Liq, 1 LIQ PO TID, (Reported) 0900, 1400, 1900 Acetaminophen (Acetaminophen Extra Stren) 500 Mg Tab, 500 MG PO TID, (Reported) 0600, 1200, 2000 Albuterol/Ipratropium (Ipratropium [place]/Albut 0.5-2.5 (3) mg/3Ml) 1 Zenia Zenia, 3 ML INH QID, (Reported) 0000, 0600, 1200, 1800 Budesonide/Formoterol (Symbicort 160-4.5 Mcg/Act) 60 Puff/Inhaler Aers, 2 PUFF INH BID, (Reported) Docusate Sod/Senna (Senna S 8.6-50 mg) 1 Tab Tab, 1 TAB PO DAILY, (Reported) Esomeprazole Magnesium Trihydr (Nexium) 40 Mg Cap, 40 MG PO DAILY, (Reported) TAKES AT 1200, 35 DAYS: FIRST DOSE 11/28/18, HAS NOT STARTED YET Finasteride (Finasteride) 5 Mg Tab, 5 MG PO QHS, (Reported) Lactulose (Lactulose) 10 Gm/15 Ml Zenia, 30 ML PO Q8H, (Reported) 0500, 1300, 2100 Levothyroxine Sodium (Unithroid) 100 Mcg Tab, 100 MCG PO DAILY, (Reported) Multivitamins *[facility] STOCKED* (Thera M Plus *[facility] STOCKED*) 1 Tab Tab, 1 TAB PO DAILY, (Reported) Pantoprazole Sodium (Pantoprazole Sodium) 40 Mg Tab, 40 MG PO DAILY Sucralfate (Sucralfate) 1 Gm/10 Ml Starr, 1 GM PO Q8H Scheduled PRN Acetaminophen (Acetaminophen) 325 Mg Tab, 650 MG PO Q4H PRN for PAIN / FEVER, (Reported) Acetaminophen (Acetaminophen) 650 Mg Sup, 650 MG [place] Q4H PRN for PAIN / FEVER, (Reported) Albuterol Sulfate (Albuterol Sulfate) 2.5 Mg/0.5 Ml Neb, 2.5 MG INH Q2H PRN for SHORTNESS OF BREATH, (Reported) Bisacodyl (Dulcolax) 10 Mg Sup, 10 MG [place] DAILY PRN for CONSTIPATION, (Reported) Milk Of Magnesia (Milk of Magnesia) 1,200 Mg/15 Ml Starr, 30 ML PO DAILY PRN for CONSTIPATION, (Reported) Sodium Phosphate/Biphosphate (Enema 7-19 gm/118Ml) 1 Yenny Yenny, 1 YENNY [place] DAILY PRN for CONSTIPATION, (Reported) Allergies Coded Allergies: lorazepam (Verified Allergy, Severe, RESP DISTRESS/RASH, 11/28/18) ENRIQUE TITUS MD Nov 30, 2018 12:09
[2018-11-30 22:00] VITALS: BP 121/88
[2018-11-30] MEDS: FINASTERIDE 5 MG TAB PO SCH (22:16)
[2018-12-01] MEDS: IPRATROPIUM 0.5MG/ALBUTEROL 2.5MG INH SOL UD 3ML (DUONEB)(J7620) NEB PRN (02:35)
[2018-12-01 06:00] VITALS: BP 152/77
[2018-12-01 06:22] LABS: HEMATOCRIT 28.4 % (42.0-52.0); MEAN CORPUSCULAR HEMOGLOBIN 32.8 pg (27.0-33.0); MEAN CORPUSCULAR HGB CONC 31.7 g/dl (32.0-36.5); MEAN CORPUSCULAR VOLUME 103.6 fl (80.0-96.0); PLATELET COUNT, AUTOMATED 225 10^3/uL (150-450); RED BLOOD COUNT 2.74 10^6/uL (4.30-6.10); WHITE BLOOD COUNT 6.7 10^3/uL (4.0-10.0)
[2018-12-01] MEDS: SUCRALFATE SUSP 1GM/10ML UD PO SCH (06:23)
[2018-12-01] MEDS: LEVOTHYROXINE 100MCG TABLET (0.1MG) PO SCH (06:23)
[2018-12-01 06:39] LABS: BLOOD UREA NITROGEN 16 MG/DL (7-18); CALCIUM LEVEL 8.3 MG/DL (8.8-10.2); CARBON DIOXIDE LEVEL 26 MEQ/L (21-32); CHLORIDE LEVEL 114 MEQ/L (98-107); CREATININE FOR GFR 0.49 MG/DL (0.70-1.30); GLOMERULAR FILTRATION RATE > 60.0 (>42); GLUCOSE, FASTING 96 MG/DL (70-100); POTASSIUM SERUM 3.3 MEQ/L (3.5-5.1); SODIUM LEVEL 146 MEQ/L (136-145)
[2018-12-01] MEDS ORDERED: POTASSIUM CHLORIDE 10 MEQ SR TABLET PO ONE (08:00)
[2018-12-01] MEDS: SYMBICORT 160/4.5MCG INHALER 6GM INH SCH (08:08)
[2018-12-01] MEDS ORDERED: PANTOPRAZOLE 40MG TAB (PROTONIX) PO SCH (09:00)
[2018-12-01] MEDS: OSELTAMIVIR PHOSPHATE 75 MG CAP (TAMIFLU) PO SCH (10:01)
--- NOTE | 2018-12-01 12:43 | IPNPDOC ---
Subjective Date Seen The patient was seen on 12/01/18. Subjective Chief Complaint/HPI Coffee ground emesis Events since last encounter The patient ended up staying in the hospital as transportation could not be arranged to the [facility] facility yesterday. No overnight problems. No problems with emesis. Patient is tolerating oral intake. He remains confused and unable to provide reliable history. Objective Physical Examination General Exam: Positive: Other (lying propped up in bed. Confused. Pleasant.) Eye Exam: Positive: PERRLA ENT Exam: Positive: Mucous membr. moist/pink Chest Exam: Positive: Other (Diminshed B/L. No crackles/wheeze) Heart Exam: Positive: Other (S1, S2 heard, no rubs or gallops) Abdomen Exam: Positive: Soft, Other (Nontender) Neuro Exam: Positive: Other (Awake, alert. Confused. Moves all 4 extremities.) Assessment /Plan Assessment Acute blood loss anemia secondary to suspected upper GI bleed with coffee-ground emesis: -Patient was kept nothing by mouth, was on IV fluids and IV Protonix -Xarelto was held -Patient was seen in consultation from gastroenterology by Dr. Cuevas -Status post EGD 11/29/[address] Cuevas - Has a small nonbleeding esophageal ulcer as well as gastritis. -Per discussion with Dr. Cuevas, it will be preferable to leave the patient off anticoagulation for at least 3-5 days at a minimum to ensure that hemoglobin is stable, prior to restarting the anticoagulation -Patient currently on a mechanical soft diet -Continue PPI -Plan is to recheck hemoglobin/hematocrit (CBC) as well as BMP on Tuesday. If hemoglobin more than 8, may resume Xarelto with periodic monitoring of H&H/CBC thereafter. Hemoglobin yesterday was 8.3 and today 9.0 - has been in the low 8 range. COPD, not in exacerbation: -Continued Symbicort BPH: -Resumed finasteride Hypothyroidism: -Ct Levothyroxine Dementia, with likely some worsening related to sedation meds following EGD: -Now seems to be back to baseline Disposition: Patient will be discharged to [facility] today. Plan/VTE VTE Prophylaxis Ordered?: Yes VS, I&O, 24H, Fishbone Vital Signs/I&O Vital Signs Date Time Temp Pulse Resp B/P (MAP) Pulse Ox O2 Delivery O2 Flow Rate FiO2 4/5/19 06:00 98.2 73 19 152/77 (102) 96 11/29/18 09:16 2.0 11/28/18 04:01 Room Air I&O- Last 24 Hours up to 6 AM 12/01/18 06:00 Intake Total 383 ml Output Total 0 ml Balance 383 ml Laboratory Data 24H LABS Laboratory Tests 2 11/30/18 14:47: Bedside Glucose (Misc Panel) 100 11/30/18 17:20: Bedside Glucose (Misc Panel) 189H 11/30/18 20:26: Bedside Glucose (Misc Panel) 109 12/01/18 05:46: Nucleated Red Blood Cells % (auto) 0.0, Anion Gap 6L, Glomerular Filtration Rate > 60.0, Blood Urea Nitrogen 16, Creatinine 0.49L, Sodium Level 146H, Potassium Level 3.3L, Chloride Level 114H, Carbon Dioxide Level 26, Calcium Level 8.3L CBC/BMP Laboratory Tests 12/01/18 05:46 Red Blood Count 2.74 L, Mean Corpuscular Volume 103.6 H, Mean Corpuscular Hemoglobin 32.8, Mean Corpuscular Hemoglobin Concent 31.7 L, Red Cell Distribution Width 13.9, Calcium Level 8.3 L ENRIQUE TITUS MD Dec 01, 2018 12:31
== END 2018-12-01 11:40 | DRG 813 ==
LOC: M ED 00:27 → M ED INP 03:33 → M PCU 04:59 → M MSPAV 11-29 02:37
PROVIDERS: ADMIT Internal Medicine; ATTEND Internal Medicine
PROC: 0DJ08ZZ Inspection of Upper Intestinal Tract, Via Natural or Artificial Opening Endoscopic (ICD-10-PCS; principal; 2018-11-29 14:00)
DX: D68.32 Hemorrhagic disorder due to extrinsic circulating anticoagulants (principal); K29.71 Gastritis, unspecified, with bleeding; D62 Acute posthemorrhagic anemia; J44.9 Chronic obstructive pulmonary disease, unspecified; F03.90 Unspecified dementia, unspecified severity, without behavioral disturbance, psychotic disturbance, mood disturbance, and anxiety; E03.9 Hypothyroidism, unspecified; N40.0 Benign prostatic hyperplasia without lower urinary tract symptoms; Z79.899 Other long term (current) drug therapy; Z88.8 Allergy status to other drugs, medicaments and biological substances

== ENCOUNTER → 2018-12-04 | Outpatient (REF) | payer MEDICARE ==
[~2018-12-04] MED LIST changes: +ACET-683 PO; +ACET650S3 PR; +ENSULIQ64 PO; +IPRA0.00 INH; +NEXI40CA PO; +OSEL75CA PO; +PANT40TA3 PO; +SENN1TAB41 PO; +SUCR10SS PO; +SYMB16INH INH; +XARE10TA PO
[2018-12-04 11:11] LABS: HEMATOCRIT 29.3 % (42.0-52.0); HEMOGLOBIN 9.2 g/dl (13.5-17.5); MEAN CORPUSCULAR HEMOGLOBIN 33.1 pg (27.0-33.0); MEAN CORPUSCULAR HGB CONC 31.4 g/dl (32.0-36.5); MEAN CORPUSCULAR VOLUME 105.4 fl (80.0-96.0); PLATELET COUNT, AUTOMATED 294 10^3/uL (150-450); RED BLOOD COUNT 2.78 10^6/uL (4.30-6.10); WHITE BLOOD COUNT 8.1 10^3/uL (4.0-10.0)
[2018-12-04 11:31] LABS: BLOOD UREA NITROGEN 29 MG/DL (7-18); CALCIUM LEVEL 8.1 MG/DL (8.8-10.2); CARBON DIOXIDE LEVEL 31 MEQ/L (21-32); CHLORIDE LEVEL 111 MEQ/L (98-107); CREATININE FOR GFR 0.57 MG/DL (0.70-1.30); GLOMERULAR FILTRATION RATE > 60.0 (>42); GLUCOSE, FASTING 86 MG/DL (70-100); POTASSIUM SERUM 3.8 MEQ/L (3.5-5.1); SODIUM LEVEL 145 MEQ/L (136-145)
== END ==
PROVIDERS: ATTEND Nurse Practitioner Adult Health
DX: K92.2 Gastrointestinal hemorrhage, unspecified (principal)

== ENCOUNTER → 2018-12-07 | Outpatient (REF) | payer MEDICARE ==
[2018-12-07 10:17] LABS: HEMATOCRIT 27.7 % (42.0-52.0); HEMOGLOBIN 8.6 g/dl (13.5-17.5); MEAN CORPUSCULAR HEMOGLOBIN 33.1 pg (27.0-33.0); MEAN CORPUSCULAR VOLUME 106.5 fl (80.0-96.0); PLATELET COUNT, AUTOMATED 315 10^3/uL (150-450); WHITE BLOOD COUNT 6.5 10^3/uL (4.0-10.0)
[2018-12-07 10:46] LABS: BLOOD UREA NITROGEN 21 MG/DL (7-18); CALCIUM LEVEL 8.3 MG/DL (8.8-10.2); CARBON DIOXIDE LEVEL 30 MEQ/L (21-32); CHLORIDE LEVEL 107 MEQ/L (98-107); CREATININE FOR GFR 0.58 MG/DL (0.70-1.30); GLOMERULAR FILTRATION RATE > 60.0 (>42); GLUCOSE, FASTING 90 MG/DL (70-100); POTASSIUM SERUM 3.9 MEQ/L (3.5-5.1); SODIUM LEVEL 143 MEQ/L (136-145)
== END ==
PROVIDERS: ATTEND Internal Medicine
DX: K92.2 Gastrointestinal hemorrhage, unspecified (principal)

== ENCOUNTER → 2018-12-12 | Outpatient (REF) | PROVIDERS: ATTEND Nurse Practitioner Adult Health | DX: D64.9 Anemia, unspecified (principal) ==

== ENCOUNTER → 2018-12-13 | Outpatient (REF) ==
[~2018-12-13] MED LIST changes: +ACET500T15 PO; +DEPA1TAB PO; +FEVE650S3 PR; +LACT10SO29 PO; +LEVO100T5 PO; +SENN-50 PO; +TRAM50TA2 PO
[2018-12-13 09:30] LABS: HEMATOCRIT 29.3 % (42.0-52.0); HEMOGLOBIN 9.1 g/dl (13.5-17.5); MEAN CORPUSCULAR HEMOGLOBIN 32.3 pg (27.0-33.0); MEAN CORPUSCULAR HGB CONC 31.1 g/dl (32.0-36.5); MEAN CORPUSCULAR VOLUME 103.9 fl (80.0-96.0); PLATELET COUNT, AUTOMATED 381 10^3/uL (150-450); RED BLOOD COUNT 2.82 10^6/uL (4.30-6.10); WHITE BLOOD COUNT 4.7 10^3/uL (4.0-10.0)
== END ==
PROVIDERS: ATTEND Internal Medicine
DX: D64.9 Anemia, unspecified (principal)

== ENCOUNTER → 2018-12-18 | Outpatient (REF) ==
[2018-12-18 16:17] LABS: HEMATOCRIT 29.9 % (42.0-52.0); HEMOGLOBIN 9.2 g/dl (13.5-17.5); MEAN CORPUSCULAR HEMOGLOBIN 32.6 pg (27.0-33.0); MEAN CORPUSCULAR HGB CONC 30.8 g/dl (32.0-36.5); PLATELET COUNT, AUTOMATED 320 10^3/uL (150-450); RED BLOOD COUNT 2.82 10^6/uL (4.30-6.10); WHITE BLOOD COUNT 5.9 10^3/uL (4.0-10.0)
[2018-12-18 16:22] LABS: APPEARANCE, URINE HAZY (CLEAR); BACTERIA, URINE AUTO NEGATIVE (NEGATIVE); BILIRUBIN, URINE AUTO NEGATIVE (NEGATIVE); BLOOD, URINE BLOOD NEGATIVE (NEGATIVE); COLOR, URINE YELLOW (YELLOW); GLUCOSE, URINE (UA) AUTO NEGATIVE (NEGATIVE); KETONE, URINE AUTO NEGATIVE (NEGATIVE); LEUKOCYTE ESTERASE, URINE AUTO NEGATIVE (NEGATIVE); MUCUS, URINE SMALL (NEGATIVE); NITRITE, URINE AUTO NEGATIVE (NEGATIVE); PROTEIN, URINE AUTO NEGATIVE (NEGATIVE); RBC, URINE AUTO 4 /HPF (0-3); SPECIFIC GRAVITY URINE AUTO 1.014 (1.002-1.035); SQUAMOUS EPITHELIAL CELL UR AU 0 /HPF (0-6); UROBILINOGEN, URINE AUTO 0.2 mg/dL (0.0-2.0); WBC, URINE AUTO 6 /HPF (0-3)
[2018-12-18 16:35] LABS: ALBUMIN 3.1 GM/DL (3.2-5.2); ALT/SGPT 35 U/L (12-78); BILIRUBIN,TOTAL 0.2 MG/DL (0.2-1.0); BLOOD UREA NITROGEN 18 MG/DL (7-18); CALCIUM LEVEL 8.2 MG/DL (8.8-10.2); CARBON DIOXIDE LEVEL 29 MEQ/L (21-32); CHLORIDE LEVEL 104 MEQ/L (98-107); GLOMERULAR FILTRATION RATE > 60.0 (>42); GLUCOSE, FASTING 135 MG/DL (70-100); POTASSIUM SERUM 3.8 MEQ/L (3.5-5.1); SODIUM LEVEL 138 MEQ/L (136-145); TOTAL PROTEIN 6.6 GM/DL (6.4-8.2)
== END ==
PROVIDERS: ATTEND Internal Medicine
DX: R41.82 Altered mental status, unspecified (principal)

== ENCOUNTER → 2018-12-19 | Outpatient (REF) | payer MEDICARE ==
--- NOTE | 2018-12-19 13:12 | REP ---
Chest x-ray: Single view. History: Cough. COPD. Comparison study November 28, 2018. Findings: Today's views exposed at a somewhat lesser level of inspiration. No focal infiltrate is seen. Heart is mildly enlarged unchanged. Pulmonary vasculature is not increased. No significant bony abnormality. Impression: No focal infiltrate seen. Electronically Signed by Jonas Thorne MD 12/19/2018 01:03 P
== END ==
PROVIDERS: ATTEND Internal Medicine
DX: J44.9 Chronic obstructive pulmonary disease, unspecified (principal); R05 Cough

== ENCOUNTER → 2018-12-27 | Outpatient (REF) | payer MEDICARE ==
[2018-12-27 08:44] LABS: HEMATOCRIT 32.7 % (42.0-52.0); HEMOGLOBIN 9.9 g/dl (13.5-17.5); MEAN CORPUSCULAR HEMOGLOBIN 31.1 pg (27.0-33.0); MEAN CORPUSCULAR HGB CONC 30.3 g/dl (32.0-36.5); MEAN CORPUSCULAR VOLUME 102.8 fl (80.0-96.0); PLATELET COUNT, AUTOMATED 279 10^3/uL (150-450); RED BLOOD COUNT 3.18 10^6/uL (4.30-6.10); WHITE BLOOD COUNT 4.1 10^3/uL (4.0-10.0)
[2018-12-27 09:15] LABS: BLOOD UREA NITROGEN 29 MG/DL (7-18); CALCIUM LEVEL 8.8 MG/DL (8.8-10.2); CARBON DIOXIDE LEVEL 29 MEQ/L (21-32); CHLORIDE LEVEL 109 MEQ/L (98-107); GLOMERULAR FILTRATION RATE > 60.0 (>42); GLUCOSE, FASTING 82 MG/DL (70-100); POTASSIUM SERUM 3.7 MEQ/L (3.5-5.1); SODIUM LEVEL 143 MEQ/L (136-145)
== END ==
PROVIDERS: ATTEND Internal Medicine
DX: J44.9 Chronic obstructive pulmonary disease, unspecified (principal)

== ENCOUNTER → 2019-01-03 | Outpatient (REF) | payer MEDICARE ==
[2019-01-03 09:24] LABS: HEMATOCRIT 33.8 % (42.0-52.0); HEMOGLOBIN 10.3 g/dl (13.5-17.5); MEAN CORPUSCULAR HEMOGLOBIN 31.1 pg (27.0-33.0); MEAN CORPUSCULAR HGB CONC 30.5 g/dl (32.0-36.5); MEAN CORPUSCULAR VOLUME 102.1 fl (80.0-96.0); PLATELET COUNT, AUTOMATED 274 10^3/uL (150-450); RED BLOOD COUNT 3.31 10^6/uL (4.30-6.10); WHITE BLOOD COUNT 5.4 10^3/uL (4.0-10.0)
[2019-01-03 09:39] LABS: BLOOD UREA NITROGEN 18 MG/DL (7-18); CALCIUM LEVEL 8.7 MG/DL (8.8-10.2); CARBON DIOXIDE LEVEL 30 MEQ/L (21-32); CHLORIDE LEVEL 107 MEQ/L (98-107); CREATININE FOR GFR 0.65 MG/DL (0.70-1.30); GLOMERULAR FILTRATION RATE > 60.0 (>42); GLUCOSE, FASTING 121 MG/DL (70-100); SODIUM LEVEL 141 MEQ/L (136-145)
== END ==
PROVIDERS: ATTEND Internal Medicine
DX: J44.9 Chronic obstructive pulmonary disease, unspecified (principal)

== ENCOUNTER → 2019-01-10 | Outpatient (REF) | payer MEDICARE ==
[2019-01-10 10:36] LABS: HEMATOCRIT 34.7 % (42.0-52.0); HEMOGLOBIN 10.5 g/dl (13.5-17.5); MEAN CORPUSCULAR HEMOGLOBIN 31.8 pg (27.0-33.0); MEAN CORPUSCULAR HGB CONC 30.3 g/dl (32.0-36.5); MEAN CORPUSCULAR VOLUME 105.2 fl (80.0-96.0); PLATELET COUNT, AUTOMATED 239 10^3/uL (150-450)
[2019-01-10 11:10] LABS: BLOOD UREA NITROGEN 20 MG/DL (7-18); CALCIUM LEVEL 8.6 MG/DL (8.8-10.2); CARBON DIOXIDE LEVEL 31 MEQ/L (21-32); CHLORIDE LEVEL 104 MEQ/L (98-107); CREATININE FOR GFR 0.65 MG/DL (0.70-1.30); GLOMERULAR FILTRATION RATE > 60.0 (>42); GLUCOSE, FASTING 147 MG/DL (70-100); POTASSIUM SERUM 3.8 MEQ/L (3.5-5.1); SODIUM LEVEL 141 MEQ/L (136-145)
== END ==
PROVIDERS: ATTEND Internal Medicine
DX: J44.9 Chronic obstructive pulmonary disease, unspecified (principal)

== ENCOUNTER → 2019-01-17 | Outpatient (REF) | payer MEDICARE ==
[2019-01-17 08:21] LABS: HEMOGLOBIN 10.2 g/dl (13.5-17.5); MEAN CORPUSCULAR HEMOGLOBIN 30.5 pg (27.0-33.0); MEAN CORPUSCULAR VOLUME 101.8 fl (80.0-96.0); PLATELET COUNT, AUTOMATED 246 10^3/uL (150-450); RED BLOOD COUNT 3.34 10^6/uL (4.30-6.10); WHITE BLOOD COUNT 4.9 10^3/uL (4.0-10.0)
[2019-01-17 08:50] LABS: BLOOD UREA NITROGEN 22 MG/DL (7-18); CALCIUM LEVEL 8.9 MG/DL (8.8-10.2); CARBON DIOXIDE LEVEL 31 MEQ/L (21-32); CHLORIDE LEVEL 104 MEQ/L (98-107); GLOMERULAR FILTRATION RATE > 60.0 (>42); GLUCOSE, FASTING 81 MG/DL (70-100); POTASSIUM SERUM 4.3 MEQ/L (3.5-5.1); SODIUM LEVEL 140 MEQ/L (136-145)
== END ==
PROVIDERS: ATTEND Internal Medicine
DX: J44.9 Chronic obstructive pulmonary disease, unspecified (principal); E03.9 Hypothyroidism, unspecified

== ENCOUNTER → 2019-01-24 | Outpatient (REF) | payer MEDICARE ==
[2019-01-24 08:51] LABS: HEMATOCRIT 35.3 % (42.0-52.0); HEMOGLOBIN 10.9 g/dl (13.5-17.5); MEAN CORPUSCULAR HGB CONC 30.9 g/dl (32.0-36.5); MEAN CORPUSCULAR VOLUME 103.5 fl (80.0-96.0); PLATELET COUNT, AUTOMATED 246 10^3/uL (150-450); RED BLOOD COUNT 3.41 10^6/uL (4.30-6.10)
[2019-01-24 09:10] LABS: BLOOD UREA NITROGEN 16 MG/DL (7-18); CARBON DIOXIDE LEVEL 30 MEQ/L (21-32); CHLORIDE LEVEL 106 MEQ/L (98-107); CREATININE FOR GFR 0.63 MG/DL (0.70-1.30); GLOMERULAR FILTRATION RATE > 60.0 (>42); GLUCOSE, FASTING 81 MG/DL (70-100); POTASSIUM SERUM 4.2 MEQ/L (3.5-5.1); SODIUM LEVEL 141 MEQ/L (136-145)
== END ==
PROVIDERS: ATTEND Internal Medicine
DX: J44.9 Chronic obstructive pulmonary disease, unspecified (principal)

== ENCOUNTER → 2019-03-22 | Outpatient (CLI) | payer MEDICARE ==
[~2019-03-22] MED LIST changes: -OMEP20CA3 PO; +OMEP20CA4 PO
--- NOTE | 2019-03-22 17:20 | REP ---
COOKIE SWALLOW The procedure was performed under the direct supervision of Dr. Dudley. The procedure was performed with Beba Pichardo speech pathology present. 5 ml aliquots of thin, pudding, mixed fruit, soft, solid and a barium pill were administered. With thin consistency barium there is laryngeal penetration. A detailed report of this examination will be provided by speech pathology. 1 minute of fluoroscopy time was utilized for this procedure. Reviewed by KELI Ramírez 03/22/2019 04:00 P Electronically Signed by Gaurang Dudley MD 03/22/2019 05:12 P
--- NOTE | 2019-03-23 15:12 | NUR ---
Pt seen for Modified Barium Swallow Study d/t recent observations of spitting out chewed foods, unable to eat meals, refusing meds and vomiting following meals. Pt. does have a hx significant for esophageal stricture 07/2018. Pt provided with thin liquid, puree, soft solid/thin liquid mix, bread item, crunchy cookie and barium tablet (thin liquid wash administration). Flash penetration noted with thin liquid during the swallow. No aspiration. No significance to the flash penetration. Recommend: Regular solids (foods cut small) with thin liquids. Meds whole with thin liquid wash. Full upright position. Assist and supervision during meals. Oral care following every meal. MD consider GI consult. Addendum: 03/23/19 at 1519 by CHARANJIT FRITZ [facility] Amended: Links added.
== END ==
LOC: M ST 11:29
PROVIDERS: ATTEND Nurse Practitioner Adult Health
DX: R11.10 Vomiting, unspecified (principal)

== ENCOUNTER → 2019-05-15 | Outpatient (REF) | payer MEDICARE ==
[~2019-05-15] MED LIST changes: -ALBU17IN2 INH; +PROV108A INH
== END ==
PROVIDERS: ATTEND Internal Medicine
DX: E03.9 Hypothyroidism, unspecified (principal)

== ENCOUNTER → 2019-05-18 | Outpatient (REF) | payer MEDICARE ==
[2019-05-18 14:36] LABS: HEMATOCRIT 38.7 % (42.0-52.0); HEMOGLOBIN 12.3 g/dl (13.5-17.5); MEAN CORPUSCULAR HEMOGLOBIN 31.9 pg (27.0-33.0); MEAN CORPUSCULAR HGB CONC 31.8 g/dl (32.0-36.5); MEAN CORPUSCULAR VOLUME 100.3 fl (80.0-96.0); PLATELET COUNT, AUTOMATED 239 10^3/uL (150-450); RED BLOOD COUNT 3.86 10^6/uL (4.30-6.10); WHITE BLOOD COUNT 5.5 10^3/uL (4.0-10.0)
[2019-05-18 14:57] LABS: BLOOD UREA NITROGEN 21 MG/DL (7-18); CALCIUM LEVEL 8.9 MG/DL (8.8-10.2); CARBON DIOXIDE LEVEL 28 MEQ/L (21-32); CHLORIDE LEVEL 103 MEQ/L (98-107); CREATININE FOR GFR 0.79 MG/DL (0.70-1.30); GLOMERULAR FILTRATION RATE > 60.0 (>42); GLUCOSE, FASTING 87 MG/DL (70-100); POTASSIUM SERUM 3.8 MEQ/L (3.5-5.1); SODIUM LEVEL 140 MEQ/L (136-145)
== END ==
PROVIDERS: ATTEND Internal Medicine
DX: G93.41 Metabolic encephalopathy (principal)

== ENCOUNTER → 2019-06-12 | Outpatient (REF) | payer MEDICARE | PROVIDERS: ATTEND Internal Medicine | DX: E03.9 Hypothyroidism, unspecified (principal) ==

== ENCOUNTER → 2019-07-11 | Outpatient (REF) | payer MEDICARE ==
[~2019-07-11] MED LIST changes: +SENN-53 PO; -SENN1TAB40 PO
[2019-07-11 09:56] LABS: HEMATOCRIT 40.7 % (42.0-52.0); HEMOGLOBIN 12.8 g/dl (13.5-17.5); MEAN CORPUSCULAR HEMOGLOBIN 33.5 pg (27.0-33.0); MEAN CORPUSCULAR HGB CONC 31.4 g/dl (32.0-36.5); MEAN CORPUSCULAR VOLUME 106.5 fl (80.0-96.0); PLATELET COUNT, AUTOMATED 225 10^3/uL (150-450); RED BLOOD COUNT 3.82 10^6/uL (4.30-6.10)
[2019-07-11 10:18] LABS: ALBUMIN 3.5 GM/DL (3.2-5.2); ALT/SGPT 31 U/L (12-78); BILIRUBIN,TOTAL 0.5 MG/DL (0.2-1.0); BLOOD UREA NITROGEN 24 MG/DL (7-18); CALCIUM LEVEL 9.1 MG/DL (8.8-10.2); CARBON DIOXIDE LEVEL 30 MEQ/L (21-32); CHLORIDE LEVEL 109 MEQ/L (98-107); CREATININE FOR GFR 0.73 MG/DL (0.70-1.30); GLOMERULAR FILTRATION RATE > 60.0 (>42); GLUCOSE, FASTING 108 MG/DL (70-100); SODIUM LEVEL 143 MEQ/L (136-145); TOTAL PROTEIN 6.9 GM/DL (6.4-8.2)
== END ==
PROVIDERS: ATTEND Internal Medicine
DX: F03.90 Unspecified dementia, unspecified severity, without behavioral disturbance, psychotic disturbance, mood disturbance, and anxiety (principal)

== ENCOUNTER → 2019-07-24 | Outpatient (REF) | payer MEDICARE ==
[2019-07-24 10:39] LABS: BASO % 0.2 % (0.0-1.0); EOS # 0.1 10^3/uL (0.0-0.5); EOS % 2.6 % (0.0-3.0); HEMATOCRIT 40.1 % (42.0-52.0); HEMOGLOBIN 12.5 g/dl (13.5-17.5); LYMPH # 0.9 10^3/uL (1.5-5.0); LYMPH % 17.5 % (24.0-44.0); MEAN CORPUSCULAR HEMOGLOBIN 33.3 pg (27.0-33.0); MEAN CORPUSCULAR HGB CONC 31.2 g/dl (32.0-36.5); MEAN CORPUSCULAR VOLUME 106.9 fl (80.0-96.0); MONO # 0.5 10^3/uL (0.0-0.8); MONO % 10.4 % (0.0-5.0); NEUTROPHILS # 3.4 10^3/uL (1.5-8.5); NEUTROPHILS % 69.1 % (36.0-66.0); PLATELET COUNT, AUTOMATED 178 10^3/uL (150-450); RED BLOOD COUNT 3.75 10^6/uL (4.30-6.10)
[2019-07-24 11:12] LABS: ERYTHROCYTE SEDIMENTATION RATE 12 mm/hr (0-20)
[2019-07-24 11:31] LABS: ALBUMIN 3.3 GM/DL (3.2-5.2); ALT/SGPT 27 U/L (12-78); BILIRUBIN,TOTAL 0.5 MG/DL (0.2-1.0); BLOOD UREA NITROGEN 20 MG/DL (7-18); C REACTIVE PROTEIN QUANTITATIV < 0.30 MG/DL (0.00-0.30); CALCIUM LEVEL 8.6 MG/DL (8.8-10.2); CARBON DIOXIDE LEVEL 28 MEQ/L (21-32); CHLORIDE LEVEL 108 MEQ/L (98-107); CREATININE FOR GFR 0.58 MG/DL (0.70-1.30); GLOMERULAR FILTRATION RATE > 60.0 (>42); GLUCOSE, FASTING 72 MG/DL (70-100); MAGNESIUM LEVEL 2.1 MG/DL (1.8-2.4); NT-PRO BNP 80 PG/ML (<450); POTASSIUM SERUM 4.3 MEQ/L (3.5-5.1); SODIUM LEVEL 141 MEQ/L (136-145); TOTAL PROTEIN 6.9 GM/DL (6.4-8.2); VITAMIN B12 LEVEL 556 PG/ML (247-911)
--- NOTE | 2019-07-24 11:33 | REPPI ---
Clinical: COPD . Comparison: 11/24/2018, 12/19/2018 . Findings: The mediastinum and cardiac silhouette are stable and within normal limits for portable technique. The lung glez are clear without acute consolidation, effusion, or pneumothorax. Skeletal structures are intact. Impression: No acute cardiopulmonary process appreciated. Electronically Signed by Riccardo Mckeon MD 07/24/2019 11:24 A
== END ==
PROVIDERS: ATTEND Internal Medicine
DX: F03.90 Unspecified dementia, unspecified severity, without behavioral disturbance, psychotic disturbance, mood disturbance, and anxiety (principal)

== ENCOUNTER → 2019-07-25 | Outpatient (REF) | payer MEDICARE ==
[2019-07-25 20:03] LABS: APPEARANCE, URINE MANUAL HAZY (CLEAR); COLOR, URINE MANUAL YELLOW (YELLOW)
[2019-07-25 20:04] LABS: BILIRUBIN, URINE MANUAL NEGATIVE (NEGATIVE); BLOOD URINE MANUAL NEGATIVE (NEGATIVE); GLUCOSE, URINE (UA) MANUAL NEGATIVE (NEGATIVE); KETONE, URINE MANUAL NEGATIVE (NEGATIVE); LEUKOCYTE ESTERASE, URINE MAN NEGATIVE (NEGATIVE); NITRITE, URINE MANUAL NEGATIVE (NEGATIVE); PROTEIN, URINE MANUAL TRACE mg/dL (NEGATIVE); UROBILINOGEN, URINE MANUAL NORMAL (NORMAL)
[2019-07-25 20:28] LABS: BACTERIA, URINE LARGE AMOUNT; HYALINE CAST, URINE NONE SEEN /lpf (0-1); RBC, URINE NONE SEEN /hpf (0-3); SQUAMOUS EPITHELIAL CELL URINE NONE SEEN /hpf (SMALL AMT)
== END ==
PROVIDERS: ATTEND Internal Medicine
DX: F03.90 Unspecified dementia, unspecified severity, without behavioral disturbance, psychotic disturbance, mood disturbance, and anxiety (principal); I10 Essential (primary) hypertension; J44.9 Chronic obstructive pulmonary disease, unspecified

== ENCOUNTER 2019-10-06 14:04 | Emergency (ER) | payer MEDICARE ==
[~2019-10-06 14:04] MED LIST changes: +OMEP1CAP73 PO; -OMEP20CA4 PO; -SUCR10SS PO; +SUCR1ORA2 PO
--- NOTE | 2019-10-06 14:57 | REP ---
Clinical: Trauma. Fall. Technique: Frontal view of the pelvis with neutral and frog lateral views of the left hip. Findings: Osteopenia and degenerative changes are appreciated. Evidence of prior left hip replacement. No acute fracture or dislocation identified. Impression: No acute fracture or dislocation. Electronically Signed by Riccardo Mckeon MD 10/06/2019 02:49 P
[2019-10-06 15:32] VITALS: BP 151/74
== END 2019-10-06 16:40 | disposition home or self-care (01) ==
LOC: EDBD 14:04 → M ED 14:04
DX: S70.02XA Contusion of left hip, initial encounter (principal); W01.0XXA Fall on same level from slipping, tripping and stumbling without subsequent striking against object, initial encounter; Y92.9 Unspecified place or not applicable; Y93.9 Activity, unspecified; Y99.9 Unspecified external cause status; R29.6 Repeated falls; I11.9 Hypertensive heart disease without heart failure; Z79.51 Long term (current) use of inhaled steroids; Z79.899 Other long term (current) drug therapy; Z88.8 Allergy status to other drugs, medicaments and biological substances

== ENCOUNTER → 2019-10-22 | Outpatient (REF) | payer MEDICARE | PROVIDERS: ATTEND Internal Medicine | DX: J02.9 Acute pharyngitis, unspecified (principal) ==

== ENCOUNTER → 2019-10-23 | Outpatient (REF) | payer MEDICARE ==
[2019-10-23 10:08] LABS: HEMATOCRIT 39.1 % (42.0-52.0); HEMOGLOBIN 12.5 g/dl (13.5-17.5); MEAN CORPUSCULAR HEMOGLOBIN 33.5 pg (27.0-33.0); MEAN CORPUSCULAR VOLUME 104.8 fl (80.0-96.0); PLATELET COUNT, AUTOMATED 210 10^3/uL (150-450); RED BLOOD COUNT 3.73 10^6/uL (4.30-6.10); WHITE BLOOD COUNT 5.3 10^3/uL (4.0-10.0)
[2019-10-23 10:42] LABS: ALBUMIN 3.4 GM/DL (3.2-5.2); ALT/SGPT 21 U/L (12-78); BILIRUBIN,TOTAL 0.4 MG/DL (0.2-1.0); BLOOD UREA NITROGEN 31 MG/DL (7-18); CALCIUM LEVEL 8.8 MG/DL (8.8-10.2); CARBON DIOXIDE LEVEL 30 MEQ/L (21-32); CHLORIDE LEVEL 110 MEQ/L (98-107); CREATININE FOR GFR 0.67 MG/DL (0.70-1.30); GLOMERULAR FILTRATION RATE > 60.0 (>42); GLUCOSE, FASTING 91 MG/DL (70-100); POTASSIUM SERUM 4.1 MEQ/L (3.5-5.1); SODIUM LEVEL 144 MEQ/L (136-145); THYROID STIMULATING HORMONE 0.952 uIU/ML (0.358-3.740); TOTAL PROTEIN 6.7 GM/DL (6.4-8.2)
--- NOTE | 2019-10-23 11:22 | REPPI ---
AP chest, the patient semi upright two views, 10:37 a.m.: Comparison is 07/24/2019. The lung glez are clear. The cardiac size is normal. The lolita, mediastinum, skeletal structures are unremarkable. Impression: There are no acute cardiopulmonary findings. Electronically Signed by Gaurang Noguera MD 10/23/2019 11:13 A
== END ==
PROVIDERS: ATTEND Internal Medicine
DX: J02.9 Acute pharyngitis, unspecified (principal); R05 Cough; Z79.899 Other long term (current) drug therapy

== ENCOUNTER → 2019-11-14 | Outpatient (REF) | payer MEDICARE ==
[2019-11-14 10:47] LABS: HEMATOCRIT 44.1 % (42.0-52.0); MEAN CORPUSCULAR HEMOGLOBIN 33.8 pg (27.0-33.0); MEAN CORPUSCULAR HGB CONC 31.7 g/dl (32.0-36.5); MEAN CORPUSCULAR VOLUME 106.5 fl (80.0-96.0); PLATELET COUNT, AUTOMATED 200 10^3/uL (150-450); RED BLOOD COUNT 4.14 10^6/uL (4.30-6.10); WHITE BLOOD COUNT 6.9 10^3/uL (4.0-10.0)
[2019-11-14 11:18] LABS: BLOOD UREA NITROGEN 23 MG/DL (7-18); CALCIUM LEVEL 9.1 MG/DL (8.8-10.2); CARBON DIOXIDE LEVEL 30 MEQ/L (21-32); CHLORIDE LEVEL 110 MEQ/L (98-107); CREATININE FOR GFR 0.83 MG/DL (0.70-1.30); GLOMERULAR FILTRATION RATE > 60.0 (>42); GLUCOSE, FASTING 135 MG/DL (70-100); POTASSIUM SERUM 3.8 MEQ/L (3.5-5.1); SODIUM LEVEL 143 MEQ/L (136-145)
== END ==
PROVIDERS: ATTEND Internal Medicine
DX: E03.9 Hypothyroidism, unspecified (principal)

== ENCOUNTER → 2020-01-15 | Outpatient (REF) ==
[~2020-01-15] MED LIST changes: +ACET325T42 PO; -MAPA325T3 PO
== END ==
PROVIDERS: ATTEND Internal Medicine
DX: Z03.818 Encounter for observation for suspected exposure to other biological agents ruled out (principal)

== ENCOUNTER → 2020-02-05 | Outpatient (REF) | payer MEDICARE ==
[~2020-02-05] MED LIST changes: -LACT10SO29 PO; +LACT20EL PO
[2020-02-05 11:18] LABS: BASO % 0.2 % (0.0-1.0); EOS # 0.1 10^3/uL (0.0-0.5); EOS % 1.3 % (0.0-3.0); HEMATOCRIT 40.7 % (42.0-52.0); HEMOGLOBIN 12.8 g/dl (13.5-17.5); LYMPH # 0.9 10^3/uL (1.5-5.0); LYMPH % 15.3 % (24.0-44.0); MEAN CORPUSCULAR HEMOGLOBIN 32.7 pg (27.0-33.0); MEAN CORPUSCULAR HGB CONC 31.4 g/dl (32.0-36.5); MEAN CORPUSCULAR VOLUME 104.1 fl (80.0-96.0); MONO # 0.5 10^3/uL (0.0-0.8); MONO % 8.8 % (0.0-5.0); NEUTROPHILS # 4.5 10^3/uL (1.5-8.5); NEUTROPHILS % 74.1 % (36.0-66.0); PLATELET COUNT, AUTOMATED 213 10^3/uL (150-450); RED BLOOD COUNT 3.91 10^6/uL (4.30-6.10)
[2020-02-05 11:41] LABS: ALT/SGPT 57 U/L (12-78); BLOOD UREA NITROGEN 36 MG/DL (7-18); CALCIUM LEVEL 9.1 MG/DL (8.8-10.2); CARBON DIOXIDE LEVEL 30 MEQ/L (21-32); CHLORIDE LEVEL 107 MEQ/L (98-107); CREATININE FOR GFR 0.83 MG/DL (0.70-1.30); GLOMERULAR FILTRATION RATE > 60.0 (>42); GLUCOSE, FASTING 91 MG/DL (70-100); POTASSIUM SERUM 4.1 MEQ/L (3.5-5.1); SODIUM LEVEL 144 MEQ/L (136-145)
[2020-02-05 11:42] LABS: ALBUMIN 3.5 GM/DL (3.2-5.2); BILIRUBIN,TOTAL 0.4 MG/DL (0.2-1.0); NT-PRO BNP 224 PG/ML (<450); TOTAL PROTEIN 7.3 GM/DL (6.4-8.2)
--- NOTE | 2020-02-05 16:10 | REPPI ---
CHEST, SINGLE VIEW: Single view of the chest is performed and compared to a prior study of 10/23/2019. There is infiltrate at the left lung base. Right lung is unchanged with no new infiltrate. Heart does not appear to be significantly enlarged. There is calcification of the thoracic aorta. IMPRESSION: Left basilar infiltrate. Electronically Signed by Gaurang Dudley MD 02/07/2020 12:51 A
== END ==
PROVIDERS: ATTEND Internal Medicine
DX: R06.02 Shortness of breath (principal); J44.9 Chronic obstructive pulmonary disease, unspecified

== ENCOUNTER → 2020-02-07 | Outpatient (REF) | payer MEDICARE | PROVIDERS: ATTEND Internal Medicine | DX: J18.9 Pneumonia, unspecified organism (principal) ==

== ENCOUNTER → 2020-02-13 | Outpatient (REF) | payer MEDICARE ==
[2020-02-13 12:00] LABS: HEMATOCRIT 39.6 % (42.0-52.0); HEMOGLOBIN 12.7 g/dl (13.5-17.5); MEAN CORPUSCULAR HEMOGLOBIN 33.3 pg (27.0-33.0); MEAN CORPUSCULAR HGB CONC 32.1 g/dl (32.0-36.5); MEAN CORPUSCULAR VOLUME 103.9 fl (80.0-96.0); PLATELET COUNT, AUTOMATED 222 10^3/uL (150-450); RED BLOOD COUNT 3.81 10^6/uL (4.30-6.10); WHITE BLOOD COUNT 8.1 10^3/uL (4.0-10.0)
[2020-02-13 12:51] LABS: ALBUMIN 3.5 GM/DL (3.2-5.2); ALT/SGPT 57 U/L (12-78); BILIRUBIN,TOTAL 0.5 MG/DL (0.2-1.0); BLOOD UREA NITROGEN 29 MG/DL (7-18); CALCIUM LEVEL 9.2 MG/DL (8.8-10.2); CARBON DIOXIDE LEVEL 30 MEQ/L (21-32); CHLORIDE LEVEL 107 MEQ/L (98-107); CREATININE FOR GFR 0.71 MG/DL (0.70-1.30); GLOMERULAR FILTRATION RATE > 60.0 (>42); GLUCOSE, FASTING 110 MG/DL (70-100); POTASSIUM SERUM 4.5 MEQ/L (3.5-5.1); SODIUM LEVEL 141 MEQ/L (136-145); THYROID STIMULATING HORMONE 0.493 uIU/ML (0.358-3.740); TOTAL PROTEIN 6.8 GM/DL (6.4-8.2)
--- NOTE | 2020-02-13 15:30 | REPPI ---
REASON: Altered mental status. COMPARISON: Multiple, the latest 02/05/2020. The opacity seen previously in the left lung base with left CP angle blunting have improved. There are no new abnormal opacities. The heart is not enlarged. The lung glez are otherwise clear. There is no change in the osseous structures. IMPRESSION: No acute cardiopulmonary disease. Clear left lung base. Electronically Signed by Gerardo Tang DO 02/13/2020 05:05 P
== END ==
PROVIDERS: ATTEND Internal Medicine
DX: R41.82 Altered mental status, unspecified (principal)

== ENCOUNTER → 2020-02-15 | Outpatient (REF) | payer MEDICARE | PROVIDERS: ATTEND Internal Medicine | DX: R41.82 Altered mental status, unspecified (principal) ==

== ENCOUNTER → 2020-02-28 | Outpatient (REF) | payer MEDICARE ==
--- NOTE | 2020-02-28 15:12 | REPPI ---
A chest x-ray: Single AP view portably obtained. Comparison study February 13, 2020. History: Pain. Findings: The patient is rotated somewhat to the left. Lungs are well inflated and free of infiltrate. Pleural angles are sharp. Cardiomediastinal silhouette is unremarkable and unchanged. Impression: No acute disease. Electronically Signed by Jonas Thorne MD 02/28/2020 03:03 P
--- NOTE | 2020-02-28 15:13 | REPPI ---
KUB: Portable abdomen. Single view. History: Pain. No comparisons. Findings: The patient is status post left hip replacement. Vascular calcifications noted. There is air and stool in a nondistended colon. No small or large bowel dilation is seen. There are degenerative changes in the lumbar spine. Impression: Unremarkable bowel gas pattern. Vascular calcification. Left hip replacement. Electronically Signed by Jonas Thorne MD 02/28/2020 03:04 P
== END ==
PROVIDERS: ATTEND Nurse Practitioner Adult Health
DX: R52 Pain, unspecified (principal)

== ENCOUNTER → 2020-03-11 | Outpatient (REF) | payer MEDICARE ==
[2020-03-11 13:09] LABS: BASO % 0.3 % (0.0-1.0); EOS % 0.3 % (0.0-3.0); HEMATOCRIT 39.7 % (42.0-52.0); HEMOGLOBIN 12.5 g/dl (13.5-17.5); LYMPH # 0.9 10^3/uL (1.5-5.0); LYMPH % 11.5 % (24.0-44.0); MEAN CORPUSCULAR HEMOGLOBIN 33.1 pg (27.0-33.0); MEAN CORPUSCULAR HGB CONC 31.5 g/dl (32.0-36.5); MONO # 0.4 10^3/uL (0.0-0.8); MONO % 5.2 % (0.0-5.0); NEUTROPHILS # 6.3 10^3/uL (1.5-8.5); NEUTROPHILS % 82.2 % (36.0-66.0); PLATELET COUNT, AUTOMATED 218 10^3/uL (150-450); RED BLOOD COUNT 3.78 10^6/uL (4.30-6.10); WHITE BLOOD COUNT 7.7 10^3/uL (4.0-10.0)
[2020-03-11 13:39] LABS: ALBUMIN 3.2 GM/DL (3.2-5.2); ALT/SGPT 63 U/L (12-78); AMYLASE 93 U/L (25-115); BILIRUBIN,TOTAL 0.3 MG/DL (0.2-1.0); BLOOD UREA NITROGEN 39 MG/DL (7-18); CALCIUM LEVEL 9.3 MG/DL (8.8-10.2); CARBON DIOXIDE LEVEL 25 MEQ/L (21-32); CHLORIDE LEVEL 104 MEQ/L (98-107); CREATININE FOR GFR 0.83 MG/DL (0.70-1.30); GLOMERULAR FILTRATION RATE > 60.0 (>42); GLUCOSE, FASTING 169 MG/DL (70-100); LIPASE 297 U/L (73-393); POTASSIUM SERUM 3.6 MEQ/L (3.5-5.1); PROSTATIC SPECIFIC AG MONITOR 0.14 NG/ML (< 4.00); SODIUM LEVEL 140 MEQ/L (136-145); TOTAL PROTEIN 7.2 GM/DL (6.4-8.2)
== END ==
PROVIDERS: ATTEND Internal Medicine
DX: R45.1 Restlessness and agitation (principal); R63.4 Abnormal weight loss; R94.8 Abnormal results of function studies of other organs and systems

== ENCOUNTER → 2020-03-14 | Outpatient (CLI) | payer MEDICARE ==
[~2020-03-14] MED LIST changes: +ASPI-546 PO; -ASPI1TAB15 PO; +GASTROGRAFIN SOLUTION 30ML (Q9963) As Ordered ONE; +ISOVUE-370 76% 100ML VIAL As Ordered ONE; +PANT40TA29 PO; -PANT40TA3 PO
--- NOTE | 2020-03-14 11:47 | REP ---
REASON FOR EXAM: Left flank pain. The latest prior for comparison is 04/09/2008. CONTRAST: 100 mL Isovue 370. Respiratory motion artifact seen in the lung bases. Subsegmental atelectatic changes are suspected. There are no pleural or pericardial effusions. There are marked innumerable mixed and particularly peripherally enhancing lesions seen through the liver representing a change from the prior exam. Multiple abnormal focal low density lesions have also developed in the spleen. There is intrapancreatic ductal dilatation which has developed since the last exam. The gallbladder, adrenal glands, and kidneys are unchanged. There is a right adrenal gland nodule status quo. The abdominal aorta and para-aortic regions are essentially unchanged. No periaortic adenopathy has developed. The bowel loops and their mesenteries are within normal limits. There is no free fluid or free air. There is significant spray artifact arising from the left hip prosthesis obscuring multiple pelvic images and limiting evaluation of the intrapelvic contents. There is no evidence of pelvic adenopathy. Bone window technique throughout the exam shows a left hip prosthesis along with spinal degenerative changes and suspected bony demineralization. IMPRESSION: 1. Abnormal hepatic and splenic findings as described above highly suspicious for primary or metastatic carcinoma. These findings represent a change from the prior exam. 2. Abnormal intrapancreatic ductal dilatation up to 5 mm has developed since the last exam. There are no enhancing pancreatic regions, however pancreatic neoplasm cannot be ruled out causing ductal obstruction. 3. Benign right adrenal gland nodule unchanged from prior exam. 4. Other findings and limitations as described above. Electronically Signed by Gerardo Tang DO 03/14/2020 04:59 P
== END ==
LOC: M RAD 08:56
PROVIDERS: ATTEND Nurse Practitioner Adult Health
DX: K86.89 Other specified diseases of pancreas (principal); E27.9 Disorder of adrenal gland, unspecified; R63.4 Abnormal weight loss; R10.32 Left lower quadrant pain
CPT/HCPCS: 74177; Q9963; Q9967